=== PATIENT | female | born 1960 | race Caucasian/White ===

== ENCOUNTER → 2018-01-30 16:22 | Outpatient (REF) | payer BC, SELFPAY ==
[2018-01-30 21:05] LABS: Abs Immature Grans 0.04 k/cumm (0.0-0.09); Absolute Basophil Count 0.01 k/cumm (0.0-0.2); Absolute Monocyte Count 0.84 k/cumm (0.11-0.7); Basophils % 0.1; Eosinophils % 0.9; HCT 41.6 % (36.0-46.0); HGB 14.5 g/dL (12.0-15.5); Immature Grans % 0.4; Lymphocytes % 19.7; Mean Corp. HGB Concentration 34.9 g/dL (32.0-36.0); Mean Corpuscular Hemoglobin 30.5 pg (27.0-33.0); Mean Corpuscular Volume 87.4 fL (80-95); Monocytes % 7.7; Neutrophils % 71.2; Platelet Count 265 x1000/uL (130-400); RBC 4.76 m/cumm (4.00-5.20); White Blood Cell Count 10.94 k/cumm (4.4-10.8)
[2018-01-30 21:08] LABS: Absolute Lymphocyte Count 2.16 k/cumm (1.2-3.4); Absolute Neutrophil Count 7.79 k/cumm (1.2-6.7)
[2018-01-30 21:23] LABS: ALT 48 U/L (12-78); AST 25 U/L (15-37); Albumin 4.3 g/dL (3.4-5.0); Alkaline Phosphatase 96 U/L (46-116); Anion Gap 12.6 mmol/L (3-11); BUN 16 mg/dL (7-18); Bilirubin, Total 0.6 mg/dL (0.2-1.0); CO2 25.4 mmol/L (21.0-32.0); CREATININE 0.81 mg/dL (0.55-1.02); Calcium 8.9 mg/dL (8.5-10.1); Chloride 99 mmol/L (98-107); Glucose 137 mg/dL (70-100); Magnesium 2.1 mg/dL (1.8-2.4); Potassium 4.1 mmol/L (3.5-5.1); Sodium 137 mmol/L (136-145); TSH (W/Ref FT4) 0.95 uIU/mL (0.358-3.74); Total Protein 7.5 g/dL (6.4-8.2)
== END ==
LOC: NCHCN 16:22
PROVIDERS: Visit Provider Nurse Practitioner
DX: R51 Headache (principal)
CPT/HCPCS: 80053; 83735; 84443; 85025

== ENCOUNTER → 2018-02-05 01:10 | Outpatient (CLI) | payer BC, SELFPAY ==
--- NOTE | 2018-02-05 14:00 | DI.RPTCT_ITS ---
SYMPTOMS/DIAGNOSIS: HEADACHES, R51 CRANIAL CT: A noncontrast cranial CT was performed. The ventricular system is normal in appearance. There is no evidence of an intracranial mass lesion. There is no evidence of a subdural or epidural hematoma. No focal areas of decreased attenuation are seen. CONCLUSION: Normal noncontrast cranial CT.
== END ==
PROVIDERS: Visit Provider Nurse Practitioner
DX: R51 Headache (principal)
CPT/HCPCS: 70450

== ENCOUNTER → 2018-02-05 18:07 | Outpatient (REF) | payer BC, SELFPAY ==
[2018-02-05 21:28] LABS: Bilirubin Negative (Negative); Blood Negative (Negative); Clarity Clear; Glucose Negative (Negative); Ketones Negative (Negative); Leukocyte Esterase Negative (Negative); Nitrite Negative (Negative); Urobilinogen 0.2 EU/dL (Up TO 0.2)
== END ==
LOC: NCHCN 18:07
PROVIDERS: Visit Provider Nurse Practitioner
DX: N39.0 Urinary tract infection, site not specified (principal)
CPT/HCPCS: 81003

== ENCOUNTER 2018-04-17 13:28 | Outpatient (REF) | payer BC, SELFPAY ==
[2018-04-17 21:25] LABS: Magnesium 1.8 mg/dL (1.8-2.4); TSH 0.82 uIU/mL (0.358-3.74)
[2018-04-17 21:58] LABS: ESR 14 MM/HR (0-30)
[2018-04-17 22:04] LABS: Vitamin B12 551 pg/mL (193-986)
[2018-04-20 09:21] LABS: Cyclic Citrullinated Peptide <2.5 U/mL (<5.0)
[2018-04-20 12:25] LABS: Hepatitis C Ab w Rflx HCV PCR Negative (NEGAT)
[2018-04-20 13:55] LABS: ANA Interpretation Negative (NEGAT)
== END 2018-04-17 13:48 ==
LOC: NCHCN 13:28
PROVIDERS: Visit Provider Nurse Practitioner Family
DX: Z00.00 Encounter for general adult medical examination without abnormal findings (principal); R05 Cough; R47.01 Aphasia; L81.4 Other melanin hyperpigmentation; R20.2 Paresthesia of skin; M25.50 Pain in unspecified joint; M54.16 Radiculopathy, lumbar region; Z11.59 Encounter for screening for other viral diseases; Z01.84 Encounter for antibody response examination
CPT/HCPCS: 85652; 86141; 86200; 86803; 82607; 83735; 84443; 86038; 86140

== ENCOUNTER 2019-01-28 08:35 | Outpatient (REF) | payer BC, SELFPAY ==
[2019-01-28 12:23] LABS: ALT 30 U/L (12-78); AST 17 U/L (15-37); Albumin 3.6 g/dL (3.4-5.0); Alkaline Phosphatase 93 U/L (46-116); Anion Gap 9.9 mmol/L (3-11); BUN 13 mg/dL (7-18); Bilirubin, Total 0.6 mg/dL (0.2-1.0); CO2 27.1 mmol/L (21.0-32.0); CREATININE 0.71 mg/dL (0.55-1.02); Calcium 8.7 mg/dL (8.5-10.1); Chloride 103 mmol/L (98-107); Glucose 86 mg/dL (70-100); Magnesium 1.8 mg/dL (1.8-2.4); Potassium 4.3 mmol/L (3.5-5.1); Sodium 140 mmol/L (136-145); Total Protein 6.8 g/dL (6.4-8.2); Vitamin B12 519 pg/mL (193-986)
== END 2019-01-28 08:55 ==
LOC: NCHCN 08:35
PROVIDERS: Visit Provider Nurse Practitioner Family
DX: I10 Essential (primary) hypertension (principal); E78.5 Hyperlipidemia, unspecified
CPT/HCPCS: 80053; 82607; 83735

== ENCOUNTER 2019-02-04 13:16 | Outpatient (REF) | payer BC, SELFPAY ==
[2019-02-04 21:36] LABS: C-Reactive Protein 0.21 mg/dL (0.0-0.3)
[2019-02-08 09:19] LABS: Cyclic Citrullinated Peptide <2.5 U/mL (<5.0)
[2019-02-08 13:14] LABS: Rheumatoid Factor <8 IU/mL (<12.5)
[2019-02-08 15:43] LABS: ANA Interpretation Negative (NEGAT)
== END 2019-02-04 13:36 ==
LOC: NCHCN 13:16
PROVIDERS: PCP Nurse Practitioner Family; Visit Provider Nurse Practitioner Family
DX: I10 Essential (primary) hypertension (principal); M25.50 Pain in unspecified joint; M54.16 Radiculopathy, lumbar region; G43.909 Migraine, unspecified, not intractable, without status migrainosus; G44.209 Tension-type headache, unspecified, not intractable; R47.01 Aphasia; F43.20 Adjustment disorder, unspecified; L98.9 Disorder of the skin and subcutaneous tissue, unspecified
CPT/HCPCS: 85652; 86200; 86038; 86140; 86431

== ENCOUNTER 2019-02-05 12:04 | Outpatient (REF) | payer BC, SELFPAY ==
[2019-02-05 13:08] LABS: ESR 10 mm/hr (0-30)
== END 2019-02-05 12:24 ==
LOC: NCHCN 12:04
PROVIDERS: PCP Nurse Practitioner Family; Visit Provider Nurse Practitioner Family
DX: I10 Essential (primary) hypertension (principal); M54.16 Radiculopathy, lumbar region; M25.50 Pain in unspecified joint; G43.909 Migraine, unspecified, not intractable, without status migrainosus; G44.209 Tension-type headache, unspecified, not intractable
CPT/HCPCS: 85652

== ENCOUNTER 2019-05-06 08:26 | Outpatient (REF) | payer BC, SELFPAY ==
--- NOTE | 2019-05-06 07:47 | LIPBX_PTH ---
PATIENT: Yen Matthews LOC: N U#:[id number] AGE/SX: 58/F ROOM: RE05/06/[address]: Chevy Bowser MD : 1960 BED: DIS: 05/06/2019 SPEC #: [id number] RECD: 05/06/19 18:23 STATUS: PARVEEN REQ #: [id number] FANTA: 05/06/19 07:[address]: Chevy Bowser DEPT: Surgical Specimen RECD BY: Magy Garrido ENTERED: 05/06/19 18:24 SP TYPE: LIPBX OTHR DR: Joan Saez Tissues: 1 - LIP BIOPSY/RESECTION Procedures: GROSS AND MICRO LEVEL 4 Comments: [id number]
== END 2019-05-06 08:46 ==
LOC: LBN 08:26
PROVIDERS: PCP Nurse Practitioner Family; Visit Provider Otolaryngology
DX: C44.01 Basal cell carcinoma of skin of lip (principal)
CPT/HCPCS: 88305

== ENCOUNTER 2019-06-01 13:40 | Outpatient (CLI) | payer BC, SELFPAY ==
[2019-06-01 14:20] VITALS: BP 125/77; PULSE 71; RESP 16; TEMP 36.7; O2SAT 97
--- NOTE | 2019-06-01 15:22 | PDOC.PAIN ---
Pain Clinic Procedure Note Procedure Note Procedure Note: OCCIPITAL NERVE BLOCK PROCEDURE NOTE The patient complains of left occipital head pain. Dx: Left Greater and Lesser Occipital Neuralgia Post-operative diagnosis: same as above ROGELIO LENNON was greeted by the nurse who verified patients name and . Ms Lennon was interviewed and the medical record reviewed. There were no medical, pharmacologic, radiographic, or other structural contraindications to attempting left greater and lesser occipital nerve blocks. Risks and potential side effects were discussed. The potential benefits of the procedure were reviewed with Ms Lennon and her voiced concerns were addressed. After obtaining informed consent, the patient consent form was signed. Standard time-out procedure was performed. ROGELIO was placed in the prone position on the examination table. The occipital protuberance was palpated. The skin just to left side of the occipital protuberance and out 2 inches lateral to the protuberance was thoroughly prepared with an alcohol preparation. Next, I entered the skin to each side of the protuberance with a 1.5 25G spinal needle. Aspiration revealed no blood or other fluid. Next, I injected 2 cc of preservative-free 1% Lidocaine with 0.5cc of dexamethasone (10mg/cc) and removed the needle. I then placed the needle 2 inches lateral mastoid process on th left side to target the lesser greater occipital nerve. Next, I injected 2 cc of preservative-free 1% Lidocaine mixed with 0.5cc of dexamethasone (10mg/cc) to each side and removed the needles. Follow up plans and appointments were discussed with ROGELIO . Post procedure instruction was given. Having met discharge criteria he was discharged from the [facility]. I personally performed this entire procedure. Comment: patient expressed concerns today that she feels there is another reason for her headache, she is willing to try today's injection to see if her headache improves, but she really wishes one of her physicians is willing to order a CT head to make sure nothing is wrong inside her head. She also is dealing with the sudden passing of her niece froma MVA about two weeks ago, she is very stressed out from an emotional perspective. She tolerated procedure well and she feels left sided neck and posterior headache is about 50% improved after the injection, but she will continue to monitor her symptoms. Chavo Velez MD Attending Physician - Pain Management
[2019-06-01] MEDS: Dexamethasone Sod. Phos./Pres-Free 10 MG/ML VIAL IJ (15:35)
== END 2019-06-01 14:00 ==
PROVIDERS: PCP Nurse Practitioner Family; Visit Provider Internal Medicine
DX: M54.81 Occipital neuralgia (principal)
CPT/HCPCS: 64405

== ENCOUNTER 2019-07-23 01:55 | Outpatient (CLI) | payer BC, SELFPAY ==
--- NOTE | 2019-07-23 14:40 | DI.MRI_ITS ---
EXAM: MR BRAIN WO CLINICAL HISTORY: new headache G44.52. TECHNIQUE: Multiplanar multisequence MRI was performed. COMPARISON: No exams were available for comparison FINDINGS: MR of the brain was performed according to the usual protocol. Ventricular system is normal in kurt andersen. There are nonspecific scattered foci of abnormal signal in periventricular and subcortical wh ite matter T2 weighted and FLAIR images. These presumably represent areas of microvascular ischemia. Susceptibility weighted imaging shows no evidence of intracranial hemorrhage. Diffusion-weighted nesha ging shows no evidence of cerebral infarction. The orbital and temporal bone structures appear intac t. Pituitary is unremarkable. There is normal flow void in the xrfxgs-sk-Sfrzma vasculature. IMPRESSION: No evidence of acute intracranial process.
== END 2019-07-23 02:15 ==
PROVIDERS: PCP Nurse Practitioner Family; Visit Provider Nurse Practitioner Adult Health
DX: G44.52 New daily persistent headache (NDPH) (principal); I67.82 Cerebral ischemia
CPT/HCPCS: 70551

== ENCOUNTER 2019-08-10 02:04 | Outpatient (CLI) | payer BC, SELFPAY ==
--- NOTE | 2019-08-10 | DI.MAMMO_ITS ---
EXAM: MG MAMMO SCREENING CLINICAL HISTORY: SCREENING Z12.31. TECHNIQUE: Bilateral full field digital CC and MLO mammographic images were obtained with 3D tomosyn thesis and utilizing computer aided detection (CAD). COMPARISON: Available for comparison. FINDINGS: Masses/Architectural Distortion: None seen. Microcalcifications: No suspicious pleomorphic-type are seen. Skin Thickening/Nipple Retraction: None. IMPRESSION: 1. No significant interval change with no specific features of malignancy noted. 2. Unless there is more urgent need, screening mammography is recommended, as per [employer] guidelines. ACR BI-RAD Category- 1 Negative Breast Density - Category B - Scattered areas of fibroglandular density A negative radiographic report should not delay biopsy if a dominant or clinically suspicious mass is present. Up to ten percent of cancers are not identified on mammography. A negative report may reinforce clinical impression. Adenosis and dense breasts may obscure an underlying neoplasm. False positive reports average 6 to 10%. Patient will receive a letter notifying them of these results.
== END 2019-08-10 02:24 ==
PROVIDERS: PCP Nurse Practitioner Family; Visit Provider Nurse Practitioner Family
DX: Z12.31 Encounter for screening mammogram for malignant neoplasm of breast (principal)
CPT/HCPCS: 77063; 77067

== ENCOUNTER 2020-01-26 03:19 | Outpatient (CLI) | payer BC, SELFPAY ==
--- NOTE | 2020-01-26 | DI.MRI_ITS ---
EXAM: MR LUMBAR SPINE WO CLINICAL HISTORY: LUMBAR BACK PAIN, WITH RADICULOPATHY,M54.16. TECHNIQUE: Multiplanar multisequence MRI was performed. COMPARISON: No exams were available for comparison FINDINGS: MR examination lumbosacral spine was performed according to usual protocol. Note is made of Colette dis esmer vertebral signal changes at the L5-S1 level consistent with disc degeneration. No other signific ant bony signal abnormality seen. There is an apparent healed bilateral L5 spondylolysis without spondylolisthesis. There mild hypertr ophic degenerative changes of the facet joints at L4-5 and L5-S1. Conus medullaris appears intact. There are disc bulges noted of L3-4 L4-5 and L5-S1. There is no di sc herniation at these levels or elsewhere in the lumbar spine. There is no central canal spinal betty nosis. There does appear to be slight neural foraminal stenosis bilaterally at L5-S1. IMPRESSION: Probable healed spondylolysis bilaterally at L5 without spondylolisthesis. Mild bilateral neural foraminal narrowing at L5-S1. DATA REPOSITORY:
== END 2020-01-26 03:39 ==
PROVIDERS: PCP Nurse Practitioner Family; Visit Provider Nurse Practitioner Family
DX: M47.26 Other spondylosis with radiculopathy, lumbar region (principal); M54.16 Radiculopathy, lumbar region; M48.07 Spinal stenosis, lumbosacral region
CPT/HCPCS: 72148

== ENCOUNTER 2020-02-08 11:48 | Outpatient (REF) | payer BC, SELFPAY ==
[2020-02-08 22:23] LABS: ALT 34 U/L (14-59); AST 18 U/L (15-37); Albumin 4.2 g/dL (3.4-5.0); Alkaline Phosphatase 74 U/L (46-116); Anion Gap 9.9 mmol/L (3-11); BUN 7 mg/dL (7-18); Bilirubin, Total 1.1 mg/dL (0.2-1.0); CO2 26.1 mmol/L (21.0-32.0); CREATININE 0.53 mg/dL (0.55-1.02); Calcium 9.2 mg/dL (8.5-10.1); Chloride 101 mmol/L (98-107); Glucose 97 mg/dL (74-106); Magnesium 1.9 mg/dL (1.8-2.4); Potassium 4.3 mmol/L (3.5-5.1); Sodium 137 mmol/L (136-145); Total Protein 7.1 g/dL (6.4-8.2); Vitamin B12 587 pg/mL (193-986)
== END 2020-02-08 12:08 ==
LOC: NCHCN 11:48
PROVIDERS: PCP Nurse Practitioner Family; Visit Provider Nurse Practitioner Family
DX: I10 Essential (primary) hypertension (principal); F41.9 Anxiety disorder, unspecified; K21.9 Gastro-esophageal reflux disease without esophagitis; F43.20 Adjustment disorder, unspecified; G43.909 Migraine, unspecified, not intractable, without status migrainosus; M25.50 Pain in unspecified joint; M54.16 Radiculopathy, lumbar region; J30.2 Other seasonal allergic rhinitis
CPT/HCPCS: 80053; 82607; 83735

== ENCOUNTER 2020-04-11 09:59 | Outpatient (CLI) | payer BC, SELFPAY ==
--- NOTE | 2020-04-11 06:00 | DI.RAD_ITS ---
EXAM: XR PAIN CLINIC SACRIOILIAC 2V CLINICAL HISTORY: Dx: Sacroiliac Joint Dysfunction, LT SI JOINT INJECTION TECHNIQUE: Fluoroscopy was provided for the referring physician for guidance with performing injecti on procedure. COMPARISON: No exams were available for comparison FINDINGS: Please see procedure note for details. FLUORO TIME: 26.2 seconds RADIATION DOSE DELIVERED:
[2020-04-11 10:09] VITALS: BP 129/77; PULSE 56; RESP 16; TEMP 36.7; O2SAT 96
--- NOTE | 2020-04-11 10:48 | PDOC.PAIN_ITS ---
Pain Clinic Procedure Note Procedure Note Procedure Note: INTRA-ARTICULAR SI JOINT INJECTION ROGELIO QUEZADA has been referred to the [facility] for intra- articular SI joint injection. Pre-operative diagnosis: disorder of sacrum Post-operative diagnosis: same as above COMMENTS: patient has left sided lower back pain with radiation to left hip, buttock. she was evaluated by Ms Lia Flores and diagnosed with left sacroiliac mediated pain. she is referred for a left SI joint injection for both diagnostic and therapeutic purposes. Patient was interviewed and the medical record reviewed. There were no medical, pharmacologic, radiographic or other structural contraindications to attempting fluoroscopically guided intra-articular SI joint injection. Risks and expected side effects as well as potential benefit of the procedure were reviewed and voi elida concerns addressed. The printed consent form was signed and witnessed. Standard time-out procedure was performed. Patient was placed in the prone position on the fluoroscopy table and automated blood pressure cuff and pulse oximeter applied. The skin entry point for approaching left SI joints was identified under the most advantageous fluoroscopic view and marked. Following thorough Chlorhexadine preparation of the skin and draping and 1% lidocaine infiltration of the skin entry point and subcutaneous tissues, a 22 gauge spinal needle was placed under fluoroscopic guidance into left SI joints was identified under the most advantageous fluoroscopic view and marked. Following thorough Chlorhexadine preparation of the skin and draping and 1% lidocaine infiltration of the skin entry point and subcutaneous tissues, a 22 gauge spinal needle was placed under fluoroscopic guidance into left SI joint. Intra-articular placement was confirmed by a clear arthrogram resulting from the injection of 0.25ml Omnipaque 240, 1ml 1% lidocaine, and 40mg Depomedrol were injected intra-articularily with an initial reproduction of a significant component of the usual pain. Vital signs were stable throughout the procedure and were as recorded in the docflowsheet by the nursing staff. Follow up plans and appointments were discussed with the patient. Post procedure instruction was given as documented in nursing documentation and having met discharge criteria, and was discharged from the [facility]. COMMENTS: patient tolerated procedure well. Chavo Velez MD Pain Management CC: Joan Saez
[2020-04-11 10:57] VITALS: BP 136/81; PULSE 57; RESP 13; O2SAT 99
[2020-04-11] MEDS: Lidocaine 1% Pres-Free 5 ML VIAL (10:58)
[2020-04-11] MEDS: methylPREDNISolone ACETATE 40 MG/ML VIAL IJ (10:59)
[2020-04-11] MEDS: Omnipaque 240 MG/ML 50 ML BTL IJ (10:59)
== END 2020-04-11 10:19 ==
PROVIDERS: PCP Nurse Practitioner Family; Visit Provider Internal Medicine
DX: M53.3 Sacrococcygeal disorders, not elsewhere classified (principal)
CPT/HCPCS: 27096; 72200; J1030; Q9967

== ENCOUNTER 2020-05-31 10:54 | Emergency (ER) | payer BC, SELFPAY ==
[2020-05-31] VITALS (14 sets, daily range): BP systolic 125–164; BP diastolic 72–86; PULSE 51–73; RESP 10–20; TEMP 36.3–36.5; O2SAT 94–99
--- NOTE | 2020-05-31 11:00 | RT.EKG_ITS ---
APPROVED REPORT Exam: Resting ECG Patient Location: E HR:58 bpm ECG Measurements Heart Rate 58 AXIS [place] 157 P 20 QRSd 65 QRS 39 QT 400 T 14 QTc 392 Conclusion Sinus bradycardia...rate< 60
--- NOTE | 2020-05-31 11:15 | DI.CT_ITS ---
EXAM: CT HEAD WO CLINICAL HISTORY: ED study: Vertigo, abrupt onset. TECHNIQUE: Imaging Protocol: Axial computed tomography images with coronal and sagittal reformatted images were created and reviewed COMPARISON: CT HEAD WITHOUT CONTRAST from 02/05/2018 FINDINGS: There are no skull fractures nor fluid in the visualized paranasal sinuses. There is no evidence of intracranial hemorrhage, mass effect, or shift of midline structures. There are no extra-axial fluid collections. The ventricles are not enlarged or shifted and there is no blo od within the ventricular system nor within the basal cisterns. IMPRESSION: No acute intracranial findings on this noninfused CT scan of the brain.No significant change compared to prior study January 2018. RADIATION DOSE DELIVERED: 737mGy.cm Total DLP DATA REPOSITORY: All CT scans at this facility are submitted to the National Radiology Data Registry (NRDR) Dose Index Registry (DIR) with the [employer] (ACR). RADIATION OPTIMIZATION: All CT scans at this facility use at least one of these dose optimization te chniques: automated exposure control; mA and/or kV adjustment per patient size (includes targeted exa ms where dose is matched to clinical indication); or iterative reconstruction.
--- NOTE | 2020-05-31 11:17 | W.ED.GENAD ---
Discharge Plan Disposition Patient Disposition: HOME Condition: Improving Discharge Details Clinical Impression: Peripheral vertigo Primary Care Provider: Joan Saez ED Provider: Amilcar East Home Meds and New Rx's Prescriptions: New meclizine 25 mg tablet 25 mg PO TID PRN (Reason: dizziness) Qty: 10 RF: 0 Continued spironolactone 50 mg tablet 50 mg PO DAILY RF: 0 bisacodyl [Dulcolax (bisacodyl)] 5 mg tablet,delayed release (DR/EC) 5 mg PO TID RF: 0 potassium chloride 20 mEq tablet extended release 20 meq PO BID RF: 0 acetaminophen [Tylenol Extra Strength] 500 mg tablet 500 mg PO DAILY RF: 0 fluticasone propionate [Flonase Allergy Relief] 50 mcg/actuation Trevorton,Suspension 1 spray INTRANASAL BID RF: 0 vitamin E 400 unit Capsule 400 unit PO DAILY RF: 0 ascorbic acid (vitamin C) [Vitamin C] 500 mg Tablet 500 mg PO BID RF: 0 gabapentin 300 mg Capsule 600 mg PO HS RF: 0 hydroxyzine HCl 25 mg Tablet 25 mg PO TID PRNRF: 0 loratadine 10 mg tablet 10 mg PO DAILY RF: 0 magnesium oxide 400 mg magnesium tablet 400 mg PO TID RF: 0 diclofenac sodium 1 % gel 4 g topical QID PRN (Reason: joint pain) 6 Days Qty: 100 RF: 11 atorvastatin [Lipitor] 10 MG tablet 10 mg PO HS RF: 0 omeprazole [Prilosec] 40 MG capsule,delayed release(DR/EC) 40 mg PO DAILY RF: 0 losartan 100 MG tablet 100 mg PO DAILY RF: 0 cholecalciferol (vitamin D3) [Vitamin D3] 2,000 UNIT capsule 1,000 units PO DAILY RF: 0 levalbuterol tartrate [Xopenex HFA] 15 GM HFA aerosol inhaler 2 puff Inhalation Q6H PRNRF: 0 Xarelto 20 MG tablet 20 mg PO DAILY RF: 0 Discharge Instructions Instructions: Vertigo (ED), Benign Paroxysmal Positional Vertigo (ED) Additional Instructions: Small, frequent sips of fluids so that she maintain hydration. Sleep with head of bed elevated 30 to 45 degrees for the next 2 nights. No rapid movements of the head or quickly bending over. Use meclizine as needed, as prescribed for persistent dizziness. Continue your regularly prescribed medications. Medical Decision Making 59-year-old female presents with the abrupt onset of dizziness since bending over to grab something out of the fridge last night. Since that time she feels dizziness and unsteadiness of gait. She will note significant stress in her life due to family stressors. She arrives to the ER blood pressure 164/86, rechecked at 138/72. Vital signs otherwise unremarkable. Neurologic exam is without focal deficits. Referred for screening blood work and CT to rule out mass or hemorrhage. The CT is unremarkable. Patient also underwent normal MRI of the brain. Labs note normal CBC, chemistries with sodium 133, potassium 4.0, chloride 97, bicarb 28. BUN 19 creatinine 0.7. Patient was given Ativan for anxiolysis prior to MRI. Patient improved and no further dizziness. No focal neurologic deficits. Consistent with peripheral vertigo. Discussed with her use of as needed meclizine. She is stable and appropriate for outpatient management. HPI General Mode of arrival: ambulatory. Date/Time Provider Initiated Documentation: 05/31/20 11:01. Limitations to Documentation: no limitations. Information obtained by: patient. History of Present Illness 59 year old F presents to the emergency department with the chief complaint of Dizziness since last night, described as moderate, Quality is described as dull, and is localized to the head. Patient reports no radiation. and it has been constant. Rest improves symptom(s), Other factors that worsen symptoms (Standing up quickly) . Patient notes denies headaches, syncope and weakness. Patient did receive the following treatments prior to arrival, none Related Data Home Medications Medication Instructions Recorded Confirmed atorvastatin [Lipitor] 10 mg PO HS 03/19/13 05/31/20 cholecalciferol (vitamin D3) 1,000 units PO DAILY 03/19/13 05/31/20 [Vitamin D3] losartan 100 mg PO DAILY 03/19/13 05/31/20 omeprazole [Prilosec] 40 mg PO DAILY 03/19/13 05/31/20 Xarelto 20 mg PO DAILY 01/27/16 05/31/20 levalbuterol tartrate [Xopenex HFA] 2 puff INHALATION Q6H PRN 01/27/16 05/31/20 acetaminophen 500 mg tablet 500 mg PO DAILY tab 03/10/18 05/31/20 bisacodyl 5 mg tablet,delayed 5 mg PO TID tab 03/10/18 05/31/20 release potassium chloride 20 mEq 20 meq PO BID 03/10/18 05/31/20 tablet,extended release spironolactone 50 mg tablet 50 mg PO DAILY 03/10/18 05/31/20 fluticasone propionate [Flonase 1 spray INTRANASAL BID 04/28/19 05/31/20 Allergy Relief] vitamin E 400 unit PO DAILY 04/28/19 05/31/20 loratadine 10 mg tablet 10 mg PO DAILY 07/06/19 05/31/20 magnesium oxide 400 mg PO TID tab 07/06/19 05/31/20 ascorbic acid (vitamin C) [Vitamin 500 mg PO BID 03/08/20 05/31/20 C] gabapentin 600 mg PO HS 03/08/20 05/31/20 hydroxyzine HCl 25 mg PO TID PRN 03/08/20 05/31/20 diclofenac sodium 1 % topical gel 4 g TOPICAL QID PRN 6 Days #100 g 05/24/20 05/31/20 meclizine 25 mg PO TID PRN #10 tab 05/31/20 Previous Rx's Medication Instructions Recorded diclofenac sodium 1 % topical gel 4 g TOPICAL QID PRN 6 Days #100 g 05/24/20 meclizine 25 mg PO TID PRN #10 tab 05/31/20 Allergies Allergy/AdvReac Type Severity Reaction Status Date / Time lisinopril Allergy Unverified 04/11/20 10:07 sulfamethoxazole Allergy Hives Unverified 04/11/20 10:07 [From Bactrim] trimethoprim [From Bactrim] Allergy Hives Unverified 04/11/20 10:07 venom-honey bee Allergy Unverified 04/11/20 10:07 metoprolol AdvReac Mild Contraindic Unverified 04/11/20 10:07 ated General Stated Complaint: Dizzy/Sync MARION: 2 Review of Systems Narrative: Six systems reviewed and otherwise negative [facility] Medical History Abdominal pain, epigastric Anxiety Aphasia Atrial fibrillation Chronic back pain Chronic cough Dysphagia GERD (gastroesophageal reflux disease) Grief reaction H/O measles Heel spur Hiatal hernia HTN (hypertension) Hyperlipidemia IBS (irritable bowel syndrome) Lactose intolerance Menopausal syndrome (hot flashes) Migraine headache with aura Migraine headache without aura Obesity Paresthesia Preventative health care Screening mammogram, encounter for Seasonal allergies Skin lesion of face Solar lentigo Tension headache Surgical History Achilles tendon tear both repaired here. Colonoscopy - MAC (06/20/17) H/O cardiac radiofrequency ablation H/O esophagogastroduodenoscopy Social History Smoking/Tobacco Use Status: Never Smoking risk assessment performed?: Yes Alcohol Intake: current Alcohol Intake frequency: a few times a week Drug use: Never Substance use type: does not use Household members: spouse Housing: house Number of Children: 2 current occupation: Retired teacher What is your relationship status?: Panel score (0-1 are the most socially isolated patients): 1 What type of physical activity do you participate in: walking, independent ambulation and additional Details: barn chores and stretches with kids at school Frequency: daily Do you feel safe at home: Yes Do you feel safe in your relationship?: Yes Exam Narrative Exam Narrative: GEN: awake, alert, oriented 3. Pleasant, well groomed, interactive. HEAD: Normocephalic, atraumatic ENT: Mucous membranes moist, oropharynx unremarkable, tympanic membranes clear bilaterally external ear exam unremarkable EYES: PERRL, EOMI NECK: Full ROM, no CELSO, no menigismus CHEST/RESP: Nontender, clear to auscultation bilateral, no wheeze/rhonchi/rales CARDIOVASCULAR: RRR, no murmur, rub stephanie. 2+ Rad pulse bilateral ABDOMEN: Soft, nontender, no mass. +Bowel sounds EXT: Full ROM, no edema, no rash Neuro: Cranial nerves II through XII intact, sjquvj-sy-yjtk intact, gait wide-based, otherwise grossly normal neurologic exam, conversant, interactive. Pt states L face sensation intact but diminished Psych: Speech fluent, thoughts congruent, affect normal Course Vital Signs Vital signs: Vital Signs Temperature 36.3 C L 05/31/20 10:58 Pulse 60 05/31/20 10:58 Respiratory Rate 18 05/31/20 10:58 Blood Pressure 164/86 H 05/31/20 10:58 Pulse Oximetry 98 05/31/20 10:58 Temperature 36.3 C L 05/31/20 10:58 Temperature Source Temporal Artery Scan 05/31/20 10:58 Pulse 60 05/31/20 10:58 Respiratory Rate 18 05/31/20 10:58 Respiratory Effort 05/31/20 11:01 Blood Pressure 142/73 H 05/31/20 11:01 Blood Pressure Position Sitting 05/31/20 10:58 Pulse Oximetry 98 05/31/20 10:58 Oxygen Delivery Method Room Air 05/31/20 10:58 Oxygen Flow Rate 0 05/31/20 10:58
[2020-05-31] MEDS: Meclizine 25 MG TAB PO ×2 (11:32)
[2020-05-31] MEDS: Normal Saline 1,000 ML 1000 ML IV (11:33)
[2020-05-31 11:38] LABS: Abs Immature Grans 0.02 10^3/uL (0.0-0.06); Absolute Basophil Count 0.02 10^3/uL (0.0-0.2); Absolute Eosinophil Count 0.11 10^3/uL (0.0-0.7); Absolute Lymphocyte Count 1.97 10^3/uL (1.2-3.4); Absolute Monocyte Count 0.51 10^3/uL (0.1-0.8); Absolute Neutrophil Count 3.09 10^3/uL (1.2-6.7); Basophils % 0.3; Eosinophils % 1.9; HCT 40.5 % (36.0-46.0); Immature Grans % 0.3; Lymphocytes % 34.4; MCH 29.9 pg (27.0-33.0); MCHC 34.6 % (32.0-36.0); MCV 86.4 fL (80-95); MPV 9.3 fL (8.0-11.0); Monocytes % 8.9; Neutrophils % 54.2; Nucleated RBC 0 %; Platelet Count 245 10^3/uL (130-400); RBC 4.69 10^6/uL (3.93-5.22); RDW 13.5 % (11.7-14.6); RDW-SD 42.5 fL; WBC 5.72 10^3/uL (4.4-10.8)
[2020-05-31 11:50] LABS: ALT 32 U/L (14-59); AST 19 U/L (15-37); Albumin 4.1 g/dL (3.4-5.0); Alkaline Phosphatase 66 U/L (46-116); Anion Gap 7.5 mmol/L (3-11); BUN 9 mg/dL (7-18); Bilirubin, Total 0.9 mg/dL (0.2-1.0); CO2 28.5 mmol/L (21.0-32.0); CREATININE 0.78 mg/dL (0.55-1.02); Chloride 97 mmol/L (98-107); Glucose 94 mg/dL (74-106); Sodium 133 mmol/L (136-145); Total Protein 7.3 g/dL (6.4-8.2)
[2020-05-31 11:51] LABS: Troponin I < 0.05 ng/mL (<0.06)
--- NOTE | 2020-05-31 12:00 | DI.MRI_ITS ---
EXAM: MR BRAIN WO CLINICAL HISTORY: Dizziness, L face parasthesia TECHNIQUE: Multiplanar multisequence MRI of the brain was performed. COMPARISON: MR MR BRAIN WO from 07/23/2019 FINDINGS: CEREBRAL PARENCHYMA: No evidence of intracranial hemorrhage, mass effect nor shift of midline structu re. No extraaxial fluid collections. Ventricles are not enlarged nor shifted. There is no significant focal signal abnormality in the cerebellar hemispheres nor within the anant, m idbrain, and thalami. There are numerous FLAIR bright foci of white matter signal abnormality in the Colette ventricular white matter and also in the right external capsule region. These findings are unchanged from the prior M RI study of 07/23/2019. No new additional abnormal brain foci evident. There is no significant focal signal abnormality evident on diffusion imaging to suggest acute ischem ic event. PITUITARY GLAND: No mass nor parasellar abnormality. No obvious abnormality in the cavernous sinuses. FLOW VOIDS: The expected flow void are noted. No evidence of obvious aneurysm nor obvious vascular ma lformation. PARANASAL SINUSES: The visualized paranasal sinuses appear unremarkable. No obvious finding ORBITS: No obvious findings. IMPRESSION: 1. No significant acute intracranial findings on this noninfused MRI of the brain. 2. There are multiple subcentimeter foci of white matter signal abnormality which remain unchanged wh en compared to the prior MRI scan of June 2019.. These are presumably related to areas of prior m icrovascular ischemia. No evidence of new territory infarction. 3. DATA REPOSITORY:
[2020-05-31] MEDS: LORazepam 2 MG/ML VIAL 0.5 MG IVP (12:31)
[2020-05-31 12:33] LABS: Bilirubin Negative (Negative); Blood Negative (Negative); Clarity Clear (Clear); Glucose Negative (Negative); Ketones Negative (Negative); Leukocyte Esterase Negative (Negative); Nitrite Negative (Negative); Specific Gravity 1.015 (1.005-1.025); Urobilinogen 0.2 EU/dL (Up TO 0.2); pH 8.5 (5-8)
== END 2020-05-31 14:38 | disposition home or self-care (01) ==
PROVIDERS: Emergency Provider Emergency Medicine; PCP Nurse Practitioner Family
DX: H81.10 Benign paroxysmal vertigo, unspecified ear (principal); I10 Essential (primary) hypertension
CPT/HCPCS: 36415; 80053; 93005; 96361; 96374; 99284; 70450; 70551; 81003; 83735; 84484; 85025; 93010; J2060

== ENCOUNTER 2020-06-04 03:24 | Emergency (ER) | payer BC, SELFPAY ==
[2020-06-04] VITALS (17 sets, daily range): BP systolic 94–134; BP diastolic 58–98; PULSE 68–160; RESP 11–24; TEMP 36.2; O2SAT 95–99
--- NOTE | 2020-06-04 03:15 | RT.EKG_ITS ---
APPROVED REPORT Exam: Resting ECG Patient Location: E HR:159 bpm ECG Measurements Heart Rate 159 AXIS [place] 87 P 78 QRSd 70 QRS 61 QT 325 T 261 QTc 530 Conclusion Sinus tachycardia...rate> 99 Nonspecific T abnormalities, inferior leads...T <-0.10mV, II III aVF Prolonged QT interval...QTc >500mS possible aflutter with 2:1 conduction
--- NOTE | 2020-06-04 03:30 | DI.CT_ITS ---
EXAM: CT THORAX ABD/PEL CTA CLINICAL HISTORY: upperback pain and abdominal pain, ?dissection. TECHNIQUE: Imaging Protocol: Axial CT angiography was performed with multi-slice acquisition and m ulti-planar and/or 3D reconstructions. CONTRAST MATERIAL: Intravenous: Omnipaque 350 Contrast volume:90 mL Oral: No COMPARISON: No exams were available for comparison FINDINGS: CHEST: Pulmonary Arteries: No evidence of filling defect to suggest pulmonary emboli. Tracheobronchial tree: Patent where visualized. Mediastinum and Kyung: No dominant adenopathy or fluid collection. Pulmonary parenchyma: No consolidation or dominant measurable mass. No architectural distortion. Mild bilateral basilar atelectasis. Pleura: No effusion or pneumothorax. Heart: The heart is not dilated. Mild coronary artery calcification. No significant pericardial effu yunier. Aorta: Thoracic aorta non-dilated. Mild atherosclerosis. 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 Bones: Mild degenerative changes are present. ABDOMEN AND PELVIS: Abdomen: Celiac axis/mesenteric arteries: No evidence of occlusion or significant stenosis. There may be mild narrowing at the origin of the DANILO. Renal Arteries: No evidence of occlusion or significant stenosis. There is a single renal artery per fusing each kidney. Aorta: No evidence of occlusion or significant stenosis. No aneurysm or dissection. Pelvis: Iliac Arteries: No evidence of occlusion or significant stenosis. Common Femoral Arteries: No evidence of occlusion or significant stenosis. ABDOMEN: Liver: Normal density. No measurable mass. Portal, Superior Mesenteric, and Splenic Veins: Unremarkable. Gallbladder and Biliary Tract: No radiodense calculus or dilation. Pancreas: Normal density, no abnormal calcifications or inflammatory process. Spleen: Normal. Adrenals: No masses seen. Kidneys: Normal size, contour and axis. No radiodense stones or obstructive uropathy. No masses seen. Bowel: No obstruction or bowel wall thickening. Appendix is unremarkable. Peritoneal Cavity: No ascites, collection or mesenteric inflammatory response. Lymph Nodes: Within normal limits. Bones: There are mild degenerative changes present. Soft Tissues: Unremarkable. PELVIS: Bladder: Symmetric distention, no gross wall thickening. Reproductive Organs: Unremarkable as visualized. Lymph Nodes: Within normal limits. Bones: Mild degenerative changes are present. IMPRESSION: 1. No evidence of thoracic aortic aneurysm, dissection or pulmonary embolus. 2. No evidence of abdominal aortic aneurysm or dissection. 3. Question of mild narrowing of the origin of the DANILO. 4. No acute abdominal or pelvic process. RADIATION DOSE DELIVERED: 1,130.25mGy.cm Total DLP DATA REPOSITORY: All CT scans at this facility are submitted to the National Radiology Data Registry (NRDR) Dose Index Registry (DIR) with the [employer] (ACR). RADIATION OPTIMIZATION: All CT scans at this facility use at least one of these dose optimization te chniques: automated exposure control; mA and/or kV adjustment per patient size (includes targeted exa ms where dose is matched to clinical indication); or iterative reconstruction.
--- NOTE | 2020-06-04 03:35 | ED.GENADUL_ITS ---
Discharge Plan Disposition Patient Disposition: HOME Condition: Stable Discharge Details Clinical Impression: Atrial fibrillation, Atrial fibrillation with RVR Primary Care Provider: Joan Saez ED Provider: Mason Kaminski Home Meds and New Rx's Prescriptions: Continued spironolactone 50 mg tablet 50 mg PO DAILY RF: 0 bisacodyl [Dulcolax (bisacodyl)] 5 mg tablet,delayed release (DR/EC) 5 mg PO TID RF: 0 potassium chloride 20 mEq tablet extended release 20 meq PO BID RF: 0 acetaminophen [Tylenol Extra Strength] 500 mg tablet 500 mg PO DAILY RF: 0 fluticasone propionate [Flonase Allergy Relief] 50 mcg/actuation [place],Suspension 1 spray INTRANASAL BID RF: 0 vitamin E 400 unit Capsule 400 unit PO DAILY RF: 0 ascorbic acid (vitamin C) [Vitamin C] 500 mg Tablet 500 mg PO BID RF: 0 gabapentin 300 mg Capsule 300 mg PO TID RF: 0 hydroxyzine HCl 25 mg Tablet 25 mg PO TID PRNRF: 0 loratadine 10 mg tablet 10 mg PO DAILY RF: 0 magnesium oxide 400 mg magnesium tablet 400 mg PO TID RF: 0 diclofenac sodium 1 % gel 4 g topical QID PRN (Reason: joint pain) 6 Days Qty: 100 RF: 11 atorvastatin [Lipitor] 10 MG tablet 10 mg PO HS RF: 0 omeprazole [Prilosec] 40 MG capsule,delayed release(DR/EC) 40 mg PO DAILY RF: 0 losartan 100 MG tablet 100 mg PO DAILY RF: 0 cholecalciferol (vitamin D3) [Vitamin D3] 2,000 UNIT capsule 1,000 units PO DAILY RF: 0 levalbuterol tartrate [Xopenex HFA] 15 GM HFA aerosol inhaler 2 puff Inhalation Q6H PRNRF: 0 Xarelto 20 MG tablet 20 mg PO DAILY RF: 0 diltiazem HCl 30 mg tablet 120 mg PO PRN PRN (Reason: afib) RF: 0 meclizine 25 mg tablet 25 mg PO TID PRN (Reason: dizziness) Qty: 10 RF: 0 Discharge Instructions Instructions: A-fib (Atrial Fibrillation) (ED) Additional Instructions: your were in atrial fibrillation with high rates initially but was controlled with IV diltiazem. begin taking your oral diltiazem once daily follow up with your hospice care sales consultant as soon as possible, I placed you on our follow up list to try and expedite follow up if you feel more ill, have worsening pain or difficulty breathing return to the emergency department Medical Decision Making 59 yo female with hx of afib on xarelto, gerd, htn, who comes in with complaints of feeling heart racing all day since waking up Friday, intermittent nausea and called ems tonight after she was so lightheaded she felt she may fall over. She denies chest pain or pressure but earlier this evening did have upper back pain radiating to the abdomen area making her have nausea. She denies pain now. She denies fevers, chills, dyspnea. She arrives with a tachycardia rhythm that appear to be aflutter on the monitor and suspect 2:1 conduction as she is staying in the 150's consistently. She took oral cardizem she takes prn yesterday and evening around 6pm. Will tx with IV dilt and monitor, and evaluate for nstemi,and given the upper back pain concern for possible dissection will obtain CTA. No hypoxia orevidence of dvt on exam so doubt PE pt bp stable, had several brief periods of 110 HR but still in the 150's, will give another bolus dose and infusion of diltiazem running pt's HR after second dose of dilt was in the 60-80 range so infusion was stopped and her palpitations have ceased. Awaiting ct read, labs unremarkable. pt's HR off a dilt drip for an hour in the 60's and she is laying in bed eyes closed and awakens to voice in no distress. Given her HR has now been controlled for an hour off of dilt drip feel she can be d/c'd and f/u with her hospice care sales consultant Dr. Sepideh burks for afib. She will begin taking her cardizem 120mg er daily until she follow up with her hospice care sales consultant, return precautions given. Given over 12 hours of symptoms do not feel repeat troponin indicated. Differential Diagnosis Differential Diagnosis: aflutter, afib, electrolyte abnormality, nstemi, dissection Medical Records Medical records reviewed: Yes I reviewed the patient's medical records. Imaging Data Radiologic Study: Attestation: I personally reviewed and interpreted this imaging study as follows: Imaging: CT Scan Radiologist's impression: no acute findings on cta Lab Data Lab results reviewed: Yes I reviewed the patient's lab results. ECG Data Attestation: I personally reviewed and interpreted this ECG (s) as follows: Prior ECG tracings: not available for review Interpretation: suspect aflutter with 2:1 conduction on first ekg, rate of 160, pr 87, qtc 530 2nd ekg afib with rate of 80, qtc 443, no acute st twave ischemic findings HPI General Mode of arrival: ambulatory . Date/Time Provider Initiated Documentation: 06/04/20 03:32 . Limitations to Documentation: no limitations . Information obtained by: patient . History of Present Illness 59 year old F presents to the emergency department with the chief complaint of palpitations, described as moderate, and it has been constant. No relieving factors improve symptom(s), No exacerbating factors reported . Patient notes diaphoresis. Related Data Home Medications Medication Instructions Recorded Confirmed atorvastatin [Lipitor] 10 mg PO HS 03/19/13 06/04/20 cholecalciferol (vitamin D3) 1,000 units PO DAILY 03/19/13 06/04/20 [Vitamin D3] losartan 100 mg PO DAILY 03/19/13 06/04/20 omeprazole [Prilosec] 40 mg PO DAILY 03/19/13 06/04/20 Xarelto 20 mg PO DAILY 01/27/16 06/04/20 levalbuterol tartrate [Xopenex HFA] 2 puff INHALATION Q6H PRN 01/27/16 06/04/20 acetaminophen 500 mg tablet 500 mg PO DAILY tab 03/10/18 06/04/20 bisacodyl 5 mg tablet,delayed 5 mg PO TID tab 03/10/18 06/04/20 release potassium chloride 20 mEq 20 meq PO BID 03/10/18 06/04/20 tablet,extended release spironolactone 50 mg tablet 50 mg PO DAILY 03/10/18 06/04/20 fluticasone propionate [Flonase 1 spray INTRANASAL BID 04/28/19 06/04/20 Allergy Relief] vitamin E 400 unit PO DAILY 04/28/19 06/04/20 loratadine 10 mg tablet 10 mg PO DAILY 07/06/19 06/04/20 magnesium oxide 400 mg PO TID tab 07/06/19 06/04/20 ascorbic acid (vitamin C) [Vitamin 500 mg PO BID 03/08/20 06/04/20 C] gabapentin 300 mg PO TID 03/08/20 06/04/20 hydroxyzine HCl 25 mg PO TID PRN 03/08/20 06/04/20 diclofenac sodium 1 % topical gel 4 g TOPICAL QID PRN 6 Days #100 g 05/24/20 05/31/20 meclizine 25 mg PO TID PRN #10 tab 05/31/20 diltiazem HCl 120 mg PO PRN PRN 06/04/20 06/04/20 Previous Rx's Medication Instructions Recorded diclofenac sodium 1 % topical gel 4 g TOPICAL QID PRN 6 Days #100 g 05/24/20 meclizine 25 mg PO TID PRN #10 tab 05/31/20 Allergies Allergy/AdvReac Type Severity Reaction Status Date / Time lisinopril Allergy Other (See Unverified 06/04/20 03:35 Comment) sulfamethoxazole Allergy Hives Unverified 06/04/20 03:35 [From Bactrim] trimethoprim [From Bactrim] Allergy Hives Unverified 06/04/20 03:35 venom-honey bee Allergy Unverified 06/04/20 03:35 metoprolol AdvReac Mild Cardiac Unverified 06/04/20 03:35 Dysrythmia General Stated Complaint: Chest Pain MARION: 2 Review of Systems All systems reviewed & are unremarkable except as noted in HPI and below Constitutional Constitutional: Denies chills, Denies fever(s) and Denies weakness Cardiovascular Cardiovascular: Denies dyspnea Respiratory Respiratory: Denies cough and Denies dyspnea Gastrointestinal Gastrointestinal: Denies vomiting Musculoskeletal Musculoskeletal: Denies joint swelling Neurologic Neurologic: Denies weakness [facility] Medical History Abdominal pain, epigastric Anxiety Aphasia Atrial fibrillation Chronic back pain Chronic cough Dysphagia GERD (gastroesophageal reflux disease) Grief reaction H/O measles Heel spur Hiatal hernia HTN (hypertension) Hyperlipidemia IBS (irritable bowel syndrome) Lactose intolerance Menopausal syndrome (hot flashes) Migraine headache with aura Migraine headache without aura Obesity Paresthesia Preventative health care Screening mammogram, encounter for Seasonal allergies Skin lesion of face Solar lentigo Tension headache Surgical History Achilles tendon tear both repaired here. Colonoscopy - [facility] (06/20/17) H/O cardiac radiofrequency ablation H/O esophagogastroduodenoscopy Social History Smoking/Tobacco Use Status: Never Smoking risk assessment performed?: Yes Alcohol Intake: current Alcohol Intake frequency: a few times a week Drug use: Never Substance use type: does not use Household members: spouse Housing: house Number of Children: 2 current occupation: Retired teacher What is your relationship status?: Panel score (0-1 are the most socially isolated patients): 1 What type of physical activity do you participate in: walking, independent ambulation and additional Details: barn chores and stretches with kids at school Frequency: daily Do you feel safe at home: Yes Do you feel safe in your relationship?: Yes Exam Const General: no acute distress Orientation: alert HENMT Head: normal to inspection Ears: external ears normal General nose exam: external nose normal Mouth: moist mucous membranes Eyes General: appearance normal, both eyes and all related structures Neck Neck: normal visual inspection Resp Effort & Inspection: normal respiratory effort and able to speak in complete sentences Cardio Rate: tachycardic Skin General skin exam: no rashes or lesions noted Neuro General: patient alert and patient oriented x3 Extrem General: normal to inspection Psych Mental Status: mental status grossly normal Course Vital Signs Vital signs: Vital Signs Temperature 36.2 C L 06/04/20 03:24 Pulse 158 H 06/04/20 03:24 Respiratory Rate 16 06/04/20 03:24 Blood Pressure 129/94 H 06/04/20 03:24 Pulse Oximetry 99 06/04/20 03:24 Temperature 36.2 C L 06/04/20 03:24 Temperature Source Skin 06/04/20 03:24 Pulse 158 H 06/04/20 03:24 Respiratory Rate 16 06/04/20 03:24 Blood Pressure 129/94 H 06/04/20 03:24 Blood Pressure Position Sitting 06/04/20 03:24 Pulse Oximetry 99 06/04/20 03:24 Oxygen Delivery Method Room Air 06/04/20 03:24 Oxygen Flow Rate 0 06/04/20 03:24 Pain Level 0 06/04/20 03:24 Critical Care Time Critical Care Time Critical Care Time: Yes Total Critical Care Time: 60 (minutes) Attestation: time spent on frequent reassessments and hemodynamic monitoring in a patient with aflutter with rapid ventricular response and potential to deteriorate at any time and required IV AV vinod blockers
[2020-06-04 03:48] LABS: Abs Immature Grans 0.04 10^3/uL (0.0-0.06); Absolute Basophil Count 0.03 10^3/uL (0.0-0.2); Absolute Eosinophil Count 0.16 10^3/uL (0.0-0.7); Absolute Lymphocyte Count 2.81 10^3/uL (1.2-3.4); Absolute Monocyte Count 0.76 10^3/uL (0.1-0.8); Absolute Neutrophil Count 6.13 10^3/uL (1.2-6.7); Basophils % 0.3; Eosinophils % 1.6; HCT 46.9 % (36.0-46.0); HGB 15.8 g/dL (11.2-15.7); Immature Grans % 0.4; Lymphocytes % 28.3; MCH 29.4 pg (27.0-33.0); MCHC 33.7 % (32.0-36.0); MCV 87.3 fL (80-95); MPV 9.5 fL (8.0-11.0); Monocytes % 7.7; Neutrophils % 61.7; Nucleated RBC 0 %; Platelet Count 251 10^3/uL (130-400); RBC 5.37 10^6/uL (3.93-5.22); RDW 13.2 % (11.7-14.6); RDW-SD 42.6 fL; WBC 9.93 10^3/uL (4.4-10.8)
[2020-06-04] MEDS: Normal Saline 1,000 ML 1000 ML IV (03:50)
[2020-06-04] MEDS: dilTIAZem 25 MG/5 ML VIAL 20 MG IVP (03:55)
[2020-06-04] MEDS: dilTIAZem 125 MG in Normal Saline 100 ML IV (04:06)
[2020-06-04 04:09] LABS: ALT 33 U/L (14-59); AST 23 U/L (15-37); Albumin 4.1 g/dL (3.4-5.0); Alkaline Phosphatase 74 U/L (46-116); Anion Gap 8.7 mmol/L (3-11); BUN 11 mg/dL (7-18); Bilirubin, Total 0.6 mg/dL (0.2-1.0); CO2 27.3 mmol/L (21.0-32.0); CREATININE 0.83 mg/dL (0.55-1.02); Calcium 8.7 mg/dL (8.5-10.1); Chloride 100 mmol/L (98-107); Glucose 111 mg/dL (74-106); Potassium 3.9 mmol/L (3.5-5.1); Sodium 136 mmol/L (136-145); Troponin I < 0.05 ng/mL (<0.06)
[2020-06-04 04:17] LABS: Magnesium 1.9 mg/dL (1.8-2.4); NT-proBNP 1991 pg/mL (<300); TSH (W/Ref FT4) 1.59 uIU/mL (0.36-3.74)
[2020-06-04 04:18] LABS: PTT Activated 23.4 sec (21.0-27.5); Prothrombin Time 10.3 sec (9.3-11.0)
[2020-06-04] MEDS: Omnipaque 350 MG/ML 100 ML BTL IJ (04:27)
[2020-06-04] MEDS: Normal Saline - Diluent 50 ML VIAL IV (04:27)
[2020-06-04] MEDS: dilTIAZem 25 MG/5 ML VIAL IVP (04:30)
--- NOTE | 2020-06-04 04:30 | RT.EKG_ITS ---
APPROVED REPORT Exam: Resting ECG Patient Location: E HR:81 bpm ECG Measurements Heart Rate 81 AXIS ID [id number] P [id number] QRSd 71 QRS 49 QT 381 T -40 QTc 443 Conclusion Atrial fibrillation...V-rate 63- 96, irreg A-activity
[2020-06-04 04:42] LABS: ETHANOL BLOOD < 3.0 mg/dL (<3)
[2020-06-04] MEDS: Acetaminophen 500 MG TAB 1000 MG PO (04:50)
--- NOTE | 2020-06-04 04:55 | NUR.NOTE ---
Nursing Note: Patient noted to have heart rate decrease to 60s-80s, repeat EKG obtained. Patient reports still has pressure in chest, but palpation/pounding has stopped. Dr Kaminski made aware. Dilt Drip decreased to 5mg/hr at this time, will continue to adjust.
--- NOTE | 2020-06-04 05:40 | NUR.NOTE ---
Nursing Note: Patient sleeping, even respirations. Afib on monitor with a rate in 60s-70s.
--- NOTE | 2020-06-04 05:42 | DI.VRAD_ITS ---
PROCEDURE INFORMATION: Exam: CT Angiography Chest With Contrast Exam date and time: 06/04/2020 3:34 AM Age: 59 years old Clinical indication: Generalized; Patient HX: Upper back pain and abdominal pain; Additional info: ? Dissection TECHNIQUE: Imaging protocol: Computed tomographic angiography of the chest with intravenous contrast. 3D rendering (Not supervised by radiologist): MIP and/or 3D reconstructed images were created by the technologist. COMPARISON: CR PORTABLE CHEST ONE VIEW 02/22/2014 5:08 PM FINDINGS: Pulmonary arteries: There are no filling defects in the pulmonary arteries to suggest pulmonary emboli. Aorta: There is no thoracic aortic aneurysm, dissection or tear. 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 Lungs: There is no evidence of focal pulmonary consolidation or masses. There are mild bibasilar atelectatic changes. Pleural space: There is no pneumothorax. No pleural effusion is identified. Heart: The heart is normal in size. There are no pericardial fluid collections. Lymph nodes: No enlarged mediastinal or hilar lymph nodes are seen. Bones/joints: There is mild degenerative disc disease and anterior osteophytes of the thoracic spine. Soft tissues: There are no paraspinal fluid collections. IMPRESSION: 1. No evidence of thoracic aortic aneurysm, dissection or tear. 2. No evidence of pulmonary embolus. 3. No acute pulmonary findings. 4. Mild degenerative disc disease and anterior osteophytes of the thoracic spine. PROCEDURE INFORMATION: Exam: CT Angiography Abdomen and Pelvis With Contrast Exam date and time: 06/04/2020 3:34 AM Age: 59 years old Clinical indication: Generalized; Patient HX: Upper back pain and abdominal pain; Additional info: ? Dissection TECHNIQUE: Imaging protocol: Computed tomographic angiography of the abdomen and pelvis with intravenous contrast material. 3D rendering (Not supervised by radiologist): MIP and/or 3D reconstructed images were created by the technologist. COMPARISON: CR PORTABLE CHEST ONE VIEW 02/22/2014 5:08 PM FINDINGS: Lungs: There are mild atelectatic changes at the lung bases. Aorta: The abdominal aorta appears normal, without aneurysm or dissection. Celiac trunk and mesenteric arteries: The celiac trunk and superior mesenteric arteries are widely patent. There is a mild stenosis at the origin of the DANILO. Renal arteries: No occlusion or significant stenosis. Right iliac arteries: No occlusion or significant stenosis. Left iliac arteries: No occlusion or significant stenosis. Liver: Normal in size. There are no enhancing liver masses. Gallbladder and bile ducts: No calcified gallstones. There is no ductal dilatation. Pancreas: No pancreatic mass is seen. There is no ductal dilatatioin. Spleen: Normal in size. Adrenals: No adrenal masses. Kidneys and ureters: There are no enhancing renal masses. No hydronephrosis or obstructing calculi. Stomach and bowel: No evidence of small bowel or colonic obstruction. Appendix: No evidence of appendicitis. Intraperitoneal space: There is no free intraperitoneal air. No ascites. No fluid collection is seen. Lymph nodes: No enlarged retroperitoneal or mesenteric lymph nodes. Urinary bladder: The bladder shows a normal contour. Reproductive: Unremarkable as visualized. Bones/joints: At L4-L5 there is mild bulging disc and bilateral facet arthrosis. At L5-S1 there are degenerative disc disease with vacuum disc, facet arthrosis and posterior osteophytes with resultant moderate bilateral neural foraminal narrowing. Soft tissues: Unremarkable. IMPRESSION: 1. No evidence of abdominal aortic aneurysm or dissection. 2. Mild stenosis at the origin of the DANILO with widely patent SMA and celiac trunk. 3. Discogenic disease, facet arthrosis and osteophytes at L4-L5 and L5-S1 with moderate bilateral neural foraminal narrowing at L5-S1. Dictated and Authenticated by: Edwin Nicholas MD. Ordering:SHAMIR Cuevas MD
[2020-06-04 05:49] LABS: Bilirubin Negative (Negative); Blood Negative (Negative); Clarity Clear (Clear); Glucose Negative (Negative); Ketones Negative (Negative); Leukocyte Esterase Negative (Negative); Nitrite Negative (Negative); Specific Gravity 1.015 (1.005-1.025); Urobilinogen 0.2 EU/dL (Up TO 0.2); pH 7.5 (5-8)
--- NOTE | 2020-06-04 06:50 | NUR.NOTE ---
patient placed on care managers follow up referral sheet for follow up with cardiology at [facility] [place]
--- NOTE | 2020-06-05 18:16 | CMPROGNOTE_ITS ---
- If Service Date Differs Date of service: 06/05/20 Time of Service: 18:16 Care Management Progress Note CM received a referral to send a referral to [facility] for follow up from ED visit. CM faxed discharge summary, demos and other available reports to [facility], on 06/05/20.
--- NOTE | 2020-06-05 18:16 | PDOC.ERCMPRO ---
- If Service Date Differs Date of service: 06/05/20 Time of Service: 18:16 Care Management Progress Note CM received a referral to send a referral [place] [facility] [place] from ED visit. CM faxed discharge summary, demos and other available reports to [facility], on 06/05/20.
== END 2020-06-04 06:39 | disposition home or self-care (01) ==
LOC: ER 06:05
PROVIDERS: Emergency Provider Emergency Medicine; PCP Nurse Practitioner Family
DX: I48.91 Unspecified atrial fibrillation (principal); I47.2 Ventricular tachycardia; M54.6 Pain in thoracic spine; Z79.01 Long term (current) use of anticoagulants; I10 Essential (primary) hypertension
CPT/HCPCS: 36415; 74177; 80053; 93005; 96361; 96365; 96375; 96376; 99291; 80320; 81003; 83735; 83880; 84443; 84484; 85025; 85610; 85730; 93010; J3490

== ENCOUNTER 2020-06-06 11:00 | Outpatient (CLI) | payer BC, SELFPAY ==
[2020-06-06 11:10] VITALS: BP 142/82; PULSE 64; RESP 17; TEMP 36.7; O2SAT 97
--- NOTE | 2020-06-06 11:45 | DI.RAD_ITS ---
EXAM: XR PAIN CLINIC SACRIOILIAC 2V CLINICAL HISTORY: Dx: Sacroiliac Joint Dysfunction TECHNIQUE: 2D and realtime digital imaging was performed. CONTRAST MATERIAL: Refer to procedure report. COMPARISON: No exams were available for comparison FINDINGS: Fluoroscopy was provided for Dr. Santana during the performance of a bilateral sacroiliac joint injecti on. Please refer to the procedure report for complete details. Fluoro time: 26.5 seconds IMPRESSION:
[2020-06-06 11:52] VITALS: BP 140/78; PULSE 63; RESP 16; O2SAT 100
[2020-06-06] MEDS: Omnipaque 240 MG/ML 50 ML BTL IJ (12:08)
[2020-06-06] MEDS: methylPREDNISolone ACETATE 80 MG/ML VIAL IJ (12:08)
[2020-06-06] MEDS: Lidocaine 1% Pres-Free 5 ML VIAL (12:09)
--- NOTE | 2020-06-06 12:16 | PDOC.PAIN_ITS ---
Pain Clinic Procedure Note Procedure Note Procedure Note: INTRA-ARTICULAR SI JOINT INJECTION ROGELIO QUEZADA has been referred to the [facility] Management [facility] for intra- articular SI joint injection. COMMENTS: She is on Xarelto and was allowed to briefly come off of this by her strike warfare/missile systems officer. She had left SIJ area pain and this has now moved to the right SIJ area as well. I did review Ms. Flores's note from our clinic on 03/14/20 and reviewed her 01/26/2020 lumbar spine MRI. Ms. Flores was contacted on 05/02/20 and approved a bilateral SIJ injection after the patient had a left sided SIJ injection with Dr. Velez on 04/11/20. DX: Sacroiliac joint dysfunction Patient was interviewed and the medical record reviewed. There were no medical, pharmacologic, radiographic or other structural contraindications to attempting fluoroscopically guided intra-articular SI joint injection. Risks and expected side effects as well as potential benefit of the procedure were reviewed and voiced concerns addressed. The printed consent form was signed and witnessed. Standard time-out procedure was performed. Patient was placed in the prone position on the fluoroscopy table and automated blood pressure cuff and pulse oximeter applied. The skin entry point for approaching bilateral SI joints was identified under the most advantageous fluoroscopic view and marked. Following thorough Chlorhexadine preparation of the skin and draping and 1% lidocaine infiltration of the skin entry point and subcutaneous tissues, a 22 gauge spinal needle was placed under fluoroscopic guidance into bilateral SI joints Intra-articular placement was confirmed by a clear arthrogram resulting from the injection of 0.25ml Omnipaque 240, 1ml 1% lidocaine, and 40mg Depomedrol were injected intra-articularily into each joint with an initial reproduction of a significant component of the usual pain. Vital signs were stable throughout the procedure and were as recorded in the docflowsheet by the nursing staff. If given, dosages of intravenous drugs for anxiolysis and analgesia were documented in MAR. Follow up plans and appointments were discussed with the patient. Post procedure instruction was given as documented in nursing documentation and having met discharge criteria, and was discharged from the Pain Management Center. COMMENTS: If this procedure is found to be helpful, it can be completed up to 3 times every 12 months. Juan Santana DO, MPH Pain Management CC: Joan Saez
== END 2020-06-06 11:20 ==
PROVIDERS: PCP Nurse Practitioner Family; Visit Provider Preventive Medicine Occupational Medicine
DX: M54.5 Low back pain (principal); M53.3 Sacrococcygeal disorders, not elsewhere classified
CPT/HCPCS: 27096; 72200; J1040; Q9967

== ENCOUNTER 2020-08-08 12:56 | Outpatient (REF) | payer BC, SELFPAY ==
[2020-08-08 22:00] LABS: Hemoglobin A1C 5.6 % (<5.7)
== END 2020-08-08 12:57 | disposition home or self-care (01) ==
LOC: NCHCN 12:56
PROVIDERS: PCP Nurse Practitioner Family; Visit Provider Nurse Practitioner Family
DX: I10 Essential (primary) hypertension (principal); F41.9 Anxiety disorder, unspecified; G43.909 Migraine, unspecified, not intractable, without status migrainosus; K21.9 Gastro-esophageal reflux disease without esophagitis; R13.10 Dysphagia, unspecified; E66.9 Obesity, unspecified
CPT/HCPCS: 83036

== ENCOUNTER 2020-11-05 22:41 | Emergency (ER) | payer BC, SELFPAY ==
[2020-11-05] VITALS (14 sets, daily range): BP systolic 105–144; BP diastolic 77–96; PULSE 75–165; RESP 14–30; TEMP 35.9; O2SAT 97–98
--- NOTE | 2020-11-05 22:45 | DI.RAD_ITS ---
Exam(s) XR PORTABLE CHEST AP EXAM: XR PORTABLE CHEST AP CLINICAL HISTORY: papitations. TECHNIQUE: 2D digital imaging was performed. COMPARISON: No exams were available for comparison FINDINGS: Heart size is normal. The mediastinum is not widened. Lungs are clear. No infiltrates nor obvious pleural effusions. Chest leads in place IMPRESSION: No acute pulmonary findings on this single AP portable view of the chest. DATA REPOSITORY: RADIATION DOSE DELIVERED: All CT scans at this facility use at least one of these dose optimization techniques: automated exposure control; mA and/or kV adjustment per patient size (includes targeted e xams where dose is matched to clinical indication); or iterative reconstruction.
--- NOTE | 2020-11-05 22:45 | RT.EKG_ITS ---
APPROVED REPORT Exam: Resting ECG Reason for Exam: CP Patient Location: E HR:161 bpm ECG Measurements Heart Rate 161 AXIS HI 119 P 116 QRSd 69 QRS 56 QT 289 T -31 QTc 474 Conclusion Supraventricular tachycardia...V-rate>(220-age), QRSd<120 suspect aflutter with 2:1 conudction, no significant st elevation or depression
--- NOTE | 2020-11-05 23:00 | RT.EKG_ITS ---
APPROVED REPORT Exam: Resting ECG Reason for Exam: PALPATATIONS Patient Location: E HR:67 bpm ECG Measurements Heart Rate 67 AXIS ND [id number] P [id number] QRSd 69 QRS 52 QT 375 T 78 QTc 396 Conclusion Atrial fibrillation...V-rate 59- 63, irreg A-activity
[2020-11-05] MEDS: dilTIAZem 25 MG/5 ML VIAL 20 MG IVP (23:01)
[2020-11-05 23:08] LABS: Abs Immature Grans 0.04 10^3/uL (0.0-0.06); Absolute Basophil Count 0.04 10^3/uL (0.0-0.2); Absolute Eosinophil Count 0.22 10^3/uL (0.0-0.7); Absolute Lymphocyte Count 3.76 10^3/uL (1.2-3.4); Absolute Monocyte Count 0.73 10^3/uL (0.1-0.8); Absolute Neutrophil Count 4.91 10^3/uL (1.2-6.7); Basophils % 0.4; Eosinophils % 2.3; HCT 44.2 % (36.0-46.0); HGB 15.2 g/dL (11.2-15.7); Immature Grans % 0.4; Lymphocytes % 38.8; MCH 30.2 pg (27.0-33.0); MCHC 34.4 % (32.0-36.0); MCV 87.9 fL (80-95); MPV 9.5 fL (8.0-11.0); Monocytes % 7.5; Neutrophils % 50.6; Nucleated RBC 0 %; Platelet Count 279 10^3/uL (130-400); RBC 5.03 10^6/uL (3.93-5.22); RDW 13.3 % (11.7-14.6); RDW-SD 43.2 fL
--- NOTE | 2020-11-05 23:08 | W.ED.GENAD ---
Discharge Plan Disposition Patient Disposition: HOME Condition: Stable Discharge Details Clinical Impression: UTI (urinary tract infection), Atrial fibrillation with RVR Primary Care Provider: Joan Saez ED Provider: Mason Kaminski Home Meds and New Rx's Prescriptions: New nitrofurantoin monohyd/m-cryst [Macrobid] 100 mg capsule 100 mg PO Q12H 5 Days Qty: 10 RF: 0 Continued spironolactone 50 mg tablet 50 mg PO DAILY RF: 0 bisacodyl [Dulcolax (bisacodyl)] 5 mg tablet,delayed release (DR/EC) 5 mg PO TID RF: 0 potassium chloride 20 mEq tablet extended release 20 meq PO BID RF: 0 acetaminophen [Tylenol Extra Strength] 500 mg tablet 500 mg PO DAILY RF: 0 fluticasone propionate [Flonase Allergy Relief] 50 mcg/actuation Samson,Suspension 1 spray INTRANASAL BID RF: 0 vitamin E 400 unit Capsule 400 unit PO DAILY RF: 0 ascorbic acid (vitamin C) [Vitamin C] 500 mg Tablet 500 mg PO BID RF: 0 gabapentin 300 mg Capsule 300 mg PO TID RF: 0 hydroxyzine HCl 25 mg Tablet 25 mg PO TID PRNRF: 0 loratadine 10 mg tablet 10 mg PO DAILY RF: 0 magnesium oxide 400 mg magnesium tablet 400 mg PO TID RF: 0 diclofenac sodium 1 % gel 4 g topical QID PRN (Reason: joint pain) 6 Days Qty: 100 RF: 11 atorvastatin [Lipitor] 10 MG tablet 10 mg PO HS RF: 0 omeprazole [Prilosec] 40 MG capsule,delayed release(DR/EC) 40 mg PO DAILY RF: 0 losartan 100 MG tablet 100 mg PO DAILY RF: 0 cholecalciferol (vitamin D3) [Vitamin D3] 2,000 UNIT capsule 1,000 units PO DAILY RF: 0 levalbuterol tartrate [Xopenex HFA] 15 GM HFA aerosol inhaler 2 puff Inhalation Q6H PRNRF: 0 Xarelto 20 MG tablet 20 mg PO DAILY RF: 0 diltiazem HCl 30 mg tablet 120 mg PO PRN PRN (Reason: afib) RF: 0 meclizine 25 mg tablet 25 mg PO TID PRN (Reason: dizziness) Qty: 10 RF: 0 Discharge Instructions Instructions: A-fib (Atrial Fibrillation) (ED) Additional Instructions: follow up with Dr. Bunn as soon as possible you can take up to 3 doses of your 120mg diltiazem a day if you have worsening symptoms, feel pain or pressure in the chest or difficulty breathing return to the emergency department for reevaluation Medical Decision Making 60 yo female with hx of afib/aflutter on xarleto who comes in stating she has felt herself in afib since last night. She noticed it beating irregularly and today noticed it intermittently beating fast and irregular and couldn't sleep tonight so came here. Denies any pain or pressure in the chest or dyspnea, no fevers, did have nausea but no vomit earlier. She is noted to have a HR consistently of 160 on the monitor here and on ekg suspect aflutter with 2:1 conduction, stable BP. Will give IV dilt and obtain labs including troponin, electrolyte and cbc. NO evidence of dvt on exam and no hypoxia so doubt PE and symptoms are consistent with her rapid heart rate due to aflutter. Patient momentarily went down to the 80's for a heart rate for a few minutes but then went back to 150's/160's heart rate, will give another dose of bolus dilt and start an infusion of dilt as well before infusion started her heart rates were in the 80's so was not started. She feels better, initial labs unremarkable, will continue to monitor pt remains stable with rates in the 90's, nurse collected urine because patient states she has had some dysuria and frequency, and appears she may have a uti. no findings to suggest pyelo or sepsis, no cva tenderness. will start macrobid pt second troponin negative and she remains with heart rates in the 90's. 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 She understands to return for any worsening symptoms or if she develops dyspnea or pain Differential Diagnosis Differential Diagnosis: aflutter, afib, svt Medical Records Medical records reviewed: Yes I reviewed the patient's medical records. Imaging Data Radiologic Study: Attestation: I personally reviewed and interpreted this imaging study as follows: Imaging: X-Ray Radiologist's impression: no acute findings Lab Data Lab results reviewed: Yes I reviewed the patient's lab results. ECG Data Attestation: I personally reviewed and interpreted this ECG (s) as follows: Prior ECG tracings: available for review Interpretation: suspect flutter with 2:1 conduction,rate of 160, no acute st t wave ischemic findings 2nd ekg afib with rate of 67, no acute st t wave ischemic findings HPI General Mode of arrival: ambulatory. Date/Time Provider Initiated Documentation: 11/05/20 22:47. Limitations to Documentation: no limitations. Information obtained by: patient. History of Present Illness 60 year old F presents to the emergency department with the chief complaint of heart racing, described as moderate, and it has been constant. No relieving factors improve symptom(s), No exacerbating factors reported . Patient notes no other symptoms.. Patient did receive the following treatments prior to arrival, other (took oral diltiazem earlier) Related Data Home Medications Medication Instructions Recorded Confirmed atorvastatin [Lipitor] 10 mg PO HS 03/19/13 11/05/20 cholecalciferol (vitamin D3) 1,000 units PO DAILY 03/19/13 11/05/20 [Vitamin D3] losartan 100 mg PO DAILY 03/19/13 11/05/20 omeprazole [Prilosec] 40 mg PO DAILY 03/19/13 11/05/20 Xarelto 20 mg PO DAILY 01/27/16 11/05/20 levalbuterol tartrate [Xopenex HFA] 2 puff INHALATION Q6H PRN 01/27/16 11/05/20 acetaminophen 500 mg tablet 500 mg PO DAILY tab 03/10/18 11/05/20 bisacodyl 5 mg tablet,delayed 5 mg PO TID tab 03/10/18 11/05/20 release potassium chloride 20 mEq 20 meq PO BID 03/10/18 11/05/20 tablet,extended release spironolactone 50 mg tablet 50 mg PO DAILY 03/10/18 11/05/20 fluticasone propionate [Flonase 1 spray INTRANASAL BID 04/28/19 11/05/20 Allergy Relief] vitamin E 400 unit PO DAILY 04/28/19 11/05/20 loratadine 10 mg tablet 10 mg PO DAILY 07/06/19 11/05/20 magnesium oxide 400 mg PO TID tab 07/06/19 11/05/20 ascorbic acid (vitamin C) [Vitamin 500 mg PO BID 03/08/20 11/05/20 C] gabapentin 300 mg PO TID 03/08/20 11/05/20 hydroxyzine HCl 25 mg PO TID PRN 03/08/20 11/05/20 diclofenac sodium 1 % topical gel 4 g TOPICAL QID PRN 6 Days #100 g 05/24/20 11/05/20 meclizine 25 mg PO TID PRN #10 tab 05/31/20 11/05/20 diltiazem HCl 120 mg PO PRN PRN 06/04/20 11/05/20 nitrofurantoin monohyd/m-cryst 100 mg PO Q12H 5 Days #10 cap 11/06/20 [Macrobid] Previous Rx's Medication Instructions Recorded diclofenac sodium 1 % topical gel 4 g TOPICAL QID PRN 6 Days #100 g 05/24/20 meclizine 25 mg PO TID PRN #10 tab 05/31/20 nitrofurantoin monohyd/m-cryst 100 mg PO Q12H 5 Days #10 cap 11/06/20 [Macrobid] Allergies Allergy/AdvReac Type Severity Reaction Status Date / Time lisinopril Allergy Other (See Unverified 11/05/20 22:56 Comment) sulfamethoxazole Allergy Hives Unverified 11/05/20 22:56 [From Bactrim] trimethoprim [From Bactrim] Allergy Hives Unverified 11/05/20 22:56 venom-honey bee Allergy Unverified 11/05/20 22:56 metoprolol AdvReac Mild Cardiac Unverified 11/05/20 22:56 Dysrythmia General Stated Complaint: Palpitatns MARION: 2 Review of Systems All systems reviewed & are unremarkable except as noted in HPI and below Constitutional Constitutional: Denies chills, Denies fever(s) and Denies weakness Cardiovascular Cardiovascular: Denies dyspnea Respiratory Respiratory: Denies cough and Denies dyspnea Gastrointestinal Gastrointestinal: Denies abdominal pain, Denies nausea and Denies vomiting Musculoskeletal Musculoskeletal: Denies joint swelling Integumentary/Breasts Skin/Breast: Denies rash Neurologic Neurologic: Denies weakness [facility] Medical History Abdominal pain, epigastric Anxiety Aphasia Atrial fibrillation Chronic back pain Chronic cough Dysphagia GERD (gastroesophageal reflux disease) Grief reaction H/O measles Heel spur Hiatal hernia HTN (hypertension) Hyperlipidemia IBS (irritable bowel syndrome) Lactose intolerance Menopausal syndrome (hot flashes) Migraine headache with aura Migraine headache without aura Obesity Paresthesia Preventative health care Screening mammogram, encounter for Seasonal allergies Skin lesion of face Solar lentigo Tension headache Surgical History Achilles tendon tear both repaired here. Colonoscopy - MAC (06/20/17) H/O cardiac radiofrequency ablation H/O esophagogastroduodenoscopy Social History Smoking/Tobacco Use Status: Never Smoking risk assessment performed?: Yes Alcohol Intake: current Alcohol Intake frequency: a few times a week Drug use: Never Substance use type: does not use Household members: spouse Housing: house Number of Children: 2 current occupation: Retired teacher What is your relationship status?: Panel score (0-1 are the most socially isolated patients): 1 What type of physical activity do you participate in: walking, independent ambulation and additional Details: barn chores and stretches with kids at school Frequency: daily Do you feel safe at home: Yes Do you feel safe in your relationship?: Yes Exam Const General: no acute distress Orientation: alert HENMT Head: normal to inspection Ears: external ears normal General nose exam: external nose normal Mouth: moist mucous membranes Eyes General: appearance normal, both eyes and all related structures Neck Neck: normal visual inspection Resp Effort & Inspection: normal respiratory effort and able to speak in complete sentences Cardio Rate: tachycardic Skin General skin exam: no rashes or lesions noted Neuro General: patient alert and patient oriented x3 Extrem General: normal to inspection Psych Mental Status: mental status grossly normal Course Vital Signs Vital signs: Vital Signs Temperature 35.9 C L 11/05/20 22:52 Pulse 165 H 11/05/20 22:52 Respiratory Rate 18 11/05/20 22:52 Blood Pressure 144/94 H 11/05/20 22:52 Pulse Oximetry 98 11/05/20 22:52 Temperature 35.9 C L 11/05/20 22:52 Temperature Source Skin 11/05/20 22:52 Pulse 162 H 11/05/20 23:01 Respiratory Rate 18 11/05/20 22:52 Blood Pressure 144/94 H 11/05/20 22:52 Pulse Oximetry 98 11/05/20 22:52 Pain Level 2 11/05/20 22:52 Critical Care Time Critical Care Time Critical Care Time: Yes Total Critical Care Time: 90 (minutes) Attestation: time spent administering IV vinod blockers, frequent reassessment and monitoring for patient with afib with rvr and potential to deteriorate at any time
[2020-11-05] MEDS: dilTIAZem 25 MG/5 ML VIAL IVP (23:11)
[2020-11-05 23:26] LABS: PTT Activated 28.8 sec (21.0-27.5); Prothrombin Time 10.3 sec (9.3-11.0)
[2020-11-05 23:30] LABS: ALT 32 U/L (14-59); AST 21 U/L (15-37); Alkaline Phosphatase 91 U/L (46-116); Anion Gap 9.6 mmol/L (3-11); BUN 15 mg/dL (7-18); Bilirubin, Total 0.5 mg/dL (0.2-1.0); CO2 25.4 mmol/L (21.0-32.0); CREATININE 0.8 mg/dL (0.55-1.02); Calcium 8.4 mg/dL (8.5-10.1); Chloride 102 mmol/L (98-107); Glucose 116 mg/dL (74-106); Magnesium 1.9 mg/dL (1.8-2.4); Sodium 137 mmol/L (136-145); Total Protein 7.3 g/dL (6.4-8.2); Troponin I < 0.05 ng/mL (<0.06)
[2020-11-05] MEDS: dilTIAZem CD 120 MG CAPCR PO (23:35)
--- NOTE | 2020-11-05 23:39 | DI.VRAD_ITS ---
PROCEDURE INFORMATION: Exam: XR Chest Exam date and time: 11/05/2020 10:56 PM Age: 60 years old Clinical indication: Pain; Other: Palpatations TECHNIQUE: Imaging protocol: XR of the chest. Views: 1 view. COMPARISON: CT THORAX ABD/PEL CTA 06/04/2020 3:54 AM FINDINGS: Lungs: Unremarkable. No consolidation. Pleural spaces: Unremarkable. No pleural effusion. No pneumothorax. Heart/Mediastinum: Unremarkable. No cardiomegaly. Bones/joints: Unremarkable. IMPRESSION: No acute findings. Dictated and Authenticated by: Carlos Kolb MD. Ordering:SHAMIR Cuevas MD
[2020-11-06] VITALS (24 sets, daily range): BP systolic 102–156; BP diastolic 55–103; PULSE 58–110; RESP 11–25; O2SAT 85–99
[2020-11-06 00:35] LABS: Bilirubin Negative (Negative); Blood Negative (Negative); Clarity Clear (Clear); Glucose Negative (Negative); Ketones Negative (Negative); Leukocyte Esterase Trace (Negative); Nitrite Negative (Negative); Urobilinogen 0.2 EU/dL (Up TO 0.2)
[2020-11-06 00:51] LABS: Bacteria Few HPF (Negative); C & S Indicated? Yes; Casts Negative LPF (Negative); Crystals Negative HPF (Negative); Epithelial Cells Rare HPF (Negative); Mucus Negative (Negative); RBC 0-2 HPF (0-2)
[2020-11-06] MEDS: MacroBID 100 MG CAP PO (01:18)
[2020-11-06 02:08] LABS: Troponin I < 0.05 ng/mL (<0.06)
== END 2020-11-06 02:30 | disposition home or self-care (01) ==
PROVIDERS: Emergency Provider Emergency Medicine; PCP Nurse Practitioner Family
DX: R00.2 Palpitations (principal); I48.91 Unspecified atrial fibrillation; I47.2 Ventricular tachycardia; N39.0 Urinary tract infection, site not specified
CPT/HCPCS: 36415; 80053; 93005; 96374; 99285; 71045; 81003; 81015; 83735; 84443; 84484; 85025; 85610; 85730; 87086; 93010; 99284

== ENCOUNTER 2020-11-27 14:56 | Outpatient (RCR) | payer BC, SELFPAY ==
--- NOTE | 2020-11-27 15:45 | HOLTER_ITS ---
APPROVED REPORT Conclusion This is a 48-hour monitor ordered for indication of paroxysmal atrial fibrillation. ???Patient was in normal sinus rhythm for the majority of the recording with an average heart rate of 70 bpm. ???There was one episode of NSVT which lasted a total of 6 beats. There were rare PVCs as well as co uplets. ???There were 4 episodes of supraventricular tachycardia with the longest lasting 7 beats. There wer e rare PACs. ???There was one episode of atrial fibrillation with RVR which lasted a total of 22 seconds. ???There were no pauses greater than 3 seconds and no evidence of high degree heart block. ???There were 9 patient triggered events some of which were associated with PACs as well as PVCs. Th e patient was also symptomatic during the one episode of atrial fibrillation.
== END 2020-12-20 23:59 | disposition home or self-care (01) ==
LOC: RT 14:56
PROVIDERS: PCP Nurse Practitioner Family; Visit Provider Internal Medicine Cardiovascular Disease
DX: I48.0 Paroxysmal atrial fibrillation (principal)
CPT/HCPCS: 93225; 93226

== ENCOUNTER 2021-04-12 14:19 | Outpatient (REF) | payer BC, SELFPAY ==
[2021-04-12 23:38] LABS: ALT 41 U/L (14-59); AST 25 U/L (15-37); Albumin 4.5 g/dL (3.4-5.0); Alkaline Phosphatase 73 U/L (46-116); Anion Gap 10.3 mmol/L (3-11); BUN 10 mg/dL (7-18); Bilirubin, Total 0.7 mg/dL (0.2-1.0); CO2 27.7 mmol/L (21.0-32.0); CREATININE 0.7 mg/dL (0.55-1.02); Chloride 97 mmol/L (98-107); Glucose 95 mg/dL (74-106); Magnesium 1.9 mg/dL (1.8-2.4); Potassium 4.3 mmol/L (3.5-5.1); Sodium 135 mmol/L (136-145); Total Protein 7.5 g/dL (6.4-8.2); Vitamin B12 535 pg/mL (193-986)
== END 2021-04-12 14:20 | disposition home or self-care (01) ==
LOC: NCHCN 14:19
PROVIDERS: PCP Nurse Practitioner Family; Visit Provider Nurse Practitioner Family
DX: I10 Essential (primary) hypertension (principal); E78.5 Hyperlipidemia, unspecified; I48.91 Unspecified atrial fibrillation; G43.909 Migraine, unspecified, not intractable, without status migrainosus; R13.10 Dysphagia, unspecified; M25.59 Pain in other specified joint; F41.9 Anxiety disorder, unspecified
CPT/HCPCS: 80053; 82607; 83735

== ENCOUNTER 2021-05-30 01:56 | Outpatient (CLI) | payer BC, SELFPAY ==
[2021-05-30 12:22] LABS: Source Nasal/Nares
[2021-05-30 14:06] LABS: COVID-19 PCR Negative (Negative)
== END 2021-05-30 01:57 | disposition home or self-care (01) ==
LOC: LBO 01:56
PROVIDERS: PCP Nurse Practitioner Family; Visit Provider Podiatrist
DX: Z20.822 Contact with and (suspected) exposure to COVID-19 (principal)
CPT/HCPCS: 87635

== ENCOUNTER 2021-06-01 06:08 | Day surgery (SDC) | payer BC, SELFPAY ==
--- NOTE | 2021-05-31 19:45 | W.PM.HP.N ---
Date of service: 06/01/21 Time of Service: 19:46 History of Present Illness History of Present Illness Chief Complaint: chronic right achilles tendonosis with exostosis Narrative: 60YO female with chronic pain associated with achilles tendonosis and retro calcaneal exostosis, enthesopathy that has not responded to non operative treatment. She is seeking a surgical solution for this problem. PFSH All Active Problems UTI (urinary tract infection) (Acute) Atrial fibrillation with RVR (Acute) Migraine headache without aura (Acute) Migraine headache with aura (Acute) Lesion of lip (Acute) Arthralgia (Acute) Chronic back pain (Chronic) Chronic headaches (Chronic) Atrial fibrillation (Chronic) Medical History Abdominal pain, epigastric Anxiety Aphasia Chronic cough Dysphagia GERD (gastroesophageal reflux disease) Grief reaction H/O measles Heel spur Hyperlipidemia Lactose intolerance Menopausal syndrome (hot flashes) Paresthesia Preventative health care Screening mammogram, encounter for Seasonal allergies Skin lesion of face Solar lentigo Tension headache Surgical History Achilles tendon tear both repaired here. H/O cardiac radiofrequency ablation H/O esophagogastroduodenoscopy Social History Smoking/Tobacco Use Status: Never Smoking risk assessment performed?: Yes Alcohol Intake: current Alcohol Intake frequency: a few times a week Drug use: Never Substance use type: does not use Household members: spouse Housing: house Number of Children: 2 current occupation: Retired teacher What is your relationship status?: Panel score (0-1 are the most socially isolated patients): 1 What type of physical activity do you participate in: walking, independent ambulation and additional Details: barn chores and stretches with kids at school Frequency: daily Do you feel safe at home: Yes Do you feel safe in your relationship?: Yes Meds Allergies and Home Medications Allergies Allergy/AdvReac Type Severity Reaction Status Date / Time lisinopril Allergy Other (See Unverified 11/05/20 22:56 Comment) sulfamethoxazole Allergy Hives Unverified 11/05/20 22:56 [From Bactrim] trimethoprim [From Bactrim] Allergy Hives Unverified 11/05/20 22:56 venom-honey bee Allergy Unverified 11/05/20 22:56 metoprolol AdvReac Mild Cardiac Unverified 11/05/20 22:56 Dysrythmia Home Medications Medication Instructions Recorded Confirmed Type atorvastatin [Lipitor] 10 mg PO HS 03/19/13 11/05/20 History cholecalciferol (vitamin D3) 1,000 units PO DAILY 03/19/13 11/05/20 History [Vitamin D3] losartan 100 mg PO DAILY 03/19/13 11/05/20 History omeprazole [Prilosec] 40 mg PO DAILY 03/19/13 11/05/20 History Xarelto 20 mg PO DAILY 01/27/16 11/05/20 History levalbuterol tartrate [Xopenex HFA] 2 puff INHALATION Q6H PRN 01/27/16 11/05/20 History acetaminophen 500 mg tablet 500 mg PO DAILY tab 03/10/18 11/05/20 History bisacodyl 5 mg tablet,delayed 5 mg PO TID tab 03/10/18 11/05/20 History release potassium chloride 20 mEq 20 meq PO BID 03/10/18 11/05/20 History tablet,extended release spironolactone 50 mg tablet 50 mg PO DAILY 03/10/18 11/05/20 History fluticasone propionate [Flonase 1 spray INTRANASAL BID 04/28/19 11/05/20 History Allergy Relief] vitamin E 400 unit PO DAILY 04/28/19 11/05/20 History loratadine 10 mg tablet 10 mg PO DAILY 07/06/19 11/05/20 History magnesium oxide 400 mg PO TID tab 07/06/19 11/05/20 History ascorbic acid (vitamin C) [Vitamin 500 mg PO BID 03/08/20 11/05/20 History C] gabapentin 300 mg PO TID 03/08/20 11/05/20 History hydroxyzine HCl 25 mg PO TID PRN 03/08/20 11/05/20 History diclofenac sodium 1 % topical gel 4 g TOPICAL QID PRN 6 Days #100 g 05/24/20 11/05/20 Rx meclizine 25 mg PO TID PRN #10 tab 05/31/20 11/05/20 Rx diltiazem HCl 120 mg PO PRN PRN 06/04/20 11/05/20 History Exam Narrative Exam Narrative: 60 YO female in NAD Heads normocephalic Eyes PERLLA Hearing adequate Uvula is midline Lung will are clear Heart RRR, I detected no abnormal sounds on auscultation Abdomen is soft, BS x 4 Pain is elicited with gentle palpation of the right achilles tendon at the level of insertion. Exostosis formations are easily palpable. Good power, tendon excusion good. No rents palpable. Impression: Achilles tendonosis with retrocalcaneal spurs Plan: Yen is being brought to the OR for resection of the calcaneal spurs and debridement of the achilles tendon. Yen understands risk and complications such as post op pain, scarring, infection, wound dehiscence, nerve damage, tenon rupture, calcaneal fracture and the need to revise the surgery. All questions were answered in detail, no promises made as to the outcome of surgery. Informed consent obtained.
[2021-06-01 06:23] VITALS: BP 124/72; PULSE 63; RESP 16; TEMP 36.4; O2SAT 97
[2021-06-01] MEDS: Lactated Ringers 1,000 ML 80 ML IV (06:59)
--- NOTE | 2021-06-01 07:01 | W.ANESPRE ---
General Info Date of Service Date Performed: 06/01/21 Height: 5 ft 5 in Weight: 96.3 kg Body Mass Index (BMI): 35.3 Surgical Procedure: Operation Date: 06/01/21 07:40 Proposed Procedures Side Surgeon p Debridement Right Yomi May DPM Meds Allergies and Home Medications Allergies Allergy/AdvReac Type Severity Reaction Status Date / Time lisinopril Allergy Other (See Unverified 06/01/21 06:30 Comment) sulfamethoxazole Allergy Hives Unverified 06/01/21 06:30 [From Bactrim] trimethoprim [From Bactrim] Allergy Hives Unverified 06/01/21 06:30 venom-honey bee Allergy Unverified 06/01/21 06:30 metoprolol AdvReac Mild Cardiac Unverified 06/01/21 06:30 Dysrythmia Home Medication Medication Instructions Recorded atorvastatin [Lipitor] 10 mg PO HS 03/19/13 cholecalciferol (vitamin D3) 1,000 units PO DAILY 03/19/13 [Vitamin D3] losartan 100 mg PO DAILY 03/19/13 Xarelto 20 mg PO DAILY 01/27/16 levalbuterol tartrate [Xopenex HFA] 2 puff INHALATION Q6H PRN 01/27/16 acetaminophen 500 mg tablet 500 mg PO DAILY tab 03/10/18 bisacodyl 5 mg tablet,delayed 5 mg PO TID tab 03/10/18 release potassium chloride 20 mEq 20 meq PO BID 03/10/18 tablet,extended release spironolactone 50 mg tablet 50 mg PO DAILY 03/10/18 fluticasone propionate [Flonase 1 spray INTRANASAL BID 04/28/19 Allergy Relief] loratadine 10 mg tablet 10 mg PO DAILY 07/06/19 magnesium oxide 400 mg PO TID tab 07/06/19 ascorbic acid (vitamin C) [Vitamin 500 mg PO BID 03/08/20 C] gabapentin 300 mg PO TID 03/08/20 hydroxyzine HCl 25 mg PO TID PRN 03/08/20 diclofenac sodium 1 % topical gel 4 g TOPICAL QID PRN 6 Days #100 g 05/24/20 diltiazem HCl 120 mg PO PRN PRN 06/04/20 esomeprazole magnesium [Nexium] 40 mg PO DAILY 06/01/21 hydrochlorothiazide 6.25 mg PO DAILY 06/01/21 Current Visit Medications: Current Medications Generic Name Dose Route Start Last Admin Trade Name Freq PRN Reason Stop Dose Admin Ringer's Solution 1,000 mls @ 80 mls/hr 06/01/21 06:00 06/01/21 06:59 IV 06/30/21 23:59 80 mls/hr INFUSION CAROL Administration Sodium Chloride 500 mls @ 0 mls/hr 06/01/21 06:00 Saline 500ml Bag IV PRN PRN As Directed Cefazolin Sodium/Dextrose 2 gm in 50 mls @ 100 mls/hr 06/01/21 06:00 Ancef Duplex IVPB PREOP CAROL IV Miscellaneous Supplies 1 each 06/01/21 06:00 Iv Access IV 06/30/21 23:59 DIRECTED CAROL IV Miscellaneous Supplies 1 each 06/01/21 06:00 Iv Access IV DIRECTED CAROL Povidone Iodine 0 ml 06/01/21 06:00 Povidone-Iodine Soln. 118 Ml Btl TP DIRECTED CAROL Sodium Chloride 0 ml 06/01/21 06:00 Normal Saline Flush 10 Ml Syr IV 06/30/21 23:59 PRN PRN Sodium Chloride 0 ml 06/01/21 06:00 Normal Saline 10 Ml Vial IJ 06/30/21 23:59 DIRECTED PRN Sodium Chloride 0 ml 06/01/21 06:00 Normal Saline Flush 10 Ml Syr IVP PRN PRN Sterile Water 0 ml 06/01/21 06:00 Water,Injection,Sterile 10 Ml Vial IJ 06/30/21 23:59 DIRECTED PRN PFSH Active Problems Active Problems: Problem Status Onset Code UTI (urinary tract infection) N39.0 Atrial fibrillation with RVR I48.91 Migraine headache without aura G43.009 Migraine headache with aura G43.109 Lesion of lip K13.0 Arthralgia M25.50 Chronic back pain M54.9, G89.29 Chronic headaches R51 Atrial fibrillation Medical History Medical History Abdominal pain, epigastric Anxiety Aphasia Chronic cough Dysphagia GERD (gastroesophageal reflux disease) Grief reaction H/O measles Heel spur Hyperlipidemia Lactose intolerance Menopausal syndrome (hot flashes) Paresthesia Preventative health care Screening mammogram, encounter for Seasonal allergies Skin lesion of face Solar lentigo Tension headache Surgical History Surgical History Achilles tendon tear both repaired here. H/O cardiac radiofrequency ablation H/O esophagogastroduodenoscopy Tobacco Smoking/Tobacco Use Status: Never Alcohol Alcohol Intake: current Alcohol intake frequency: a few times a week Alcohol type: hard liquor Substance Use Substance use: Never Substance use type: does not use Vital Signs and Lab Results Vital Signs Most Recent Vital Signs in EMR: Most Recent Vital Signs Temp Pulse Resp BP Pulse Ox 36.4 C L 63 16 124/72 97 06/01/21 06:23 06/01/21 06:23 06/01/21 06:23 06/01/21 06:23 06/01/21 06:23 Lab Results Blood Type / Crossmatch: No Data to Display Complete Blood Count: No Data to Display Complete Metabolic Panel: No Data to Display Liver Function Panel: No Data to Display Coagulation Panel: No Data to Display Cardiac Panel: No Data to Display Arterial Blood Gas: No Data to Display Venous Blood Gas: No Data to Display Pancreas Panel: No Data to Display Thyroid Panel: No Data to Display Infectious Disease: Coronavirus (COVID-19)(PCR) Negative (Negative) 05/30/21 10:20 05/30/21 Coronavirus 2019 Source Nasal/Nares 05/30/21 10:20 05/30/21 Blood Cultures: No Data to Display Toxicology Panel: No Data to Display Imaging and Studies Imaging and Studies Study information below may be from another EMR and interpreted by another provider. Please see original notes in EMR for more complete details. EKG Summary: 11/05/20: Exam: Resting ECG Reason for Exam: PALPATATIONS Patient Location: E HR:67 bpm ECG Measurements Heart Rate 67 AXIS FL [id number] P [id number] QRSd 69 QRS 52 QT 375 T78 QTc 396 Conclusion Atrial fibrillation...V-rate 59- 63, irreg A-activity I have reviewed and I agree with the emergency room physician's ECG interpretation. Stress Test Summary: 01/16/2015: Summary: 1. Myocardial perfusion imaging: Moderate size, moderate intensity predominantly fixed anterior defect. Dense breast shadow noted on raw imaging. Defect reolves with AC. Normal anterior wall motion. Defect c/w breast artifact. No myocardial perfusion defects noted. 2. The calculated left ventricular ejection fraction after stress: 60%. 3. Impressions: Normal perfusion by [id number] Sestamibi Imaging. Ventricular bigeminy with exercise, consider cardiology f/u. Echocardiogram Summary: 02/23/2014: SUMMARY: 1. Patient was in atrial fibrillation throughout the study which interferes with accurate assessment of regional wall motion. 2. Left ventricle normal size and systolic function, ejection fraction 65-70% No wall motion abnormalities. 3. Left atrial enlargement. 4. No significant valvular heart disease. 5. Normal pulmonary artery pressures, 25-30 mmHg. Anesthesia Assessment and Plan Anesthesia History Personal History: No History of Anesthesia Complications Family History: No Family History of Anesthesia Complications Exercise Tolerance Exercise Tolerance: Metabolic Equivalents>4 Pertinent Negatives Pertinent Negatives: No Symptoms of GERD and No Major Pulmonary Symptoms or Complaints Cardiac & Pulmonary Exam Cardiac Exam: Normal S1/S2 Heart Sounds Pulmonary Exam: Clear Bilateral Breath Sounds Implantable Cardiac Device Does patient have a Pacemaker or an ICD?: No Airway Exam Known Difficult Airway: Yes Mallampati Class: 2 Mouth Opening: Normal (> 3cm) Thyromental Distance: Greater than 3 cm Neck Range of Motion: Full ROM Neck Circumference: Normal Teeth Condition: Normal Dentition ASA Classification ASA Score: ASA 3 Emergency Case?: No NPO Status NPO Status: NPO Clears >2 hours, Solids >8 hours Anesthesia Plan Resuscitation Status: Full Code Anesthesia Technique: General Anesthesia Airway Planned: Natural Airway Monitors Used: Standard Monitors
[2021-06-01 07:08] VITALS: BMI 35.3
[2021-06-01] MEDS: ceFAZolin 2 GM/50 ML BAG IVPB (07:35)
[2021-06-01] MEDS: Lidocaine 1% Multi-Dose 50 ML VIAL (08:16)
[2021-06-01] MEDS: Bupivacaine 0.5% Pres-Free 30 ML VIAL (08:16)
[2021-06-01] MEDS: Dexamethasone 4 MG/ML VIAL (08:40)
--- NOTE | 2021-06-01 09:01 | PDOC.DSDIS_ITS ---
Discharge Plan Disposition Patient Disposition: HOME Condition: Good Discharge Details Reason For Visit: Debridement right Achilles tendon and calcaneal ex Attending Provider: Yomi May Primary Care Provider: Joan Saez Home Meds and New Rx's Prescriptions: New oxycodone-acetaminophen 7.5-325 mg tablet 1 tab PO Q6H PRN (Reason: post op pain) Qty: 20 RF: 0 ibuprofen 600 mg tablet 600 mg PO Q6H PRN (Reason: pain and inflammation) Qty: 60 RF: 1 Continued spironolactone 50 mg tablet 50 mg PO DAILY RF: 0 bisacodyl [Dulcolax (bisacodyl)] 5 mg tablet,delayed release (DR/EC) 5 mg PO TID RF: 0 potassium chloride 20 mEq tablet extended release 20 meq PO BID RF: 0 acetaminophen [Tylenol Extra Strength] 500 mg tablet 500 mg PO DAILY RF: 0 fluticasone propionate [Flonase Allergy Relief] 50 mcg/actuation [place],Suspension 1 spray INTRANASAL BID RF: 0 ascorbic acid (vitamin C) [Vitamin C] 500 mg Tablet 500 mg PO BID RF: 0 gabapentin 300 mg Capsule 300 mg PO TID RF: 0 hydroxyzine HCl 25 mg Tablet 25 mg PO TID PRNRF: 0 loratadine 10 mg tablet 10 mg PO DAILY RF: 0 magnesium oxide 400 mg magnesium tablet 400 mg PO TID RF: 0 diclofenac sodium 1 % gel 4 g topical QID PRN (Reason: joint pain) 6 Days Qty: 100 RF: 11 atorvastatin [Lipitor] 10 MG tablet 10 mg PO HS RF: 0 losartan 100 MG tablet 100 mg PO DAILY RF: 0 cholecalciferol (vitamin D3) [Vitamin D3] 2,000 UNIT capsule 1,000 units PO DAILY RF: 0 levalbuterol tartrate [Xopenex HFA] 15 GM HFA aerosol inhaler 2 puff Inhalation Q6H PRNRF: 0 Xarelto 20 MG tablet 20 mg PO DAILY RF: 0 diltiazem HCl 30 mg tablet 120 mg PO PRN PRN (Reason: afib) RF: 0 hydrochlorothiazide 12.5 mg Tablet 6.25 mg PO DAILY RF: 0 esomeprazole magnesium [Nexium] 40 mg Capsule,Delayed Release(Dr/Ec) 40 mg PO DAILY RF: 0 Discharge Instructions Equipment/Supplies: Non-Weight Bearing Crutches Activity:: Elevate Remove Dressings/Wound Care:: Do Not Remove Shower/Bathe:: Cover Diet:: Normal Diet Discharge Orders Discharge Orders: Discharge Order (Routine); Ordered 06/01/21 Ordered By: Yomi May DS: Diagnosis Discharge Diagnosis (1) Achilles tendinosis of right lower extremity: Status: Acute
--- NOTE | 2021-06-01 09:06 | ROE_ITS ---
Date of service: 06/01/21 Time of Service: 09:06 Operative Note Operative Note DATE OF PROCEDURE: 06/01/21 PRE-OP DIAGNOSIS: Right Achilles tendinosis with calcaneal exostosis POST-OP DIAGNOSIS: same PROCEDURE: Debridement right Achilles tendon with resection calcaneal exostosis and Tiffany's deformity SURGEON: Yomi May ANESTHESIA TYPE: General:No Airway Refer to Anesthesia Record ESTIMATED BLOOD LOSS: 1 PATHOLOGY: none sent TOURNIQUET TIME: 57 COMPLICATIONS: None Patient was transported to: same day Patient's condition: stable Implants: Arthrex bio compatible swivet lock suture anchor 4.75 mm Indications: 60-year-old female with chronic pain associated with right Achilles tendinosis, 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 Pain is interfering with daily ambulatory activities and shoe gear use. Nonoperative treatments have failed to provide lasting relief of symptoms. She is opting for surgical intervention. She understands potential risk and complications of surgery pertaining to pain, scarring, infection, wound dehiscence, Achilles tendon rupture, calcaneal fracture, recurrence of exostosis formations and ongoing pain. Nerve injury and DVT issues. All questions have been answered, patient accepts risks of surgery. Informed consent was obtained. Procedure Description: Tabitha was brought to the operative suite placed in the prone position with the right foot was prepped and draped in the usual sterile podiatric fashion. Timeout was performed for safe surgery. Anesthesia was obtained through general IV and local blockade of the operative site utilizing 16 cc of 50: 50 mixture 1% lidocaine plain, 0.5% Marcaine plain. A thigh tourniquet was utilized. The right foot and leg were exsanguinated and a well padded thigh tourniquet inflated to 350 mmHg. Attention was directed to the posterior aspect of the heel and a 4 cm incision was made ending just distal to the Achilles insertion into the os calcis. The incision was deepened in controlled depth fashion with a #15 scalpel. Adhesions were encountered due to previous surgical interventions in this region. Hemostasis was acquired with electrocautery as needed. Once the Achilles tendon was clearly visualized a midline incision was made at the level of the Tiffany's deformity and insertion into the os calcis. Calcification of the Achilles tendon was encountered and this was sharply excised. Yellowish discoloration of mid substance portion of Achilles was appreciated and also resected. Dissection was now carried down by removing the Achilles tendon from the bony attachment retracting it medially and laterally. limited dissection was performed in an effort to preserve Achilles attachment into the calcaneus. With osteotome and mallet the Tiffany's deformity was resected. The retrocalcaneal exostosis was also resected with osteotome and mallet and all rough and bony edges were rasped smooth copious irrigation was performed. Arthritic soft tissue anchor was then inserted into the os calcis posteriorly so as to reattach the Achilles tendon anatomically. Utilizing FiberWire the distal component of the Achilles was sutured down to the soft tissue anchor in physiologic tension. The Achilles tendon itself was then sutured and repaired utilizing 2-0 Vicryl simple interrupted suture. The wound was then sutured in layers starting with 3-0 Vicryl advancing to a 4-0 Vicryl the perform a subcutaneous closure followed by a running 4-0 Monocryl to close the skin subcuticularly. 4 mg of dexamethasone phosphate was infused deeply into the wound. Mastisol applied and half-inch Steri-Strips utilized. Xeroform fluff gauze compression dressings were applied and a posterior splint utilized. The thigh tourniquet was released at 57 minutes with vascularity returning imm ediately to the right lower extremity. Sharp and sponge counts were correct. Tabitha left the OR with vital signs stable vascular status intact. She will remain nonweightbearing. She will follow-up with me in the office next week.
[2021-06-01 09:10] VITALS: BP 115/70; PULSE 53; RESP 14; TEMP 36.1; O2SAT 97
[2021-06-01 09:46] VITALS: BP 110/55; PULSE 54; RESP 16; TEMP 36.4; O2SAT 98
--- NOTE | 2021-06-01 10:56 | PT.INIE ---
Date of service: 06/01/21 Time of Service: 10:56 PT Notes Visit Reasons: Debridement right Achilles tendon and calcaneal ex Physical Therapy Day Surgery Initial Evaluation Date: 04/11/2021 Referring Doctor: Yomi May MD PT Orders: PT CONSULT: Safety consult for D/C Precautions: NWB on right LE with AD. Patient Profile/Admitting Diagnosis: Tabitha is a 60-year-old female with right Achilles tendinosis with calcaneal exostosis, status post debridement of her right Achilles tendon with resection of calcaneal exostosis and Tiffany's deformity on postoperative day 0. PMHX: All Active Problems UTI (urinary tract infection) (Acute) Atrial fibrillation with RVR (Acute) Migraine headache without aura (Acute) Migraine headache with aura (Acute) Lesion of lip (Acute) Arthralgia (Acute) Chronic back pain (Chronic) Chronic headaches (Chronic) Atrial fibrillation (Chronic) Medical History Abdominal pain, epigastric Anxiety Aphasia Chronic cough Dysphagia GERD (gastroesophageal reflux disease) Grief reaction H/O measles Heel spur Hyperlipidemia Lactose intolerance Menopausal syndrome (hot flashes) Paresthesia Preventative health care Screening mammogram, encounter for Seasonal allergies Skin lesion of face Solar lentigo Tension headache Surgical History Achilles tendon tear both repaired here. H/O cardiac radiofrequency ablation H/O esophagogastroduodenoscopy Social History/Home Situation: Lives with in a private home with 2 steps to enter without rails. Independent with all aspects of ADLs prior to surgery without an assistive device Equipment Owned/DME: None Subjective: Agreeable to PT consult. Denies headache, chest pain, and dizziness throughout session. Did report discomfort in fifth toe as the kept on rubbing against the tip of dressing and a portion of the posterior splint. Objective: General Observation: Supine on stretcher. Posterior splint over compression dressing on the right LE. Mental Status: Alert and oriented x4 Pain: 3-4/10 pain in the right foot ROM: Right Upper Extremity: Shoulder Flexion WFL. Shoulder abduction WFL. Elbow flexion WFL. Wrist flexion WFL. Functional opening and closing of hand WFL. Left Upper Extremity: Shoulder Flexion WFL. Shoulder abduction WFL. Elbow flexion WFL. Wrist flexion WFL. Functional opening and closing of hand WFL. Right Lower Extremity: Hip flexion WFL. Hip abduction WFL. Knee flexion WFL. Ankle dorsiflexion NT. Ankle plantarflexion NT. Left Lower Extremity: Hip flexion WFL. Hip abduction WFL. Knee flexion WFL. Ankle dorsiflexion WFL. Ankle plantarflexion WFL. Strength: Right Upper Extremity: Shoulder flexors 5/5. Shoulder abductors 5/5. Elbow flexors 5/5. Elbow extensors 5/5. Pumping Supervisor strong. Left Upper Extremity: Shoulder flexors 5/5. Shoulder abductors 5/5. Elbow flexors 5/5. Elbow extensors 5/5. Pumping Supervisor strong. Right Lower Extremity: Hip flexors 5/5. Hip abductors 5/5. Knee flexors NT. Knee extensors NT. Ankle dorsiflexors NT. Ankle plantarflexors NT. Left Lower Extremity:Hip flexors 5/5. Hip abductors 5/5. Knee flexors 5/5. Knee extensors 5/5. Ankle dorsiflexors 5/5. Ankle plantarflexors 5/5. Sensation: Intact as to pain and pressure in right LE Bed Mobility/Transfers: Supine to sit supervision Sit to stand standby assist Stand to sit standby assist Bed to chair standby assist Gait: Instructed patient on level surface ambulation of up to 30 feet +20 feet using bilateral axillary crutches with nonweightbearing on right LE. Assist provided for safety. Minimal cues provided for crutch moderate management and overall safety. Stairs: Associated up-and-down 12 x 4 inch steps in a x6 inch steps while holding onto bilateral axillary crutches with nonweightbearing on the right LE requiring contact-guard assist. Did not report of increased pain. Balance: Static Sitting: Normal Dynamic Sitting: Normal Static Standing: Unable due to weight bearing precaution Dynamic Standing: Unable due to weightbearing precaution Special Tests: Mobility Limitations Standardized Measure [facility] AM-PAC 6 clicks Basic Mobility Inpatient Short Form: Raw Score: 23 CMS Score: 11% deficit Informed Consent/Education: Patient instructed in purpose of PT consult. Education and training provided on safe functional mobility performance using bilateral axillary crutches on level surfaces on stairs. Assessment: Patient requires the use of bilateral axillary crutches for all transfers and ambulation test performance with non-weight bearing on the right LE. Patient presents with clinical signs and symptoms consistent with current/admitting diagnoses that have resulted to mobility limitations, gait instability, generalized weakness, and impairment of motor control as demonstrated by the following impairment level findings: 1. Decreased strength to R leg major muscle groups 2. Impaired standing balance 3. Limitation of joint range of motion in R knee, ankle and foot Impairments are contributing to the following functional limitations: 1. Inability to safely ambulate without assistive device 2. Increase completion time for mobility ADL performance 3. Increased fall risk Patient is assessed as a 95749 moderate complexity based on the following: History: 60-year-old female with impairment level findings, functional limitations, and past medical history as indicated above Examination: Demonstrable impairment in strength, balance, and mobility level with underlying impairments and functional limitations as documented above Presentation: Evolving Decision Makin moderate Goals: N/A. PT evaluation and 1-2 treatment sessions only for functional mobility training using recommended AD. Plan of Care/Treatment Plan: N/A. PT evaluation and 1-2 treatment session only for functional mobility training using recommended AD. DISCHARGE RECOMMENDATIONS: [] Home with no services [] [] Home with services [specify] [X] Home with outpatient PT. Home when medically cleared by can capper. May benefit from outpatient PT services once cleared by can capper in order to facilitate to independent community ambulation without an assistive device. [] SNF for continued rehabilitation [] [] Penitentiary Care [] [] SNF versus LTC based on ability to participate and progress [] TREATMENT CODE/TIME: 9716 2 x 20 minutes, 9753 0 x 9 minutes beginning at 10:56 AM. Thank you for the opportunity to participate in the care of this patient. Maryam Harrington PT, DPT, CLT [facility] [place], [place]
[2021-06-01 11:36] VITALS: BP 136/76; PULSE 68; RESP 16; TEMP 36.5; O2SAT 96
--- NOTE | 2021-06-07 08:06 | W.ANESPOSTOP ---
Postoperative Evaluation Date, Time and Location Date Performed: 06/07/21 Time Performed: 08:06 Patient Location: Day Surgery Unit Vital Signs Most Recent Imported Vital Signs: Most Recent Vital Signs Temp Pulse Resp BP Pulse Ox 36.5 C 68 16 136/76 96 06/01/21 11:36 06/01/21 11:36 06/01/21 11:36 06/01/21 11:36 06/01/21 11:36 Pain Score Most Recent Pain Score: Most Recent Pain Score Pain Level 7 06/01/21 11:36 Assessment Mental Status: Awake (Alert & Oriented to Patient Baseline) Airway and Respiratory Function: Patent airway with normal (patient baseline) respiratory exam Cardiovascular Function: Hemodynamically Stable Hydration Status: Adequately Hydrated Nausea & Vomiting: No Nausea or Vomiting Pain: Pt. Denies Any Pain Peripheral Nerve Block: Patient did not receive a nerve block
== END 2021-06-01 12:34 | disposition home or self-care (01) ==
PROVIDERS: PCP Nurse Practitioner Family; Visit Provider Podiatrist
PROC: (CPT 27654; principal; 2021-06-01 07:30)
DX: M76.61 Achilles tendinitis, right leg (principal); M77.31 Calcaneal spur, right foot; I48.91 Unspecified atrial fibrillation; K21.9 Gastro-esophageal reflux disease without esophagitis
CPT/HCPCS: 27654; 28119; 97162; 97530; J0690; J1100; J2001; J2250; J3010

== ENCOUNTER 2021-07-20 18:37 | Outpatient (REF) | payer BC, SELFPAY ==
[2021-07-22 12:14] LABS: COVID-19 RT-PCR UVMMC Result Negative (Negative)
== END 2021-07-20 18:38 | disposition home or self-care (01) ==
LOC: LBN 18:37
PROVIDERS: PCP Nurse Practitioner Family; Visit Provider Physician Assistant Medical
DX: Z20.822 Contact with and (suspected) exposure to COVID-19 (principal); J34.89 Other specified disorders of nose and nasal sinuses
CPT/HCPCS: U0003

== ENCOUNTER 2021-07-27 18:01 | Outpatient (REF) | payer BC, SELFPAY | END 2021-07-27 18:02 | disposition home or self-care (01) | LOC: LBN 18:01 | PROVIDERS: PCP Nurse Practitioner Family; Visit Provider Physician Assistant Medical ==

== ENCOUNTER 2021-07-31 20:43 | Outpatient (REF) | payer BC, SELFPAY | END 2021-07-31 20:44 | disposition home or self-care (01) | LOC: NCHCN 20:43 | PROVIDERS: PCP Nurse Practitioner Family; Visit Provider Nurse Practitioner Family | DX: R30.0 Dysuria (principal) | CPT/HCPCS: 87086 ==

== ENCOUNTER 2021-08-10 17:31 | Outpatient (REF) | payer BC, SELFPAY ==
[2021-08-10 15:59] LABS: Anion Gap 8.6 mmol/L (3-11); BUN 8 mg/dL (7-18); CO2 28.4 mmol/L (21.0-32.0); CREATININE 0.7 mg/dL (0.55-1.02); Calcium 9.2 mg/dL (8.5-10.1); Chloride 100 mmol/L (98-107); Glucose 91 mg/dL (74-106); Potassium 4.2 mmol/L (3.5-5.1); Sodium 137 mmol/L (136-145)
== END 2021-08-10 17:32 | disposition home or self-care (01) ==
LOC: NCHCN 17:31
PROVIDERS: PCP Nurse Practitioner Family; Visit Provider Nurse Practitioner Family
DX: I10 Essential (primary) hypertension (principal); I48.91 Unspecified atrial fibrillation; M25.50 Pain in unspecified joint; F41.9 Anxiety disorder, unspecified; G43.909 Migraine, unspecified, not intractable, without status migrainosus; R30.0 Dysuria; E87.1 Hypo-osmolality and hyponatremia
CPT/HCPCS: 80048; 87086

== ENCOUNTER 2021-11-08 11:11 | Outpatient (REF) | payer BC, SELFPAY ==
--- NOTE | 2021-11-08 10:15 | PAPFT_PTH ---
PATIENT: Yen Matthews LOC: [facility]#:[id number] AGE/SX: 61/F ROOM: RE11/08/[address]: Joan Saez : 1960 BED: DIS: 11/08/2021 SPEC #: [id number] RECD: 11/08/21 17:34 STATUS: PARVEEN REStephen #: [id number] FANTA: 11/08/21 10:[address]: Joan Saez DEPT: [facility] Cytology RECD BY: Magy Garrido Tissues: 1 - CX/ENDOCX FOR PAP SMEARS Procedures: PAP THIN PREP/UVM Screening HPV DNA PROBE Comments: [id number]
== END 2021-11-08 11:12 | disposition home or self-care (01) ==
LOC: NCHCN 11:11
PROVIDERS: PCP Nurse Practitioner Family; Visit Provider Nurse Practitioner Family
DX: R30.0 Dysuria (principal); Z12.4 Encounter for screening for malignant neoplasm of cervix; Z11.51 Encounter for screening for human papillomavirus (HPV); Z00.00 Encounter for general adult medical examination without abnormal findings; Z01.419 Encounter for gynecological examination (general) (routine) without abnormal findings
CPT/HCPCS: 88142; 87086; 87624

== ENCOUNTER → 2021-11-30 00:05 | Outpatient (CLI) | payer BC, SELFPAY ==
--- NOTE | 2021-11-30 14:37 | DI.MAMMO_ITS ---
Exam(s) MAMMO SCREENING EXAM: MAMMO SCREENING CLINICAL HISTORY: SCREENING, Z12.31 TECHNIQUE: Bilateral full field digital CC and MLO mammographic images were obtained with 3D tomosyn thesis and utilizing computer aided detection (CAD). COMPARISON: Available for comparison. FINDINGS: Masses/Architectural Distortion: None seen. Microcalcifications: No suspicious pleomorphic-type are seen. Skin Thickening/Nipple Retraction: None. IMPRESSION: 1. No significant interval change with no specific features of malignancy noted. 2. Unless there is more urgent need, screening mammography is recommended, as per [employer] guidelines. BI-RADS Category 1 - Negative Breast Density - Category B - Scattered areas of fibroglandular density Breast density category C or D implies that the patient has dense breast tissue. Dense breast tissue is very common and is not abnormal but dense breast tissue can make it harder to find cancer on a ma mmogram. Also, dense breast tissue may increase their breast cancer risk. This information about the result of the mammogram report was provided to the patient to raise their awareness. Use this report when you speak with the patient about their risks for breast cancer, which includes their family hist ory. At that time, you may recommend for more screening tests (Ultrasound or MRI) as they might be us eful based on their risk. A negative radiographic report should not delay biopsy if a dominant or clinically suspicious mass is present. Up to ten percent of cancers are not identified on mammography. A negative report may reinforce clinical impression. Adenosis and dense breasts may obscure an underlying neoplasm. False positive reports average 6 to 10%. Patient will receive a letter notifying them of these results.
== END ==
PROVIDERS: PCP Nurse Practitioner Family; Visit Provider Nurse Practitioner Family
DX: Z12.31 Encounter for screening mammogram for malignant neoplasm of breast (principal)
CPT/HCPCS: 77063; 77067

== ENCOUNTER 2022-04-01 16:32 | Outpatient (REF) | payer BC, SELFPAY ==
[2022-04-01 15:30] LABS: ALT 53 U/L (14-59); AST 23 U/L (15-37); Alkaline Phosphatase 115 U/L (46-116); Anion Gap 9.6 mmol/L (3-11); BUN 11 mg/dL (7-18); Bilirubin, Total 0.8 mg/dL (0.2-1.0); CO2 27.4 mmol/L (21.0-32.0); CREATININE 0.7 mg/dL (0.55-1.02); Calcium 9.2 mg/dL (8.5-10.1); Chloride 101 mmol/L (98-107); Estimated GFR 97.12 (mL/min/1.73m2); Glucose 88 mg/dL (74-106); Magnesium 1.7 mg/dL (1.8-2.4); Potassium 4.4 mmol/L (3.5-5.1); Sodium 138 mmol/L (136-145); Total Protein 7.2 g/dL (6.4-8.2); Vitamin B12 601 pg/mL (193-986)
== END 2022-04-01 16:33 | disposition home or self-care (01) ==
LOC: NCHCN 16:32
PROVIDERS: PCP Nurse Practitioner Family; Visit Provider Nurse Practitioner Family
DX: E87.1 Hypo-osmolality and hyponatremia (principal); I10 Essential (primary) hypertension; K21.9 Gastro-esophageal reflux disease without esophagitis; M25.59 Pain in other specified joint; F41.9 Anxiety disorder, unspecified; J34.89 Other specified disorders of nose and nasal sinuses; G43.909 Migraine, unspecified, not intractable, without status migrainosus
CPT/HCPCS: 80053; 82607; 83735

== ENCOUNTER 2023-02-18 20:32 | Outpatient (REF) | payer BC, SELFPAY ==
[2023-02-18 20:52] LABS: Abs Immature Grans 0.03 10^3/uL (0.0-0.06); Absolute Basophil Count 0.04 10^3/uL (0.0-0.2); Absolute Eosinophil Count 0.05 10^3/uL (0.0-0.7); Absolute Monocyte Count 0.54 10^3/uL (0.1-0.8); Absolute Neutrophil Count 5.82 10^3/uL (1.2-6.7); Basophils % 0.5; Eosinophils % 0.6; HCT 43.7 % (36.0-46.0); Immature Grans % 0.4; Lymphocytes % 16.7; MCHC 34.3 % (32.0-36.0); MCV 87 fL (80-95); MPV 10.2 fL (8.0-11.0); Monocytes % 6.9; Neutrophils % 74.9; Platelet Count 266 10^3/uL (130-400); RDW 14.1 % (11.7-14.6); RDW-SD 44.8 fL; WBC 7.78 10^3/uL (4.4-10.8)
[2023-02-18 21:37] LABS: Ferritin 129 ng/mL (8-252); Vitamin B12 574 pg/mL (193-986)
[2023-02-18 21:41] LABS: Folate > 20.0 ng/mL (8.6-20.0)
[2023-02-18 22:24] LABS: Iron 67 ug/dL (50-170); Total Iron Binding Capacity 295 ug/dL (250-450); Transferrin Sat 23 % (15-50)
== END 2023-02-18 20:33 | disposition home or self-care (01) ==
LOC: NCHCN 20:32
PROVIDERS: PCP Nurse Practitioner Family; Visit Provider Nurse Practitioner Family
DX: D75.1 Secondary polycythemia (principal); I48.91 Unspecified atrial fibrillation; R26.89 Other abnormalities of gait and mobility
CPT/HCPCS: 82607; 82728; 82746; 83540; 83550; 85025

== ENCOUNTER 2023-04-21 13:55 | Outpatient (CLI) | payer BC, SELFPAY ==
[2023-04-21 12:03] LABS: Anion Gap 11.2 mmol/L (3-11); BUN 8 mg/dL (7-18); CO2 24.8 mmol/L (21.0-32.0); CREATININE 0.9 mg/dL (0.55-1.02); Calcium 9.3 mg/dL (8.5-10.1); Chloride 99 mmol/L (98-107); Estimated GFR 71.39 (mL/min/1.73m2); Glucose 108 mg/dL (74-106); Magnesium 1.9 mg/dL (1.8-2.4); Potassium 4.5 mmol/L (3.5-5.1); Sodium 135 mmol/L (136-145)
== END 2023-04-21 13:56 | disposition home or self-care (01) ==
PROVIDERS: PCP Nurse Practitioner Family; Visit Provider Internal Medicine Cardiovascular Disease
DX: I48.0 Paroxysmal atrial fibrillation (principal)
CPT/HCPCS: 36415; 80048; 83735

== ENCOUNTER 2023-05-30 15:57 | Outpatient (REF) | payer BC, SELFPAY | END 2023-05-30 15:58 | disposition home or self-care (01) | LOC: NCHCN 15:57 | PROVIDERS: PCP Nurse Practitioner Family; Visit Provider Nurse Practitioner Family | DX: R35.0 Frequency of micturition (principal) | CPT/HCPCS: 87086 ==

== ENCOUNTER 2023-09-28 09:34 | Emergency (ER) | payer MEDICARE, SELFPAY ==
[2023-09-28 09:37] VITALS: BP 173/83; PULSE 72; RESP 20; TEMP 36.5; O2SAT 98
--- NOTE | 2023-09-28 09:45 | DI.RAD_ITS ---
Exam(s) XR CHEST 2V PA LATERAL EXAM: XR CHEST 2V PA LATERAL CLINICAL HISTORY: cough, shortness of breath, fever. TECHNIQUE: 2D digital imaging was performed. COMPARISON: CR,XR XR PORTABLE CHEST AP from 11/05/2020 FINDINGS: 2 views: Heart size is normal. The mediastinum is not widened. Lungs are clear. No infiltrates nor pleural effusions. IMPRESSION: No acute pulmonary findings. DATA REPOSITORY: RADIATION DOSE DELIVERED:
--- NOTE | 2023-09-28 10:01 | W.ED.GENAD ---
Discharge Plan Disposition Patient Disposition: Home Condition: Stable Discharge Details Clinical Impression: COVID, Respiratory syncytial virus (RSV) Primary Care Provider: Joan Saez ED Provider: Magy Mar Home Meds and New Rx's Prescriptions: New prednisone 20 mg tablet 40 mg PO ONCE Qty: 8 0RF Continued spironolactone 50 mg tablet 25 mg PO DAILY bisacodyl [Dulcolax (bisacodyl)] 5 mg tablet,delayed release (DR/EC) 5 mg PO TID potassium chloride 20 mEq tablet extended release 20 meq PO BID acetaminophen [Tylenol Extra Strength] 500 mg tablet 500 mg PO DAILY fluticasone propionate [Flonase Allergy Relief] 50 mcg/actuation [place],Suspension 1 spray INTRANASAL BID ascorbic acid (vitamin C) [Vitamin C] 500 mg Tablet 500 mg PO BID gabapentin 300 mg Capsule 300 mg PO TID magnesium oxide 400 mg magnesium tablet 400 mg PO TID diclofenac sodium 1 % gel 4 g topical QID PRN (Reason: joint pain) 6 Days Qty: 100 11RF montelukast 10 mg tablet 10 mg PO DAILY azelastine 205.5 mcg (0.15 %) spray,non-aerosol 1 spray intranasal BID Rx Instructions: administer into each nostril atorvastatin [Lipitor] 10 MG tablet 10 mg PO HS losartan 100 MG tablet 100 mg PO DAILY cholecalciferol (vitamin D3) [Vitamin D3] 2,000 UNIT capsule 1,000 units PO DAILY levalbuterol tartrate [Xopenex HFA] 15 GM HFA aerosol inhaler 2 puff Inhalation Q6H PRN Xarelto 20 MG tablet 20 mg PO DAILY esomeprazole magnesium [Nexium] 40 mg Capsule,Delayed Release(Dr/Ec) 40 mg PO DAILY diltiazem HCl 180 mg capsule,extended release 24hr 180 mg PO DAILY Patient Comments: TAKE ONE CAPSULE BY MOUTH EVERY DAY dofetilide [Tikosyn] 125 mcg capsule 125 mcg PO ONCE Discharge Instructions Instructions: Viral Syndrome (ED) Additional Instructions: you have RSV and COVID-19, I recommend isolating until you are feeling improvement Take the prednisone daily, you received a dose today your next dose is tomorrow Use your albuterol inhaler, 2 puffs every 4 hours with the spacer provided Increase your fluids Mucinex for cough and congestion Hot tea with honey and lemon several times daily Humidifier in your room Referrals: Joan Saez [Primary Care Provider] - [facility] General Date/Time Provider Initiated Documentation: 09/28/23 09:45. HPI Narrative: This 63-year-old female presents with upper respiratory symptoms since Friday of this week. 101 fever yesterday, chest pain with coughing. Has some mild shortness of breath. History of asthma. Denies any calf pain or swelling, recent flights, surgeries, long drives. Denies any persistent chest pain. Has been using her inhaler with mild relief in symptoms. Related Data Home Medications Medication Instructions Recorded Confirmed atorvastatin 10 mg tablet (Lipitor) 10 mg PO HS 03/19/13 09/28/23 cholecalciferol (vitamin D3) 50 1,000 units PO DAILY 03/19/13 09/28/23 mcg (2,000 unit) capsule (Vitamin D3) losartan 100 mg tablet 100 mg PO DAILY 03/19/13 09/28/23 levalbuterol tartrate 45 2 puff inhalation Q6H PRN 01/27/16 09/28/23 mcg/actuation aerosol inhaler (Xopenex HFA) rivaroxaban 20 mg tablet (Xarelto) 20 mg PO DAILY 01/27/16 09/28/23 acetaminophen 500 mg tablet 500 mg PO DAILY 03/10/18 09/28/23 (Tylenol Extra Strength) bisacodyl 5 mg tablet,delayed 5 mg PO TID 03/10/18 09/28/23 release (Dulcolax (bisacodyl)) potassium chloride 20 mEq 20 meq PO BID 03/10/18 09/28/23 tablet,extended release spironolactone 50 mg tablet 25 mg PO DAILY 03/10/18 09/28/23 fluticasone propionate 50 1 spray intranasal BID 04/28/19 09/28/23 mcg/actuation nasal spray,suspension (Flonase Allergy Relief) magnesium oxide 400 mg PO TID 07/06/19 09/28/23 ascorbic acid (vitamin C) 500 mg 500 mg PO BID 03/08/20 09/28/23 tablet (Vitamin C) gabapentin 300 mg capsule 300 mg PO TID 03/08/20 09/28/23 diclofenac sodium 1 % topical gel 4 g topical QID PRN joint pain 6 12/02/20 04/07/24 days #100 grams esomeprazole magnesium 40 mg 40 mg PO DAILY 06/01/21 09/28/23 capsule,delayed release (Nexium) azelastine 205.5 mcg (0.15 %) 1 spray intranasal BID 11/15/21 09/28/23 nasal spray montelukast 10 mg tablet 10 mg PO DAILY 11/15/21 09/28/23 diltiazem HCl 180 mg 180 mg PO DAILY 09/28/23 09/28/23 capsule,extended release 24 hr dofetilide 125 mcg capsule 125 mcg PO ONCE 09/28/23 09/28/23 (Tikosyn) prednisone 20 mg tablet 40 mg (2 x 20 mg) PO ONCE #8 tabs 09/28/23 Previous Rx's Medication Instructions Recorded diclofenac sodium 1 % topical gel 4 g topical QID PRN joint pain 6 05/24/20 days #100 grams prednisone 20 mg tablet 40 mg (2 x 20 mg) PO ONCE #8 tabs 09/28/23 Allergies Allergy/AdvReac Type Severity Reaction Status Date / Time lisinopril Allergy Other (See Unverified 09/28/23 09:39 Comment) sulfamethoxazole Allergy Hives Unverified 09/28/23 09:39 [From Bactrim] trimethoprim [From Bactrim] Allergy Hives Unverified 09/28/23 09:39 venom-honey bee Allergy Swelling/Ed Unverified 09/28/23 09:39 loki metoprolol AdvReac Mild Cardiac Unverified 09/28/23 09:39 Dysrythmia General Stated Complaint: RespSymp MARION: 3 Course Vital Signs Vital signs: Vital Signs Temperature 36.5 C 09/28/23 09:37 Pulse 72 09/28/23 09:37 Respiratory Rate 20 09/28/23 09:37 Blood Pressure 173/83 H 09/28/23 09:37 Pulse Oximetry 98 09/28/23 09:37 Temperature 36.5 C 09/28/23 09:37 Temperature Source Skin 09/28/23 09:37 Pulse 72 09/28/23 09:37 Respiratory Rate 20 09/28/23 09:37 Blood Pressure 173/83 H 09/28/23 09:37 Blood Pressure Position Sitting 09/28/23 09:37 Pulse Oximetry 98 09/28/23 09:37 Oxygen Delivery Method Room Air 09/28/23 09:37 Oxygen Flow Rate 0 09/28/23 09:37 Pain Level 4 09/28/23 09:37 Medical Decision Making 63-year-old female presenting with upper respiratory symptoms, history of asthma, no hypoxia, no acute distress, speaking in complete sentences, lungs clear to auscultation, alert and oriented x 4, no calf swelling or tenderness, reproducible chest wall tenderness, no abdominal tenderness COVID and RSV negative Will treat with prednisone and give spacer for patient's inhaler No acute distress, specifically no evidence of respiratory failure or compromise Low suspicion clinically for any cardiac related etiology Will place on prednisone and use inhaler, will use Mucinex daily Tylenol as needed for pain Return precautions reviewed and patient expressed understanding Chest x-ray per radiology interpretation my review does not show evidence of acute infiltrate Will continue to isolate at home Quality:[facility] Health Related Social Needs: No Data to Display PFSH All Active Problems (Updated 09/28/23 @ 11:31 by EMILE Menjivar) Respiratory syncytial virus (RSV) (Acute) COVID (Acute) Achilles tendinosis of right lower extremity (Acute) UTI (urinary tract infection) (Acute) Atrial fibrillation with RVR (Acute) Migraine headache without aura (Acute) Migraine headache with aura (Acute) Lesion of lip (Acute) Arthralgia (Acute) Chronic back pain (Chronic) Chronic headaches (Chronic) Atrial fibrillation (Chronic) Medical History (Updated 09/28/23 @ 11:31 by EMILE Menjivar) Dysuria Screening mammogram, encounter for Preventative health care GERD (gastroesophageal reflux disease) Tension headache Anxiety Solar lentigo Lactose intolerance Abdominal pain, epigastric Chronic cough Paresthesia Aphasia H/O measles Heel spur Skin lesion of face Menopausal syndrome (hot flashes) Seasonal allergies Dysphagia Hyperlipidemia Grief reaction Surgical History H/O esophagogastroduodenoscopy H/O cardiac radiofrequency ablation Achilles tendon tear both repaired here. Social History Smoking/Tobacco Use Status: Never Smoking risk assessment performed?: Yes Alcohol Intake: current Alcohol Intake frequency: a few times a week Alcohol type: hard liquor Drug use: Never Substance use type: does not use Household members: spouse Housing: house Number of Children: 2 current occupation: Retired teacher What is your relationship status?: Panel score (0-1 are the most socially isolated patients): 1 What type of physical activity do you participate in: walking, independent ambulation and additional Details: barn chores and stretches with kids at school Frequency: daily Do you feel safe at home: Yes Do you feel safe in your relationship?: Yes
[2023-09-28 10:13] VITALS: RESP 18
[2023-09-28] MEDS: predniSONE 20 MG TAB 40 MG PO (10:13)
[2023-09-28] MEDS: Acetaminophen 500 MG TAB 1000 MG PO (10:13)
[2023-09-28] MEDS: Levalbuterol 1.25 MG/3 ML UPD VIAL UPD (10:13)
[2023-09-28 10:45] VITALS: BP 173/83; PULSE 72; RESP 18; TEMP 36.5; O2SAT 98
[2023-09-28 11:05] LABS: Influenza A PCR Negative (Negative); Influenza B PCR Negative (Negative)
[2023-09-28 11:09] LABS: COVID-19 PCR Positive (Negative); RSV PCR Positive (Negative); Source Nasopharynx
--- NOTE | 2023-09-28 11:09 | DI.VRAD_ITS ---
PROCEDURE INFORMATION: Exam: XR Chest Exam date and time: 09/28/2023 10:50 AM Age: 63 years old Clinical indication: Other: Cough, shortness of breath, fever TECHNIQUE: Imaging protocol: Radiologic exam of the chest. Views: 2 views. COMPARISON: CR XR PORTABLE CHEST AP 11/05/2020 11:12 PM FINDINGS: Lungs: Unremarkable. No consolidation. Pleural spaces: Unremarkable. No pleural effusion. No pneumothorax. Heart/Mediastinum: Unremarkable. No cardiomegaly. Bones/joints: Unremarkable. IMPRESSION: No acute findings. Dictated and Authenticated by: Rafa Nye MD. Ordering:ROBERTA Bhatti MD
== END 2023-09-28 12:10 | disposition home or self-care (01) ==
PROVIDERS: Emergency Provider Physician Assistant; PCP Nurse Practitioner Family
DX: U07.1 COVID-19 (principal); B97.4 Respiratory syncytial virus as the cause of diseases classified elsewhere; I48.91 Unspecified atrial fibrillation; Z79.01 Long term (current) use of anticoagulants; Z11.52 Encounter for screening for COVID-19
CPT/HCPCS: 87637; 94640; 99284; 71046; J7512; J7614

== ENCOUNTER → 2023-11-25 04:01 | Outpatient (CLI) | payer MEDICARE, SELFPAY ==
--- NOTE | 2023-11-25 | DI.US_ITS ---
Exam(s) US BREAST RT COMPLETE MG MAMMO DIAGNOSTIC BI EXAM: MG MAMMO DIAGNOSTIC BI AND COMPLETE RIGHT BREAST ULTRASOUND CLINICAL HISTORY: DIAGNOSTIC, MASS RT BREAST, N63.10. TECHNIQUE: BILATERAL CC AND MLO mammographic images were obtained with 3D tomosynthesis technique an d utilizing computer aided detection (CAD). We also performed additional spot compression view over area of clinical concern in the right breast. COMPLETE RIGHT BREAST ULTRASOUND performed including all 4 quadrants, the retroareolar region, and th e right axilla. COMPARISON: Prior mammograms were reviewed, the most recent being . This 63-year-old patient is complaining of a lump which she describes as the size of a marble at appr oximately 10 o'clock position of the right breast. Approximately 1 week ago it was larger and appare ntly the skin in this region was red and area was somewhat painful. She denies having had nipple dis charge and denies puncture wounds, bites, tics. Also denies blunt injury to the breast. FINDINGS: DIAGNOSTIC BILATERAL MAMMOGRAM: There has been no significant change in the appearance and distribution of the fibroglandular tissue of both breasts. There are no new spiculated masses nor malignant-appearing microcalcification groups in either breast . Benign micro and macro calcifications are again noted bilaterally. There is no new architectural distortion or skin thickening-traction. We proceeded to ultrasound... COMPLETE RIGHT BREAST ULTRASOUND: There retroareolar region ducts which are upper normal. At the 10 o'clock position/area of clinical concern there 2 similar appearing 6 x 3 mm findings which have the appearance of probable hemorrhagic microcysts. This is directly over her area of clinical concern. At the 11 o'clock position there few 3 mm benign microcysts noted. There is no generalized tissue edema in the breast. Scanning of the axilla is negative for adenopathy. IMPRESSION: 1. No radiographic/mammographic evidence of malignancy. 2. Benign-appearing findings in the area of clinical concern at 10 o'clock position of the right myron [address]. The above 2 findings in this position are probably hemorrhagic microcysts but given the history here cannot exclude possibly that these may be remnants of a breast infection (patient denies having had a course of antibiotics). Appropriate follow-up is to repeat the right breast imaging in 3 months to follow the 2 findings desc ribed above at the 10 o'clock position of the right breast. Recommend earlier imaging if she feels t hat the finding is getting larger again.. The patient was informed of the findings and follow-up recommendations myself prior to leaving the [facility] today. BI-RADS Category 3 - 3 month - Probably Benign Finding: Recommend follow-up mammography in 3 months Breast Density - Category B - Scattered areas of fibroglandular density Breast density Category C or D implies that the patient has dense breast tissue. Dense breast tissue can make it harder to find cancer on a mammogram. Dense breast tissue is also associated with an incr eased risk of breast cancer. This information about the result of the mammogram report was provided to the patient to raise their awareness. Use this report when you speak with the patient about their risks for breast cancer, which includes their family history. At that time, you may recommend additional screening tests (Ultrasoun d or MRI) as these tests may add significant information. A negative radiographic report should not delay biopsy if a dominant or clinically suspicious mass is present. Up to ten percent of cancers are not identified on mammography. A negative report may reinforce clinical impression. Adenosis and dense breasts may obscure an underlying neoplasm. False positive reports average 6 to 10%. Patient will receive a letter notifying them of these results.
== END ==
PROVIDERS: PCP Nurse Practitioner Family; Visit Provider Nurse Practitioner Family
DX: N63.12 Unspecified lump in the right breast, upper inner quadrant (principal); Z12.31 Encounter for screening mammogram for malignant neoplasm of breast
CPT/HCPCS: 76642; 77062; 77066; G0279

== ENCOUNTER 2023-12-04 20:37 | Outpatient (REF) | payer MEDICARE, SELFPAY ==
[2023-12-08 11:22] LABS: Lyme Ab w Rflx to Lyme Confirm Negative (Negative)
[2023-12-08 19:39] LABS: Anaplasma phagocytophilum Negative (Negative); B. miyamotoi PCR Negative (Negative); Babesia divergens/MO-1 Negative (Negative); Babesia duncani Negative (Negative); Babesia microti Negative (Negative); Ehrlichia chaffeensis Negative (Negative); Ehrlichia ewingii/canis Negative (Negative); Ehrlichia muris eauclairensis Negative (Negative)
== END 2023-12-04 20:38 | disposition home or self-care (01) ==
LOC: NCHCN 20:37
PROVIDERS: PCP Nurse Practitioner Family; Visit Provider Nurse Practitioner Family
DX: M54.17 Radiculopathy, lumbosacral region (principal); Z01.84 Encounter for antibody response examination; Z11.8 Encounter for screening for other infectious and parasitic diseases
CPT/HCPCS: 87798; 86618

== ENCOUNTER → 2023-12-11 00:33 | Outpatient (CLI) | payer MEDICARE, SELFPAY ==
--- NOTE | 2023-12-11 | DI.DEXA_ITS ---
Exam(s) XR DEXA BONE DENSITY W/WO MARYLIN EXAM: XR DEXA BONE DENSITY W/WO MARYLIN CLINICAL HISTORY: Z78.0 Asymptomatic menopausal TECHNIQUE: Hologic Horizon C densitometer analysis of left hip, lumbar spine and left forearm. Lat eral survey image of the thoracic and lumbar spine. COMPARISON: No exams were available for comparison FINDINGS: Lateral view of the thoracic and lumbar spine shows no evidence of compression fractures. Bone mineral density measurements of the lumbar spine correspond to a total T-score of -2.4, in the osteopenic range. Bone mineral density measurements of the left hip correspond to a total T-score of -1.4. The femora l neck T-score is -2.1, in the osteopenic range.. Theleft forearm bone mineral density measurements correspond to a T-score of the distal 3rd of -0.6, in the normal range.. IMPRESSION: Osteopenia of the spine and hip. Normal bone mineral density of the forearm
== END ==
PROVIDERS: PCP Nurse Practitioner Family; Visit Provider Nurse Practitioner Family
DX: Z78.0 Asymptomatic menopausal state (principal); Z13.820 Encounter for screening for osteoporosis; M85.89 Other specified disorders of bone density and structure, multiple sites
CPT/HCPCS: 77080

== ENCOUNTER → 2024-02-10 13:38 | Outpatient (BNVA) | payer MEDICARE, SELFPAY | PROVIDERS: PCP Nurse Practitioner Family; Referring Provider Nurse Practitioner Family; Visit Provider Surgery | DX: K90.0 Celiac disease (principal); K29.70 Gastritis, unspecified, without bleeding; K44.9 Diaphragmatic hernia without obstruction or gangrene | CPT/HCPCS: 99213 ==

== ENCOUNTER 2024-02-20 01:25 | Outpatient (CLI) | payer MEDICARE, SELFPAY ==
[2024-02-24 15:17] LABS: Tissue Transglutaminase Ab IgA <1.2 U/mL (<4.0); Tissue Transglutaminase Ab IgG 2.2 U/mL
== END 2024-02-20 01:26 | disposition home or self-care (01) ==
LOC: LBO 01:26
PROVIDERS: PCP Nurse Practitioner Family; Visit Provider Surgery
DX: K90.0 Celiac disease (principal)
CPT/HCPCS: 36415; 83516

== ENCOUNTER 2024-02-24 02:18 | Outpatient (CLI) | payer MEDICARE, SELFPAY ==
--- NOTE | 2024-02-24 | DI.US_ITS ---
Exam(s) MG MAMMO DIAGNOSTIC UNI US BREAST RT LIMITED EXAM: MG MAMMO DIAGNOSTIC UNI and U/S breast RT limited CLINICAL HISTORY: OTHER BAN AND INCONCLUSIVE FINDINGS ON DIAGNOSTIC IMAGING OF BREAST, R92.8. TECHNIQUE: Craniocaudal and mediolateral oblique Full Field Digital Mammography views of the right b reast with Computer Aided Diagnosis followed by Tomosynthesis and right breast ultrasound. COMPARISON: US US BREAST RT COMPLETE from 11/25/2023 US US BREAST RT LIMITED from 02/24/2024 FINDINGS: Mammography/Tomosynthesis: Masses/Architectural Distortion: There is again seen a well-circumscribed nodule in the inferior aspe ct of the right breast on the MLO view. No new nodules are seen. No areas of architectural distorti on are present. Microcalcifictions: No suspicious pleomorphic-type are seen. Skin Thickening/Nipple Retraction: None. Limited right breast US: Echotexture: Normal appearance of the glandular tissue. Shadowing: No suspicious foci. Cyst: None. Solid lesions: There is and unchanged well-circumscribed ovoid hypoechoic nodule at the 10 o'clock po sition of the right breast 3 cm from the nipple. There is also well-circumscribed hypoechoic nodule at the ellis o'clock position 3 cm from the nipple which appears stable. There is also a hypoechoic nodule at the 7 o'clock position of the right breast 1 cm from the nipple. These all have benign kodi racteristics. No suspicious solid lesions are seen. Ductal dilation: None. IMPRESSION: 1. No definite evidence for malignancy at this time. 2. Unless there is more urgent need, follow-up screening mammography is recommended, as per [place] [employer] guidelines. 3. The findings were discussed with the patient on the date of the examination. BI-RADS Category 2 - Benign Findings Breast Density - Category B - Scattered areas of fibroglandular density Breast density Category C or D implies that the patient has dense breast tissue. Dense breast tissue can make it harder to find cancer on a mammogram. Dense breast tissue is also associated with an incr eased risk of breast cancer. This information about the result of the mammogram report was provided to the patient to raise their awareness. Use this report when you speak with the patient about their risks for breast cancer, which includes their family history. At that time, you may recommend additional screening tests (Ultrasoun d or MRI) as these tests may add significant information. A negative radiographic report should not delay biopsy if a dominant or clinically suspicious mass is present. Up to ten percent of cancers are not identified on mammography. A negative report may reinforce clinical impression. Adenosis and dense breasts may obscure an underlying neoplasm. False positive reports average 6 to 10%. Patient will receive a letter notifying them of these results.
== END 2024-02-24 02:38 ==
LOC: DI 02:18
PROVIDERS: PCP Nurse Practitioner Family; Visit Provider Nurse Practitioner Family
DX: Z12.31 Encounter for screening mammogram for malignant neoplasm of breast (principal); R92.8 Other abnormal and inconclusive findings on diagnostic imaging of breast
CPT/HCPCS: 76642; 77061; 77065; G0279

== ENCOUNTER 2024-02-24 15:47 | Outpatient (REF) | payer MEDICARE, SELFPAY ==
[2024-02-27 12:11] LABS: Helicobacter pylori Ag, Feces Negative (Negative)
== END 2024-02-24 15:48 | disposition home or self-care (01) ==
LOC: LBN 15:47
PROVIDERS: PCP Nurse Practitioner Family; Visit Provider Surgery
DX: K29.70 Gastritis, unspecified, without bleeding (principal)
CPT/HCPCS: 87338

== ENCOUNTER 2024-05-26 10:54 | Observation (INO) | payer MEDICARE, SELFPAY ==
[2024-05-26] VITALS (23 sets, daily range): BP systolic 95–153; BP diastolic 62–94; PULSE 59–75; RESP 11–25; TEMP 35.9–36.8; O2SAT 96–100
--- NOTE | 2024-05-26 11:30 | RT.EKG_ITS ---
APPROVED REPORT Exam: Resting ECG Reason for Exam: Chest pain Patient Location: E HR:66 bpm ECG Measurements Heart Rate 66 AXIS OH 165 P 62 QRSd 67 QRS 55 QT 433 T 5 QTc 454 Conclusion Sinus rhythm...normal P axis, V-rate 60- 99
[2024-05-26 11:47] LABS: Abs Immature Grans 0.05 10^3/uL (0.0-0.06); Absolute Basophil Count 0.03 10^3/uL (0.0-0.2); Absolute Eosinophil Count 0.11 10^3/uL (0.0-0.7); Absolute Lymphocyte Count 2.09 10^3/uL (1.2-3.4); Absolute Monocyte Count 0.63 10^3/uL (0.1-0.8); Absolute Neutrophil Count 4.37 10^3/uL (1.2-6.7); Basophils % 0.4 %; Eosinophils % 1.5 %; HCT 46.5 % (36.0-46.0); HGB 15.7 g/dL (11.2-15.7); Immature Grans % 0.7 %; Lymphocytes % 28.7 %; MCHC 33.8 % (32.0-36.0); MCV 89 fL (80-95); MPV 9.5 fL (8.0-11.0); Monocytes % 8.7 %; Platelet Count 245 10^3/uL (130-400); RBC 5.24 10^6/uL (3.93-5.22); RDW 14.3 % (11.7-14.6); RDW-SD 45.9 fL; WBC 7.28 10^3/uL (4.4-10.8)
[2024-05-26 12:05] LABS: ALT 34 U/L (14-59); AST 20 U/L (15-37); Albumin 3.9 g/dL (3.4-5.0); Alkaline Phosphatase 87 U/L (46-116); Anion Gap 9.1 mmol/L (3-11); BUN 13 mg/dL (7-18); Bilirubin, Total 1.04 mg/dL (0.2-1.0); CO2 26.9 mmol/L (21.0-32.0); CREATININE 1.1 mg/dL (0.55-1.02); Calcium 8.9 mg/dL (8.5-10.1); Chloride 103 mmol/L (98-107); Estimated GFR 55.76 (mL/min/1.73m2); Glucose 107 mg/dL (74-106); Magnesium 1.8 mg/dL (1.8-2.4); Potassium 4.8 mmol/L (3.5-5.1); Sodium 139 mmol/L (136-145); Total Protein 7.3 g/dL (6.4-8.2); Troponin I 6 ng/L (<or=51)
[2024-05-26 13:33] LABS: Troponin I 5 ng/L (<or=51)
--- NOTE | 2024-05-26 13:39 | ED.GENADUL_ITS ---
Discharge Plan Disposition Patient Disposition: Admit to [facility] Condition: Serious Discharge Details Chief Complaint: GenMedical Clinical Impression: Accidental overdose of antihypertensive, Accidental medication overdose Primary Care Provider: Joan Saez ED Provider: Lonnie Govea Home Meds and New Rx's Prescriptions: No Action esomeprazole magnesium 20 mg capsule,delayed release(DR/EC) 20 mg PO DAILY Probiotic 3 billion cell capsule 3,000 mmu cells PO DAILY Rx Instructions: administer with a meal Galzin 50 mg (zinc) capsule 50 mg PO DAILY biotin 5 mg capsule 5 mg PO DAILY spironolactone 50 mg tablet 25 mg PO DAILY bisacodyl [Dulcolax (bisacodyl)] 5 mg tablet,delayed release (DR/EC) 5 mg PO TID potassium chloride 20 mEq tablet extended release 20 meq PO BID acetaminophen [Tylenol Extra Strength] 500 mg tablet 500 mg PO DAILY fluticasone propionate [Flonase Allergy Relief] 50 mcg/actuation [place],Suspension 1 spray INTRANASAL BID ascorbic acid (vitamin C) [Vitamin C] 500 mg Tablet 500 mg PO BID gabapentin 300 mg Capsule 300 mg PO TID magnesium oxide 400 mg magnesium tablet 400 mg PO TID dofetilide [Tikosyn] 125 mcg capsule 125 mcg PO BID diltiazem HCl 60 mg tablet 60 mg PO BID PRN Rx Instructions: take 1 tablet BId as needed for Afib with HR greater than 120 metoprolol tartrate 25 mg tablet 25 mg PO BID montelukast 10 mg tablet 10 mg PO DAILY sucralfate [Carafate] 1 gram tablet 1 g PO QAC Qty: 60 0RF atorvastatin [Lipitor] 10 MG tablet 10 mg PO HS losartan 100 MG tablet 100 mg PO DAILY cholecalciferol (vitamin D3) [Vitamin D3] 2,000 UNIT capsule 1,000 units PO DAILY levalbuterol tartrate [Xopenex HFA] 15 GM HFA aerosol inhaler 2 puff Inhalation Q6H PRN Xarelto 20 MG tablet 20 mg PO DAILY diltiazem HCl 180 mg capsule,extended release 24hr 180 mg PO DAILY Patient Comments: TAKE ONE CAPSULE BY MOUTH EVERY DAY HPI General Mode of arrival: ambulatory . Date/Time Provider Initiated Documentation: 05/26/24 11:11 . Limitations to Documentation: no limitations . Information obtained by: patient . HPI Narrative: 63-year-old female with multiple medical problems including history of atrial fibrillation, hypertension, here with accidental overdose of prescribed medications. Patient notes that she took a initial dose of her a.m. medications around 8 AM and then a second dose around 10 AM. Medications that were double dosed include spironolactone, magnesium oxide, metoprolol succinate, potassium chloride, losartan, omeprazole, Tikosyn, montelukast, Xarelto, Dulcolax. Patient contacted her licensed massage therapist at [facility] [place] who receommend ED assessment. Patient does note that since she is arrived here she has developed some mild left anterior parasternal chest discomfort. She notes she has had similar in the past intermittently. She has no associated shortness of breath, abdominal pain, leg swelling or calf pain. She does note she had a unremarkable cardiac stress test last fall. No known coronary artery disease. Related Data Home Medications ?Medication ?Instructions ?Recorded ?Confirmed atorvastatin 10 mg tablet (Lipitor) 10 mg PO HS 03/19/13 05/26/24 cholecalciferol (vitamin D3) 50 1,000 units PO DAILY 03/19/13 05/26/24 mcg (2,000 unit) capsule (Vitamin D3) losartan 100 mg tablet 100 mg PO DAILY 03/19/13 05/26/24 levalbuterol tartrate 45 2 puff inhalation Q6H PRN 01/27/16 05/26/24 mcg/actuation aerosol inhaler (Xopenex HFA) rivaroxaban 20 mg tablet (Xarelto) 20 mg PO DAILY 01/27/16 05/26/24 acetaminophen 500 mg tablet 500 mg PO DAILY 03/10/18 05/26/24 (Tylenol Extra Strength) bisacodyl 5 mg tablet,delayed 5 mg PO TID 03/10/18 05/26/24 release (Dulcolax (bisacodyl)) potassium chloride 20 mEq 20 meq PO BID 03/10/18 05/26/24 tablet,extended release spironolactone 50 mg tablet 25 mg PO DAILY 03/10/18 05/26/24 fluticasone propionate 50 1 spray intranasal BID 04/28/19 05/26/24 mcg/actuation nasal spray,suspension (Flonase Allergy Relief) magnesium oxide 400 mg PO TID 07/06/19 05/26/24 ascorbic acid (vitamin C) 500 mg 500 mg PO BID 03/08/20 05/26/24 tablet (Vitamin C) gabapentin 300 mg capsule 300 mg PO TID 03/08/20 05/26/24 diltiazem HCl 180 mg 180 mg PO DAILY 09/28/23 05/26/24 capsule,extended release 24 hr diltiazem HCl 60 mg tablet 60 mg PO BID PRN 02/04/24 05/26/24 dofetilide 125 mcg capsule 125 mcg PO BID 02/04/24 05/26/24 (Tikosyn) metoprolol tartrate 25 mg tablet 25 mg PO BID 02/04/24 05/26/24 montelukast 10 mg tablet 10 mg PO DAILY 02/04/24 05/26/24 biotin 5 mg capsule 5 mg PO DAILY 02/10/24 05/26/24 esomeprazole magnesium 20 mg 20 mg PO DAILY 02/10/24 05/26/24 capsule,delayed release lactobacillus combination no.4 3 3,000 mmu cells PO DAILY 02/10/24 05/26/24 billion cell capsule (Probiotic) zinc acetate 50 mg (zinc) capsule 50 mg PO DAILY 02/10/24 05/26/24 (Galzin) sucralfate 1 gram tablet (Carafate) 1 g PO QAC #60 tabs 05/12/24 05/26/24 Previous Rx's ?Medication ?Instructions ?Recorded sucralfate 1 gram tablet (Carafate) 1 g PO QAC #60 tabs 05/12/24 Allergies Allergy/AdvReac Type Severity Reaction Status Date / Time sulfamethoxazole (From Allergy Hives Unverified 05/26/24 11:05 Bactrim) trimethoprim (From Bactrim) Allergy Hives Unverified 05/26/24 11:05 venom-honey bee Allergy Swelling/Ed Unverified 05/26/24 11:05 loki metoprolol AdvReac Mild Cardiac Unverified 05/26/24 11:05 Dysrythmia lisinopril AdvReac pain in Unverified 05/26/24 11:38 side General Stated Complaint: GenMedical MARION: 3 Review of Systems All systems reviewed & are unremarkable except as noted in HPI and below Constitutional Constitutional: Denies fever(s) Cardiovascular Cardiovascular: Reports as per HPI Exam Const General: cooperative and no acute distress HENMT Mouth: moist mucous membranes Eyes Conjunctivae: normal conjunctivae Sclera: normal sclerae EOM: EOM intact bilaterally Resp Auscultation: clear to auscultation bilaterally, no rales, no rhonchi and no wheezes Cardio Rate: regular rate and not tachycardic Rhythm: regular rhythm GI Palpation: soft, not firm, no guarding, no masses, not rigid and nontender Skin General skin exam: no rashes or lesions noted Neuro General: patient alert, patient awake, patient oriented x3 and tone normal Extrem General: no calf tenderness and no edema Psych Appearance: grossly normal Mental Status: mental status grossly normal Course Vital Signs Vital signs: Vital Signs Temperature 36.6 C 05/26/24 11:01 Pulse 75 05/26/24 11:01 Respiratory Rate 15 05/26/24 11:01 Blood Pressure 124/85 05/26/24 11:01 Pulse Oximetry 98 05/26/24 11:01 Temperature 36.6 C 05/26/24 11:19 Temperature Source Oral 05/26/24 11:19 Pulse 64 05/26/24 12:16 Pulse 65 05/26/24 12:16 Respiratory Rate 12 05/26/24 12:16 Respiratory Effort Normal, Non-Labored 05/26/24 11:22 Respiratory Depth Normal 05/26/24 11:22 Respiratory Pattern Normal 05/26/24 11:22 Blood Pressure 111/72 05/26/24 12:16 Blood Pressure Mean 81 05/26/24 12:16 Blood Pressure Position Supine 05/26/24 11:19 Pulse Oximetry 96 05/26/24 12:16 Oxygen Delivery Method Room Air 05/26/24 11:19 Oxygen Flow Rate 0 05/26/24 11:01 Lab/Test Results Lab/Test Results: Laboratory Tests Range/Units 05/26/24 05/26/24 11:39 13:07 WBC (4.4-10.8) 10^3/uL 7.28 RBC (3.93-5.22) 10^6/uL 5.24 H Hgb (11.2-15.7) g/dL 15.7 Hct (36.0-46.0) % 46.5 H MCV (80-95) fL 89 MCH (27.0-33.0) pg 30.0 MCHC (32.0-36.0) % 33.8 RDW (11.7-14.6) % 14.3 Plt Count (130-400) 10^3/uL 245 MPV (8.0-11.0) fL 9.5 Immature Gran % % 0.7 Neutrophils % % 60.0 Lymphocytes % % 28.7 Monocytes % % 8.7 Eosinophils % % 1.5 Basophils % % 0.4 Nucleated RBC % (0.0-0.3) % 0.0 Absolute Neutrophils (1.2-6.7) 10^3/uL 4.37 Absolute Lymphocytes (1.2-3.4) 10^3/uL 2.09 Absolute Monocytes (0.1-0.8) 10^3/uL 0.63 Absolute Eosinophils (0.0-0.7) 10^3/uL 0.11 Absolute Basophils (0.0-0.2) 10^3/uL 0.03 Sodium (136-145) mmol/L 139 Potassium (3.5-5.1) mmol/L 4.8 Chloride (98-107) mmol/L 103 Carbon Dioxide (21.0-32.0) mmol/L 26.9 Anion Gap (3-11) mmol/L 9.1 BUN (7-18) mg/dL 13 Creatinine (0.55-1.02) mg/dL 1.1 H Est GFR (CKD-EPI 2020) (mL/min/1.73m2) 55.76 Glucose (74-106) mg/dL 107 H Calcium (8.5-10.1) mg/dL 8.9 Magnesium (1.8-2.4) mg/dL 1.8 Total Bilirubin (0.2-1.0) mg/dL 1.04 H AST (15-37) U/L 20 ALT (14-59) U/L 34 Alkaline Phosphatase (46-116) U/L 87 Troponin I (<or=51) ng/L 6 5 Total Protein (6.4-8.2) g/dL 7.3 Albumin (3.4-5.0) g/dL 3.9 Medical Decision Making [id number] --63-year-old female with history of hypertension, A-fib, on flecainide, Xarelto and multiple antihypertensives, presents today with concern that she double dosed her a.m. medications including spironolactone, metoprolol succinate, losartan, Tikosyn, and Xarelto. Consider ACS given chest discomfort. EKG was reviewed and interpreted by me: Please see report, sinus rhythm 66 bpm. Initial labs reviewed and troponin negative. Delta troponin negative. I am concerned given multiple antihypertensives and antiarrhythmic that patient may develop hypotension or arrhythmia although there has been no indication of this during her ED course. Plan to hospitalize for further observation. I called and spoke with the hospitalist, Dr. Emerson, discussed ED presentation and course, he will admit the patient for observation. Lab Data Lab results reviewed: Yes I reviewed the patient's lab results. Labs: Laboratory Tests Range/Units 05/26/24 05/26/24 11:39 13:07 WBC (4.4-10.8) 10^3/uL 7.28 RBC (3.93-5.22) 10^6/uL 5.24 H Hgb (11.2-15.7) g/dL 15.7 Hct (36.0-46.0) % 46.5 H MCV (80-95) fL 89 MCH (27.0-33.0) pg 30.0 MCHC (32.0-36.0) % 33.8 RDW (11.7-14.6) % 14.3 Plt Count (130-400) 10^3/uL 245 MPV (8.0-11.0) fL 9.5 Immature Gran % % 0.7 Neutrophils % % 60.0 Lymphocytes % % 28.7 Monocytes % % 8.7 Eosinophils % % 1.5 Basophils % % 0.4 Nucleated RBC % (0.0-0.3) % 0.0 Absolute Neutrophils (1.2-6.7) 10^3/uL 4.37 Absolute Lymphocytes (1.2-3.4) 10^3/uL 2.09 Absolute Monocytes (0.1-0.8) 10^3/uL 0.63 Absolute Eosinophils (0.0-0.7) 10^3/uL 0.11 Absolute Basophils (0.0-0.2) 10^3/uL 0.03 Sodium (136-145) mmol/L 139 Potassium (3.5-5.1) mmol/L 4.8 Chloride (98-107) mmol/L 103 Carbon Dioxide (21.0-32.0) mmol/L 26.9 Anion Gap (3-11) mmol/L 9.1 BUN (7-18) mg/dL 13 Creatinine (0.55-1.02) mg/dL 1.1 H Est GFR (CKD-EPI 2020) (mL/min/1.73m2) 55.76 Glucose (74-106) mg/dL 107 H Calcium (8.5-10.1) mg/dL 8.9 Magnesium (1.8-2.4) mg/dL 1.8 Total Bilirubin (0.2-1.0) mg/dL 1.04 H AST (15-37) U/L 20 ALT (14-59) U/L 34 Alkaline Phosphatase (46-116) U/L 87 Troponin I (<or=51) ng/L 6 5 Total Protein (6.4-8.2) g/dL 7.3 Albumin (3.4-5.0) g/dL 3.9 Quality:SDOH Health Related Social Needs: No Data to Display PFSH All Active Problems (Updated 05/26/24 @ 13:49 by Lonnie Govea MD) Accidental medication overdose (Acute) Accidental overdose of antihypertensive (Acute) Chronic cough (Acute) Mass of right breast (Acute) Fatigue (Acute) COVID (Acute) Achilles tendinosis of right lower extremity (Acute) UTI (urinary tract infection) (Acute) Atrial fibrillation with RVR (Acute) Migraine headache without aura (Acute) Migraine headache with aura (Acute) Lesion of lip (Acute) Arthralgia (Acute) Chronic back pain (Chronic) Chronic headaches (Chronic) Atrial fibrillation (Chronic) Medical History Basal cell carcinoma of skin left upper back Dysuria Screening mammogram, encounter for Preventative health care GERD (gastroesophageal reflux disease) Tension headache Anxiety Solar lentigo Lactose intolerance Abdominal pain, epigastric Paresthesia Aphasia H/O measles Heel spur Skin lesion of face Menopausal syndrome (hot flashes) Seasonal allergies Dysphagia Hyperlipidemia Grief reaction Surgical History H/O esophagogastroduodenoscopy H/O cardiac radiofrequency ablation Achilles tendon tear both repaired here. Social History Smoking/Tobacco Use Status: Never Smoking risk assessment performed?: Yes Alcohol Intake: current Alcohol Intake frequency: a few times a week Alcohol type: hard liquor Drug use: Never Substance use type: does not use Household members: spouse Housing: house Number of Children: 2 current occupation: Retired teacher What is your relationship status?: Panel score (0-1 are the most socially isolated patients): 1 What type of physical activity do you participate in: walking, independent ambulation and additional Details: barn chores and stretches with kids at school Frequency: daily Do you feel safe at home: Yes Do you feel safe in your relationship?: Yes PAWSS Have you Been Recently Intoxicated or Drunk Within the Last 30 days?: No Have you Ever Experienced Previous Episodes of Alcohol Withdrawal?: No Have you ever Experienced Withdrawal Seizures?: No Have you ever Experienced Delirium Tremens(DT)s?: No Have you ever undergone Alcohol Rehabilitation Treatment (i.e, inpt ot outpatient treatment programs)?: No Have you ever Experienced Blackouts?: No Have you ever Combined Alcohol with other Downers within the last 90 days?: No Have you ever Combined Alcohol with any other Substance of Abuse during the last 90 days?: No Positive Blood Alcohol level on Presentation? [PCS.BAL]: No Evidence of Increased Autonomic Activity (i.e. HR>120, tremor, sweating, agitation, nausea)?: No Result: 0
--- NOTE | 2024-05-26 14:11 | W.PM.HP.N ---
Date of service: 05/26/24 Time of Service: 14:11 Assessment and Plan Assessment and plan (1) Atrial fibrillation: Status: Chronic Assessment and plan: Patient is on metoprolol tartrate, Tikosyn, Xarelto, and Cardizem. I am holding these meds tonight as she double dose today restart in the a.m. Considering the fact the patient took double dose of her Xarelto we will not start her on any DVT prophylaxis but just restart her Xarelto in the a.m. (2) HTN (hypertension): Status: None Assessment and plan: As above. Blood pressure is currently 111/72 (3) Accidental medication overdose: Status: Acute Assessment and plan: As above. Imagine the patient will most likely be able to discharge in a.m. if no events occur over the night. History of Present Illness History of Present Illness Chief Complaint: I accidentally took my meds twice Narrative: This is a 63-year-old female with a known history of hypertension and atrial fibrillation who excellently took her medications twice this morning. She did discuss this with her reinsurance claim analyst Dr. Bunn who recommended she come into the ED for evaluation. Upon evaluation in the ED he was noted to have low normal heart rate in the low 60s and considering the fact that she took beta-blockers as well as antiarrhythmics the decision to monitor overnight was made. Upon my interview with the patient she reiterates his history and states that right now she is feeling fine. Patient states that she has had 3 ablations secondary to A-fib and still has paroxysmal A-fib. PFSH All Active Problems (Updated 05/26/24 @ 13:49 by Lonnie Govea MD) Accidental medication overdose (Acute) Accidental overdose of antihypertensive (Acute) Chronic cough (Acute) Mass of right breast (Acute) Fatigue (Acute) COVID (Acute) Achilles tendinosis of right lower extremity (Acute) UTI (urinary tract infection) (Acute) Atrial fibrillation with RVR (Acute) Migraine headache without aura (Acute) Migraine headache with aura (Acute) Lesion of lip (Acute) Arthralgia (Acute) Chronic back pain (Chronic) Chronic headaches (Chronic) Atrial fibrillation (Chronic) Medical History Basal cell carcinoma of skin left upper back Dysuria Screening mammogram, encounter for Preventative health care GERD (gastroesophageal reflux disease) Tension headache Anxiety Solar lentigo Lactose intolerance Abdominal pain, epigastric Paresthesia Aphasia H/O measles Heel spur Skin lesion of face Menopausal syndrome (hot flashes) Seasonal allergies Dysphagia Hyperlipidemia Grief reaction Surgical History H/O esophagogastroduodenoscopy H/O cardiac radiofrequency ablation Achilles tendon tear both repaired here. Social History Smoking/Tobacco Use Status: Never Smoking risk assessment performed?: Yes Alcohol Intake: current Alcohol Intake frequency: a few times a week Alcohol type: hard liquor Drug use: Never Substance use type: does not use Household members: spouse Housing: house Number of Children: 2 current occupation: Retired teacher What is your relationship status?: Panel score (0-1 are the most socially isolated patients): 1 What type of physical activity do you participate in: walking, independent ambulation and additional Details: barn chores and stretches with kids at school Frequency: daily Do you feel safe at home: Yes Do you feel safe in your relationship?: Yes Meds Allergies and Home Medications Allergies Allergy/AdvReac Type Severity Reaction Status Date / Time sulfamethoxazole (From Allergy Hives Unverified 05/26/24 11:05 Bactrim) trimethoprim (From Bactrim) Allergy Hives Unverified 05/26/24 11:05 venom-honey bee Allergy Swelling/Ed Unverified 05/26/24 11:05 loki metoprolol AdvReac Mild Cardiac Unverified 05/26/24 11:05 Dysrythmia lisinopril AdvReac pain in Unverified 05/26/24 11:38 side Home Medications ?Medication ?Instructions ?Recorded ?Confirmed ?Type atorvastatin 10 mg tablet (Lipitor) 10 mg PO HS 03/19/13 05/26/24 History cholecalciferol (vitamin D3) 50 1,000 units PO DAILY 03/19/13 05/26/24 History mcg (2,000 unit) capsule (Vitamin D3) losartan 100 mg tablet 100 mg PO DAILY 03/19/13 05/26/24 History levalbuterol tartrate 45 2 puff inhalation Q6H PRN 01/27/16 05/26/24 History mcg/actuation aerosol inhaler (Xopenex HFA) rivaroxaban 20 mg tablet (Xarelto) 20 mg PO DAILY 01/27/16 05/26/24 History acetaminophen 500 mg tablet 500 mg PO DAILY 03/10/18 05/26/24 History (Tylenol Extra Strength) bisacodyl 5 mg tablet,delayed 5 mg PO TID 03/10/18 05/26/24 History release (Dulcolax (bisacodyl)) potassium chloride 20 mEq 20 meq PO BID 03/10/18 05/26/24 History tablet,extended release spironolactone 50 mg tablet 25 mg PO DAILY 03/10/18 05/26/24 History fluticasone propionate 50 1 spray intranasal BID 04/28/19 05/26/24 History mcg/actuation nasal spray,suspension (Flonase Allergy Relief) magnesium oxide 400 mg PO TID 07/06/19 05/26/24 History ascorbic acid (vitamin C) 500 mg 500 mg PO BID 03/08/20 05/26/24 History tablet (Vitamin C) gabapentin 300 mg capsule 300 mg PO TID 03/08/20 05/26/24 History diltiazem HCl 180 mg 180 mg PO DAILY 09/28/23 05/26/24 History capsule,extended release 24 hr diltiazem HCl 60 mg tablet 60 mg PO BID PRN 02/04/24 05/26/24 History dofetilide 125 mcg capsule 125 mcg PO BID 02/04/24 05/26/24 History (Tikosyn) metoprolol tartrate 25 mg tablet 25 mg PO BID 02/04/24 05/26/24 History montelukast 10 mg tablet 10 mg PO DAILY 02/04/24 05/26/24 History biotin 5 mg capsule 5 mg PO DAILY 02/10/24 05/26/24 History esomeprazole magnesium 20 mg 20 mg PO DAILY 02/10/24 05/26/24 History capsule,delayed release lactobacillus combination no.4 3 3,000 mmu cells PO DAILY 02/10/24 05/26/24 History billion cell capsule (Probiotic) zinc acetate 50 mg (zinc) capsule 50 mg PO DAILY 02/10/24 05/26/24 History (Galzin) sucralfate 1 gram tablet (Carafate) 1 g PO QAC #60 tabs 05/12/24 05/26/24 Rx Exam Narrative Exam Narrative: Head eyes ears nose and throat: Normocephalic atraumatic mucous membranes moist oropharynx clear extraocular motions are intact Neck: No lymphadenopathy no JVD no thyromegaly Cardiovascular: Regular rate and rhythm no murmur rubs or gallops Lungs: Clear to auscultation bilaterally with good air exchange no accessory muscle use Abdomen: Soft nontender nondistended bowel sounds active Extremity: No sinus clubbing or edema bilaterally Neurologic: Cranial nerves II through XII intact as tested reflexes in upper extremity normal as tested Psych: Alert and oriented x 3 General: 63-year-old female appears her stated age in no apparent distress response to verbal stimuli appropriately Results Labs 05/26/24 11:39 05/26/24 11:39 Labs: Laboratory Results - last 24 hr 05/26/24 05/26/24 11:39 13:07 WBC 7.28 RBC 5.24 H Hgb 15.7 Hct 46.5 H MCV 89 MCH 30.0 MCHC 33.8 RDW 14.3 Plt Count 245 MPV 9.5 Immature Gran % 0.7 Neutrophils % 60.0 Lymphocytes % 28.7 Monocytes % 8.7 Eosinophils % 1.5 Basophils % 0.4 Nucleated RBC % 0.0 Absolute Neutrophils 4.37 Absolute Lymphocytes 2.09 Absolute Monocytes 0.63 Absolute Eosinophils 0.11 Absolute Basophils 0.03 Sodium 139 Potassium 4.8 Chloride 103 Carbon Dioxide 26.9 Anion Gap 9.1 BUN 13 Creatinine 1.1 H Est GFR (CKD-EPI 2020) 55.76 Glucose 107 H Calcium 8.9 Magnesium 1.8 Total Bilirubin 1.04 H AST 20 ALT 34 Alkaline Phosphatase 87 Troponin I 6 5 Total Protein 7.3 Albumin 3.9 Last Vital Signs Temp 36.6 C 05/26/24 11:19 Pulse 66 05/26/24 14:01 Resp 14 05/26/24 14:01 BP 151/89 H 05/26/24 14:01 Pulse Ox 98 05/26/24 14:01 PAWSS Have you Been Recently Intoxicated or Drunk Within the Last 30 days?: No Have you Ever Experienced Previous Episodes of Alcohol Withdrawal?: No Have you ever Experienced Withdrawal Seizures?: No Have you ever Experienced Delirium Tremens(DT)s?: No Have you ever undergone Alcohol Rehabilitation Treatment (i.e, inpt ot outpatient treatment programs)?: No Have you ever Experienced Blackouts?: No Have you ever Combined Alcohol with other Downers within the last 90 days?: No Have you ever Combined Alcohol with any other Substance of Abuse during the last 90 days?: No Positive Blood Alcohol level on Presentation? [PCS.BAL]: No Evidence of Increased Autonomic Activity (i.e. HR>120, tremor, sweating, agitation, nausea)?: No Result: 0 Time Spent Time spent with Patient: 40-54 minutes Time was spent: preparing to see the patient(eg.review tests), obtaining and/or reviewing separately otained hiistory, ordering medications,tests, procedures, referring, communicating with other health long term care pharmacist, indepentently interpreting results, counseling the patient and care coordination
--- NOTE | 2024-05-26 16:27 | W.PC.ACHO ---
Registration Status: Primary Language: Preferred Language: ED Information & Data Chief Complaint GenMedical 05/26/24 13:49 Triage Note Reports she took all of her 05/26/24 11:01 prescribed meds twice today. PT took her AM meds at 0750 and another set of her AM meds at 1005. PT concerned about potential side effects of taking her meds at the wrong time, especially her blood pressure meds. Medical / Surgical History (Last Reviewed 05/26/24 @ 13:44 by Lonnie Govea MD) Basal cell carcinoma of skin Dysuria Screening mammogram, encounter for Preventative health care GERD (gastroesophageal reflux disease) Tension headache Anxiety Solar lentigo Lactose intolerance Abdominal pain, epigastric Paresthesia Aphasia H/O measles Heel spur Skin lesion of face Menopausal syndrome (hot flashes) Seasonal allergies Dysphagia Hyperlipidemia Grief reaction (Last Reviewed 05/26/24 @ 13:44 by Lonnie Govea MD) H/O esophagogastroduodenoscopy H/O cardiac radiofrequency ablation Achilles tendon tear Most Recent Vital Signs Temperature 36.3 C L 05/26/24 15:55 Temperature Source Temporal Artery Scan 05/26/24 15:55 Pulse 65 05/26/24 15:55 Pulse 69 05/26/24 15:01 Respiratory Rate 16 05/26/24 15:55 Respiratory Effort Normal 05/26/24 15:35 Respiratory Depth Normal 05/26/24 15:35 Respiratory Pattern Normal 05/26/24 15:35 Blood Pressure 112/84 05/26/24 15:55 Blood Pressure Mean 91 05/26/24 15:01 Blood Pressure Position Supine 05/26/24 11:19 Pulse Oximetry 100 05/26/24 15:55 Oxygen Delivery Method Room Air 05/26/24 15:55 Oxygen Flow Rate 0 05/26/24 15:55 Pain Level 0 05/26/24 15:55 Allergies sulfamethoxazole (From Bactrim) Allergy (Unverified 05/26/24 11:05) Hives trimethoprim (From Bactrim) Allergy (Unverified 05/26/24 11:05) Hives venom-honey bee Allergy (Unverified 05/26/24 11:05) Swelling/Edema metoprolol Adverse Reaction (Mild, Unverified 05/26/24 11:05) Cardiac Dysrythmia lisinopril Adverse Reaction (Unverified 05/26/24 11:38) pain in side IV IV Catheter Type [Left Saline Lock Antecubital] IV Catheter Gauge [Left 20 Antecubital] Diet Orders Category Date Time Status Heart Healthy Eating [DIET] Nutrition 05/26/24 Dinner Active Diagnostics 05/26/24 05/26/24 05/26/24 Range/Units 16:18 13:07 11:39 WBC 7.28 (4.4-10.8) 10^3/uL RBC 5.24 H (3.93-5.22) 10^6/uL Hgb 15.7 (11.2-15.7) g/dL Hct 46.5 H (36.0-46.0) % MCV 89 (80-95) fL MCH 30.0 (27.0-33.0) pg MCHC 33.8 (32.0-36.0) % RDW 14.3 (11.7-14.6) % Plt Count 245 (130-400) 10^3/uL MPV 9.5 (8.0-11.0) fL Immature Gran % 0.7 % Neutrophils % 60.0 % Lymphocytes % 28.7 % Monocytes % 8.7 % Eosinophils % 1.5 % Basophils % 0.4 % Nucleated RBC % 0.0 (0.0-0.3) % Absolute Neutrophils 4.37 (1.2-6.7) 10^3/uL Absolute Lymphocytes 2.09 (1.2-3.4) 10^3/uL Absolute Monocytes 0.63 (0.1-0.8) 10^3/uL Absolute Eosinophils 0.11 (0.0-0.7) 10^3/uL Absolute Basophils 0.03 (0.0-0.2) 10^3/uL Sodium 139 (136-145) mmol/L Potassium 4.8 (3.5-5.1) mmol/L Chloride 103 (98-107) mmol/L Carbon Dioxide 26.9 (21.0-32.0) mmol/L Anion Gap 9.1 (3-11) mmol/L BUN 13 (7-18) mg/dL Creatinine 1.1 H (0.55-1.02) mg/dL Est GFR (CKD-EPI 2020) 55.76 (mL/min/1.73m2) Glucose 107 H (74-106) mg/dL Calcium 8.9 (8.5-10.1) mg/dL Magnesium 1.8 (1.8-2.4) mg/dL Total Bilirubin 1.04 H (0.2-1.0) mg/dL AST 20 (15-37) U/L ALT 34 (14-59) U/L Alkaline Phosphatase 87 (46-116) U/L Troponin I Pending 5 6 (<or=51) ng/L Total Protein 7.3 (6.4-8.2) g/dL Albumin 3.9 (3.4-5.0) g/dL Intake and Output - 24 Hour Total 05/26/24 10:54 thru 05/26/24 15:35 Intake Total 10 Balance 10 Weight 96.162 kg Intake: IV 10 Other: Urine Appearance Clear # Voids 1 Falls Risk Assessment History of Falls No History 05/26/24 15:35 Contributing Factors No Factors 05/26/24 15:35 Ambulatory Aids Independent 05/26/24 15:35 Tubes/Lines None 05/26/24 15:35 Gait Evaluation No gait disturbance 05/26/24 15:35 Cognition No cognitive impairment 05/26/24 15:35 Fall Total Score 0 05/26/24 15:35 Level of Risk Standard/Low Risk 05/26/24 15:35 Problems (Last Reviewed 05/26/24 @ 13:44 by Lonnie Govea MD) Accidental medication overdose (Acute) Accidental overdose of antihypertensive (Acute) Atrial fibrillation (Chronic) v v v v v v v v v Sending and/or Receiving Nurses: Please use comment section below to note any information pertinent to the patient hand-off not included above. Information / Comments: Report received from: PRITESH Gilmore (Emergency Dept.)
[2024-05-26 16:45] LABS: Troponin I 4 ng/L (<or=51)
[2024-05-26] MEDS: Gabapentin 300 MG CAP PO (22:12)
[2024-05-26] MEDS: Melatonin 3 MG TAB 9 MG PO (22:12)
[2024-05-26] MEDS: Normal Saline Flush 10 ML SYR IVP (22:13)
[2024-05-26] MEDS: Fluticasone NASAL SPRAY 16 GM BTL NS (23:57)
[2024-05-27 03:18] VITALS: BP 114/78; PULSE 63; RESP 17; TEMP 36.6; O2SAT 98
[2024-05-27 08:21] VITALS: BP 130/84; PULSE 67; RESP 23; TEMP 37.8; O2SAT 99
[2024-05-27] MEDS: Normal Saline Flush 10 ML SYR IVP (08:28)
[2024-05-27] MEDS: Lactobacillus Acidophilus CAP 1 CAP PO (08:31)
[2024-05-27] MEDS: Montelukast 10 MG TAB PO (08:32)
[2024-05-27] MEDS: Losartan 50 MG TAB 100 MG PO (08:33)
[2024-05-27] MEDS: Potassium Chloride 20 MEQ TABCR PO (08:34)
[2024-05-27] MEDS: Spironolactone 50 MG TAB 25 MG PO (08:35)
[2024-05-27] MEDS: Sucralfate 1 GM TAB PO (08:53)
[2024-05-27] MEDS: Metoprolol 12.5 MG TAB PO (09:30)
[2024-05-27] MEDS: Magnesium Oxide 400 MG TAB PO (09:30)
--- NOTE | 2024-05-27 09:31 | W.PM.DS.N ---
Date of service: 05/27/24 Time of Service: 09:42 DS: Diagnosis Discharge Diagnosis (1) Atrial fibrillation: Status: Chronic (2) HTN (hypertension): Status: None (3) Accidental medication overdose: Status: Acute Discharge Plan Disposition Patient Disposition: Home Condition: Good Discharge Details Reason For Visit: Accidental Overdose Admit Date/Time: 05/26/24 14:06 Admit Provider: Can Emerson Attending Provider: Can Emerson Primary Care Provider: Joan Saez [facility] Course Hospital Course: Patient initially presented to the emergency department the request of her artificial stone applicator after patient accidentally doubled up on her metoprolol diltiazem and dofetilide. Patient had no symptoms or complaints, and telemetry did not show any bradycardia or other arrhythmias. Patient had her usual medication regimen restarted on the morning of 05/27/2024, and ultimately was determined that she was stable for discharge home. Home Meds and New Rx's Prescriptions: Continued esomeprazole magnesium 20 mg capsule,delayed release(DR/EC) 20 mg PO DAILY Probiotic 3 billion cell capsule 3,000 mmu cells PO DAILY Rx Instructions: administer with a meal Galzin 50 mg (zinc) capsule 50 mg PO DAILY biotin 5 mg capsule 5 mg PO DAILY spironolactone 50 mg tablet 25 mg PO DAILY bisacodyl [Dulcolax (bisacodyl)] 5 mg tablet,delayed release (DR/EC) 5 mg PO TID potassium chloride 20 mEq tablet extended release 20 meq PO BID acetaminophen [Tylenol Extra Strength] 500 mg tablet 500 mg PO DAILY fluticasone propionate [Flonase Allergy Relief] 50 mcg/actuation [place],Suspension 1 spray INTRANASAL BID ascorbic acid (vitamin C) [Vitamin C] 500 mg Tablet 500 mg PO BID gabapentin 300 mg Capsule 300 mg PO TID magnesium oxide 400 mg magnesium tablet 400 mg PO TID dofetilide [Tikosyn] 125 mcg capsule 125 mcg PO BID diltiazem HCl 60 mg tablet 60 mg PO BID PRN Rx Instructions: take 1 tablet BId as needed for Afib with HR greater than 120 metoprolol tartrate 25 mg tablet 25 mg PO BID Patient Comments: takes 12.5 mg orally twice a day montelukast 10 mg tablet 10 mg PO DAILY sucralfate [Carafate] 1 gram tablet 1 g PO QAC Qty: 60 0RF atorvastatin [Lipitor] 10 MG tablet 10 mg PO HS losartan 100 MG tablet 100 mg PO DAILY cholecalciferol (vitamin D3) [Vitamin D3] 2,000 UNIT capsule 1,000 units PO DAILY levalbuterol tartrate [Xopenex HFA] 15 GM HFA aerosol inhaler 2 puff Inhalation Q6H PRN Xarelto 20 MG tablet 20 mg PO DAILY Patient Comments: please take after dinner diltiazem HCl 180 mg capsule,extended release 24hr 180 mg PO DAILY Patient Comments: TAKE ONE CAPSULE BY MOUTH EVERY DAY Discharge Instructions Activity:: Activity as Tolerated Equipment/Supplies:: No Equipment Needed Diet:: As Tolerated Discharge Orders Discharge Orders: Discharge Order (Routine); Ordered 05/27/24 Ordered By: Nimesh Colbert DS: Summary Time Spent with Patient providing and/or coordinating discharge services: Greater than 30 minutes Status at Discharge Functional status at discharge: independent ambulation Overall status at discharge: patient is back to baseline Mental Status: mental status grossly normal Speech and Movement: speech and movement normal Mood: congruent mood Affect: normal affect Quality:SDOH Health Related Social Needs: No Data to Display Exam Narrative Exam Narrative: well appearing female sitting up in the rafaela in no acute distress, AOx4, heart RRR, lungs CTAB, abdomen soft, non-tender, non-distended Psych Mental Status: mental status grossly normal Speech and Movement: speech and movement normal Mood: congruent mood Affect: normal affect DS: Data Vitals/I&O Vitals and I&O: Vital Signs Temperature 100.0 F H 05/27/24 08:21 Temperature Source Temporal Artery Scan 05/27/24 08:21 Pulse 67 05/27/24 08:21 Pulse 69 05/26/24 15:01 Respiratory Rate 23 05/27/24 08:21 Respiratory Effort Normal 05/26/24 15:35 Respiratory Depth Normal 05/26/24 15:35 Respiratory Pattern Normal 05/26/24 15:35 Blood Pressure 130/84 05/27/24 08:21 Blood Pressure Mean 91 05/26/24 15:01 Blood Pressure Position Supine 05/26/24 11:19 Pulse Oximetry 99 05/27/24 08:21 Oxygen Delivery Method Room Air 05/27/24 08:21 Oxygen Flow Rate 0 05/27/24 08:21 Pain Level 0 05/27/24 08:00 Comment Nurse notified 05/26/24 22:45 Intake & Output 05/26/24 05/27/24 05/27/24 17:59 05:59 17:59 Intake Total Balance Weight 212 lb Intake: IV Other: Urine Color Yellow Urine Appearance Clear Urine Odor Normal # Voids 1 Data Completed and Pending Labs on day of discharge: Labs from last 24 hours 05/26/24 05/26/24 05/26/24 16:18 13:07 11:39 WBC 7.28 RBC 5.24 H Hgb 15.7 Hct 46.5 H MCV 89 MCH 30.0 MCHC 33.8 RDW 14.3 Plt Count 245 MPV 9.5 Immature Gran % 0.7 Neutrophils % 60.0 Lymphocytes % 28.7 Monocytes % 8.7 Eosinophils % 1.5 Basophils % 0.4 Nucleated RBC % 0.0 Absolute Neutrophils 4.37 Absolute Lymphocytes 2.09 Absolute Monocytes 0.63 Absolute Eosinophils 0.11 Absolute Basophils 0.03 Sodium 139 Potassium 4.8 Chloride 103 Carbon Dioxide 26.9 Anion Gap 9.1 BUN 13 Creatinine 1.1 H Est GFR (CKD-EPI 2020) 55.76 Glucose 107 H Calcium 8.9 Magnesium 1.8 Total Bilirubin 1.04 H AST 20 ALT 34 Alkaline Phosphatase 87 Troponin I 4 5 6 Total Protein 7.3 Albumin 3.9 PFSH All Active Problems (Updated 05/26/24 @ 13:49 by Lonnie Govea MD) Accidental medication overdose (Acute) Accidental overdose of antihypertensive (Acute) Chronic cough (Acute) Mass of right breast (Acute) Fatigue (Acute) COVID (Acute) Achilles tendinosis of right lower extremity (Acute) UTI (urinary tract infection) (Acute) Atrial fibrillation with RVR (Acute) Migraine headache without aura (Acute) Migraine headache with aura (Acute) Lesion of lip (Acute) Arthralgia (Acute) Chronic back pain (Chronic) Chronic headaches (Chronic) Atrial fibrillation (Chronic) Medical History Basal cell carcinoma of skin left upper back Dysuria Screening mammogram, encounter for Preventative health care GERD (gastroesophageal reflux disease) Tension headache Anxiety Solar lentigo Lactose intolerance Abdominal pain, epigastric Paresthesia Aphasia H/O measles Heel spur Skin lesion of face Menopausal syndrome (hot flashes) Seasonal allergies Dysphagia Hyperlipidemia Grief reaction Surgical History H/O esophagogastroduodenoscopy H/O cardiac radiofrequency ablation Achilles tendon tear both repaired here. Social History Smoking/Tobacco Use Status: Never Smoking risk assessment performed?: Yes Alcohol Intake: current Alcohol Intake frequency: a few times a week Alcohol type: hard liquor Drug use: Never Substance use type: does not use Household members: spouse Housing: house Number of Children: 2 current occupation: Retired teacher What is your relationship status?: Panel score (0-1 are the most socially isolated patients): 1 What type of physical activity do you participate in: walking, independent ambulation and additional Details: barn chores and stretches with kids at school Frequency: daily Do you feel safe at home: Yes Do you feel safe in your relationship?: Yes Time Spent with Patient Time Spent with Patient: <45 minutes Time was spent: preparing to see the patient(eg.review tests), obtaining and/or reviewing separately otained hiistory, ordering medications,tests, procedures, referring, communicating with other health acute care nurse practitioner, indepentently interpreting results, counseling the patient and care coordination
--- NOTE | 2024-05-27 10:06 | PDOC.CMIN ---
Date of service: 05/27/24 Time of Service: 10:07 Care Management Initial Assmt Initial Assessment Reason for Hospitalization: accidental double ingestion of her daily morning meds Functional Status/Living Situation Patient Presentation: Yen has not been sleeping well, and yesterday her morning routine was off. She took her am meds x2, and realized it almost immediately. She really did not have any symptoms, but she had called her green material value added assessor and it was recommended she go to the ED for observation. This morning, Yen was up in the chair. She looked well and easily conversed with . She stated the above, and stated, I feel so stupid. She does keep a medication box, and is usually good about her meds. She knows she needs t o be careful as she has a long cardiac history, and has lost 7 young people in the last year. Town of Residence: [place] Resides with: Spouse (, Lonnie) Significant Other/Family: Local (Daughter Gayatri lives locally. Also has a son, Asif, with whom she keeps close contact.) Employment Status: Unemployed Instrumental Activities of Daily Living (ADLs): Independent Activities/Hobbies/SocialSupport: Has a horse, whom she loves and cares for. Her family is very important and close knit Medications Medication Management: Issues/Barriers with Other (Mostly doing ok with her meds. Did have this mistake that caused the admission. Yen is aware she needs to be more careful.) Advance Directives Advance Directives: Do you have an Advance Directive: N 04/29/17 17:42 AD On File at [facility]: N 04/29/17 17:42 Date Asked 05/26/24 05/26/24 11:09 AD Date Reviewed COLST On File at [facility] COLST Date Scanned Comment: Yen is hesitant about filling out her advanced directives. She is not really sure what her wishes are. She declined a blank AD for review. CM encouraged Yen to reach out to her PCP for assistance. Code Status Resuscitation Status Full Code Portal Pt does not currently have a portal and education provided: No Insurance Coverage/Financial Issues Insurance: BC/BS medicare advantage Financial Issues: denies Care Team Visit Care Team Role Provider Type Joan Saez Primary Care Provider ADV PRACTICE REGISTERED NURSE Lonnie Govea MD Emergency Provider [facility] STAFF PHYSICIAN Can Emerson MD Admit Provider [facility] STAFF PHYSICIAN Attending Provider Discharge Potential Discharge Needs: PCP F/U Appt (Appt scheduled for 06/03) and Other Anticipated Barriers to Discharge: None Identified Patient/Family Education Needs: Review discharge instructions, discuss Ask Me Three Transportation: Private vehicle (with her , Lonnie) Plan: Yen is being discharged home today with no new orders or services. She will try to be more aware of her medications, but has generally done a very good job. Yen will continue per her plan of care, her normal med regime was restarted this morning, and she will f/u with her PCP on 06/03. Yen will transport home in a private vehicle with her . PFSH All Active Problems (Updated 05/26/24 @ 13:49 by Lonnie Govea MD) Accidental medication overdose (Acute) Accidental overdose of antihypertensive (Acute) Chronic cough (Acute) Mass of right breast (Acute) Fatigue (Acute) COVID (Acute) Achilles tendinosis of right lower extremity (Acute) UTI (urinary tract infection) (Acute) Atrial fibrillation with RVR (Acute) Migraine headache without aura (Acute) Migraine headache with aura (Acute) Lesion of lip (Acute) Arthralgia (Acute) Chronic back pain (Chronic) Chronic headaches (Chronic) Atrial fibrillation (Chronic) Medical History Basal cell carcinoma of skin left upper back Dysuria Screening mammogram, encounter for Preventative health care GERD (gastroesophageal reflux disease) Tension headache Anxiety Solar lentigo Lactose intolerance Abdominal pain, epigastric Paresthesia Aphasia H/O measles Heel spur Skin lesion of face Menopausal syndrome (hot flashes) Seasonal allergies Dysphagia Hyperlipidemia Grief reaction Surgical History H/O esophagogastroduodenoscopy H/O cardiac radiofrequency ablation Achilles tendon tear both repaired here. Social History Smoking/Tobacco Use Status: Never Smoking risk assessment performed?: Yes Alcohol Intake: current Alcohol Intake frequency: a few times a week Alcohol type: hard liquor Drug use: Never Substance use type: does not use Household members: spouse Housing: house Number of Children: 2 current occupation: Retired teacher What is your relationship status?: Panel score (0-1 are the most socially isolated patients): 1 What type of physical activity do you participate in: walking, independent ambulation and additional Details: barn chores and stretches with kids at school Frequency: daily Do you feel safe at home: Yes Do you feel safe in your relationship?: Yes Readmission Within the Past 30 Days Yes or No: No SDOH(Care Management) Screening Will the Patient Participate in the Screening?: Yes Do you worry about having a steady place to live?: no Problems where you live: no known problems In the past 12 months, have you had to go without electric, gas, oil or water in your home?: no Have you or anyone in your house had to go without enough food to eat?: no Has lack of transportation kept you from medical appointments or from doing things needed for daily living?: no Has anyone in your support network made you feel unsafe for any reason?: no
== END 2024-05-27 10:48 | disposition home or self-care (01) ==
LOC: ER 14:25 → MS 15:33
PROVIDERS: Admitting Provider Hospitalist; Emergency Provider Student in an Organized Health Care Education/Training Program; PCP Nurse Practitioner Family; Visit Provider Hospitalist
DX: T50.0X1A Poisoning by mineralocorticoids and their antagonists, accidental (unintentional), initial encounter (principal); T44.7X1A Poisoning by beta-adrenoreceptor antagonists, accidental (unintentional), initial encounter; T46.5X1A Poisoning by other antihypertensive drugs, accidental (unintentional), initial encounter; T47.1X1A Poisoning by other antacids and anti-gastric-secretion drugs, accidental (unintentional), initial encounter; T48.6X1A Poisoning by antiasthmatics, accidental (unintentional), initial encounter; T47.2X1A Poisoning by stimulant laxatives, accidental (unintentional), initial encounter; T45.511A Poisoning by anticoagulants, accidental (unintentional), initial encounter; T50.3X1A Poisoning by electrolytic, caloric and water-balance agents, accidental (unintentional), initial encounter; R00.1 Bradycardia, unspecified; I10 Essential (primary) hypertension; G40.909 Epilepsy, unspecified, not intractable, without status epilepticus; R05.3 Chronic cough; G89.29 Other chronic pain; M54.9 Dorsalgia, unspecified; K21.9 Gastro-esophageal reflux disease without esophagitis; F41.9 Anxiety disorder, unspecified; R13.10 Dysphagia, unspecified; E78.5 Hyperlipidemia, unspecified; I48.0 Paroxysmal atrial fibrillation; R07.89 Other chest pain
CPT/HCPCS: 00123; 36415; 80053; 93005; 99285; 83735; 84484; 85025; 93010; 99222; 99239; G0378; J3490

== ENCOUNTER 2024-07-01 13:07 | Outpatient (REF) | payer MEDICARE, SELFPAY ==
--- NOTE | 2024-07-01 12:30 | PAPFT_PTH ---
PATIENT: Yen Matthews LOC: [facility]#:[id number] AGE/SX: 63/F ROOM: RE07/01/[address]: Joan Saez : 1960 BED: DIS: 07/01/2024 SPEC #: [id number] RECD: 07/02/24 13:17 STATUS: PARVEEN REStephen #: [id number] FANTA: 07/01/24 12:[address]: Joan Saez DEPT: [facility] Cytology RECD BY: Magy Garrido Tissues: 1 - CX/ENDOCX FOR PAP SMEARS Procedures: PAP THIN PREP/UVM Screening HPV DNA PROBE Comments: [id number] (HPV 16 & 18/45)
== END 2024-07-01 13:08 | disposition home or self-care (01) ==
LOC: NCHCN 13:07
PROVIDERS: PCP Nurse Practitioner Family; Visit Provider Nurse Practitioner Family
DX: Z11.51 Encounter for screening for human papillomavirus (HPV) (principal); Z01.419 Encounter for gynecological examination (general) (routine) without abnormal findings
CPT/HCPCS: 88142; 87624

== ENCOUNTER 2024-09-23 12:45 | Outpatient (REF) | payer MEDICARE, SELFPAY ==
[2024-09-23 14:50] LABS: Abs Immature Grans 0.05 10^3/uL (0.0-0.06); Absolute Basophil Count 0.04 10^3/uL (0.0-0.2); Absolute Eosinophil Count 0.12 10^3/uL (0.0-0.7); Absolute Monocyte Count 0.67 10^3/uL (0.1-0.8); Absolute Neutrophil Count 4.98 10^3/uL (1.2-6.7); Basophils % 0.5 %; Eosinophils % 1.5 %; HCT 48.1 % (36.0-46.0); HGB 16.7 g/dL (11.2-15.7); Immature Grans % 0.6 %; Lymphocytes % 27.3 %; MCH 30.3 pg (27.0-33.0); MCHC 34.7 % (32.0-36.0); MCV 87 fL (80-95); MPV 10.6 fL (8.0-11.0); Monocytes % 8.3 %; Neutrophils % 61.8 %; Platelet Count 280 10^3/uL (130-400); RBC 5.52 10^6/uL (3.93-5.22); RDW 13.7 % (11.7-14.6); WBC 8.06 10^3/uL (4.4-10.8)
[2024-09-23 16:01] LABS: ALT 49 U/L (14-59); AST 30 U/L (15-37); Albumin 4.3 g/dL (3.4-5.0); Alkaline Phosphatase 106 U/L (46-116); Anion Gap 12.7 mmol/L (3-11); BUN 17 mg/dL (7-18); CO2 24.3 mmol/L (21.0-32.0); CREATININE 0.7 mg/dL (0.55-1.02); Calcium 9.6 mg/dL (8.5-10.1); Chloride 101 mmol/L (98-107); Estimated GFR 95.32 (mL/min/1.73m2); Glucose 115 mg/dL (74-106); Potassium 4.8 mmol/L (3.5-5.1); Sodium 138 mmol/L (136-145); TSH (W/Ref FT4) 1.04 uIU/mL (0.36-3.74); Total Protein 7.6 g/dL (6.4-8.2); Vitamin B12 495 pg/mL (193-986)
== END 2024-09-23 12:46 | disposition home or self-care (01) ==
LOC: NCHCN 12:45
PROVIDERS: PCP Nurse Practitioner Family; Visit Provider Nurse Practitioner Family
DX: R42 Dizziness and giddiness (principal)
CPT/HCPCS: 80053; 82607; 83735; 84443; 85025

== ENCOUNTER 2024-09-27 02:08 | Outpatient (CLI) | payer MEDICARE, SELFPAY ==
--- NOTE | 2024-09-27 | DI.RAD_ITS ---
Exam(s) XR ABDOMEN FLAT PLATE EXAM: 2D digital imaging was performed. CLINICAL HISTORY: ABD/FLANK PAIN,RADIATING TO BACK,ASSESS FOR CONSTIPATION. COMPARISON: No exams were available for comparison TECHNIQUE: Supine views of the abdomen performed. FINDINGS: BOWEL GAS PATTERN: The stomach and small bowel are nondistended. There is stool seen throughout th e colon with some sparing of the rectosigmoid. CALCIFICATIONS: No radiopaque calcifications however the kidneys are mostly obscured by overlying sto ol. OSSEOUS STRUCTURES: Unremarkable for age. OTHER FINDINGS: None. IMPRESSION: 1. Nonobstructive bowel gas pattern. Findings consistent with constipation. 2. No radiopaque calculi. DATA REPOSITORY: RADIATION DOSE DELIVERED:
--- NOTE | 2024-09-27 | DI.US_ITS ---
Exam(s) US ABDOMEN EXAM: US ABDOMEN CLINICAL HISTORY: ABD PAIN,R10.9,PRIMARILY LT FLANK RADIATING TO BACK,? MASS TECHNIQUE: Ultrasound abdomen performed using standard protocol. COMPARISON: CT CT THORAX ABD/PEL CTA from 06/04/2020 FINDINGS: LIVER: Normal size and echogenicity. No focal liver lesions are seen. GALLBLADDER: No evidence of cholelithiasis. No evidence of wall thickening. No pericholecystic fluid identified. GONZALEZ'S SIGN: Negative. BILIARY SYSTEM: No intrahepatic or extrahepatic biliary ductal dilation. KIDNEYS: Kidneys are symmetric in size. No evidence of renal calculi. No evidence of hydronephrosis. No suspicious renal mass identified. 8 millimeter simple cyst in the mid left kidney. Follow-up rec ommended. PANCREAS: Normal where visualized. SPLEEN: Not enlarged. ABDOMINAL AORTA AND IVC: Visualized portions normal caliber. ASCITES: None seen. IMPRESSION: No acute abnormality. DATA REPOSITORY:
== END 2024-09-27 02:28 ==
LOC: DI 02:08
PROVIDERS: PCP Nurse Practitioner Family; Visit Provider Nurse Practitioner Family
DX: R10.9 Unspecified abdominal pain (principal)
CPT/HCPCS: 74018; 76700

== ENCOUNTER → 2024-11-29 08:58 | Outpatient (BNVA) | payer MEDICARE, SELFPAY | PROVIDERS: PCP Nurse Practitioner Family; Referring Provider Nurse Practitioner Family; Visit Provider Nurse Practitioner Adult Health | DX: G43.109 Migraine with aura, not intractable, without status migrainosus (principal); G43.009 Migraine without aura, not intractable, without status migrainosus | CPT/HCPCS: 99215 ==

== ENCOUNTER 2025-05-20 02:20 | Outpatient (CLI) | payer MEDICARE, SELFPAY ==
[2025-05-20 16:16] LABS: Digoxin 0.65 ng/mL (0.80-2.00)
== END 2025-05-20 02:21 | disposition home or self-care (01) ==
LOC: LBO 02:20
PROVIDERS: PCP Nurse Practitioner Family; Visit Provider Internal Medicine Cardiovascular Disease
DX: I48.91 Unspecified atrial fibrillation (principal)
CPT/HCPCS: 36415; 80162